=== PATIENT | female | born 1970 | race Caucasian/White ===

== ENCOUNTER 2017-02-27 11:21 | Inpatient (IN) | payer OTHER ==
[2017-02-27] VITALS (11 sets, daily range): BP systolic 73–138; BP diastolic 52–91; PULSE 53–74; TEMP 36.1–36.3; O2SAT 98–100; Ht 162.6 cm; Wt 85.8 kg
[~2017-02-27] VITALS: Ht 162.6 cm; Wt 85.8 kg
[~2017-02-27 11:21] MED LIST: ALUMSUS PO; BISA10SU38 PR; CLON0.5T3 PO; DIAZ5TAB PO; DIPH25TA24 PO; DOCU100C31 PO; FENTANYL CITRATE INJ 50 MCG/1 ML 2 ML VIAL IV ONE; FLNIN NAE; GFNSR600 PO; HYDR1OIN11 TOP; IBUP1CAP9 PO; KETAMINE HCL INJ 50 MG/ML 10 ML VIAL IV ONE; LOPE-5 PO; MIDAZOLAM HCL 5 MG/ML 2ML VIAL IV ONE; NEOMOIN3 TOP; NYSTPOW2 TOP; POTA-327 PO; RBTDMUDL5 PO; SODIUM CHLORIDE 0.9% 10ML FLUSH IV ONE; SODIUM CHLORIDE 0.9% 2.5 ML FLUSH IV ONE; SODIUM CHLORIDE 0.9% INJ 10 ML VIAL IV ONE; TYLOTC500 PO; VECURONIUM BROMIDE 10 MG VIAL IV ONE; [UNRECOGNIZED DRUG - CODE] PO; [UNRECOGNIZED DRUG - CODE] TOP
[2017-02-27] MEDS ORDERED: RAPID SEQUENCE INDUCTION BAG ONE (12:17)
--- NOTE | 2017-02-27 12:20 | EMERGENCY ROOM VISIT NOTE ---
History Report prepared by Luma: Nubia Velazquez Under the Supervision of: Dr. Tony Bullard M.D. First contact with patient: 12:05 Chief Complaint: RESPIRATORY PROBLEMS Stated Complaint: STRAINED BREATHING AT REST, LETHARGY History of Present Illness The patient is a 46 year old female who presents to the Emergency Room with her caregiver from [facility]. He states "the [employer] told me I should bring her to [facility]. They did 2 chest x-rays there and she has persistently been having trouble breathing. She also has reduced lung capacity." He notes at [facility] her oxygen levels were in the 70s. This HPI is limited secondary to the patient' s status. Source of History: caregiver History Limited By: dyspnea Position: other (global) Timing: other (persistent) Note: Unobtainable secondary to the patient's status. Review of Systems ROS is limited secondary to the patient's status. Past Medical & Surgical Medical Problems: (1) Acute respiratory failure with hypoxia (2) ANXIETY STATE NOS (3) Aspiration pneumonia (4) HYPERLIPIDEMIA NEC/NOS (5) HYPOXEMIA (6) SEVERE MENTAL RETARDAT Family History FHx: cancer Social History Smoking Status: Never Smoker Alcohol Use: none Drug Use: none Marital Status: single Housing Status: assisted living Occupation Status: disabled Current/Historical Medications Scheduled Clonazepam (Klonopin), 0.5 MG PO TID Diazepam (Valium), 5 MG PO QD@2000 Diazepam (Valium), 2.5 MG PO BID Docusate Sodium (Docusate Sodium), 100 MG PO BID Doxepin Hcl (Sinequan), 10 MG PO QD@2000 Ethinyl Estradiol/Levonorgest (Rhona-28), 1 TAB PO DAILY Fexofenadine Hcl (Nasrin), 180 MG PO DAILY Fluticasone Propionate (Nasal) (Flonase Allergy Relief), 2 SPRAYS RAGHAV DAILY Guaifenesin Ext Rel (Mucinex Ext Rel), 1,200 MG PO BID Magnesium Oxide (Mag-Ox), 400 MG PO BID Montelukast Sodium (Singulair), 10 MG PO HS Multiple Vitamin (Multivitamin), 1 TABLET PO DAILY Omeprazole (Prilosec), 20 MG PO DAILY Potassium Chloride (Micro-K Ext Rel), 10 MEQ PO BID Pravastatin Sodium (Pravachol), 20 MG PO HS Sertraline (Zoloft), 25 MG PO DAILY Trazodone Hcl (Trazodone), 100 MG PO UD Scheduled PRN Acetaminophen (Tylenol), 500 MG PO Q4 PRN for Pain or Fever Albuterol Sulf (Proventil 0.083% 2.5MG/3ML), 2.5 MG INH Q2H PRN Aluminum/Magnesium/Simeth (Maalox Max Susp), 30 ML PO Q4H PRN for Indigestion Amoxicillin (Amoxil), 2,000 MG PO UD PRN Bisacodyl (Dulcolax), 1 SUPP MN UD PRN Dermatological Products, Misc. (Liquid Bandage), 1 APPLN TOP for CUTS,SCRAPES Dextromethorphan-Guaifenesin (Robitussin-Dm Syrup), 10 ML PO Q6 PRN for Cough Diphenhydramine Hcl (Benadryl Allergy), 1 TAB PO Q6H PRN for Itching Hydrocortisone (Topical) (Cortizone-10), 1 APPLN TOP TID PRN for RASH Ibuprofen (Ibuprofen), 400 MG PO Q6 PRN for MENSTRUAL CRAMPS Loperamide Hcl (Imodium A-D), 2 MG PO UD PRN for Diarrhea Neomycin/Polymyx/Bacitr (Neosporin), 1 APPL TOP for CUTS,SCRAPES Nystatin-Triamcinolone (Nystatin/Triamcinolon... 127902-2.1 Unit/gm-%), 1 APPLN TD TID PRN for PRN Powders (Vagisil Deodorant), 1 APPL TOP UD PRN for VAGINAL ICTH/REDNESS Miscellaneous Medications Lactobacillus (Floranex) Starch-Maltodextrin (Thickenin (Thick-It Original), PO Allergies Coded Allergies: Etomidate (Verified Allergy, Unknown, UNKNOWN, 02/27/17) Haloperidol (Verified Allergy, Unknown, 02/27/17) Physical Exam Vital Signs Date Time Temp Pulse Resp B/P (MAP) Pulse Ox O2 Delivery O2 Flow Rate FiO2 02/27/17 13:21 66 18 82/54 100 02/27/17 13:16 74 18 87/57 100 02/27/17 13:15 60 02/27/17 13:11 78 19 100 02/27/17 13:10 96/66 02/27/17 13:10 100 02/27/17 13:06 89 18 80/55 100 02/27/17 13:02 87/47 02/27/17 13:01 86 25 02/27/17 12:41 99 16 97 02/27/17 12:36 89 4 98 02/27/17 12:31 81 20 86 02/27/17 12:27 110/78 02/27/17 12:26 84 13 82 02/27/17 12:26 100 02/27/17 12:21 87 02/27/17 12:21 89 21 95 02/27/17 12:16 93 21 Physical Exam GENERAL: Patient is a healthy-appearing well-nourished female HEAD: Normocephalic atraumatic EYES: Ocular movements intact pupils equal and react to light OROPHARYNX Cyanotic around oral mucosal area NECK: Supple no nuchal rigidity CHEST: Good equal expansion LUNGS: Clear and equal to auscultation CARDIAC: Normal S1 and S2 ABDOMEN: Soft nontender no guarding BACK: No CVA tenderness EXTREMITIES: No pain upon palpation normal muscle strength in all groups no clubbing cyanosis or edema NEURO: Patient is following commands and answering questions appropriately. Alert and oriented x3 Cranial Nerves 2-12 grossly intact Medical Decision & Procedures ER Provider Diagnostic Interpretation: Radiology results as stated below per my review and radiologist interpretation: CHEST ONE VIEW PORTABLE HISTORY: 46 years-old Female Sepsis acute sepsis COMPARISON: Chest radiograph 07/15/2014 TECHNIQUE: Portable upright AP view of the chest FINDINGS: Endotracheal tube is present overlying the midline terminating at the level of the stan. Chronic right perihilar and bibasilar opacities are again noted. Chronic reticular bilateral opacities redemonstrated with new multifocal patchy alveolar opacities throughout the left lung. No pneumothorax or large pleural effusion. Emphysema. Bones of the chest appear grossly intact. IMPRESSION: 1. Endotracheal tube terminates at the level the stan. This could be retracted approximately 2.5 cm. 2. Multifocal alveolar opacities are present within the lung bases and left upper lobe suspicious for pneumonia and/or pneumonitis. Please refer to the CTA of the chest of same day for further details. The above report was generated using voice recognition software. It may contain grammatical, syntax or spelling errors. Electronically signed by: Marlon Contreras M.D. 02/27/2017 1:10 PM Dictated Date/Time: 02/27/2017 1:06 PM HEAD WITHOUT CONTRAST (CT) CLINICAL HISTORY: 46 years-old Female with Pt AMS. Acute altered mental status with lethargy TECHNIQUE: Multiple axial CT images of the head were obtained without contrast. A dose lowering technique was utilized adhering to the principles of ALARA. COMPARISON: CT head 12/05/2015. FINDINGS: No acute intracranial hemorrhage, midline shift, intracranial mass, hydrocephalus, or territorial ischemia. Prominent CSF space of the posterior fossa is unchanged and may be congenital, unchanged from comparison. The calvarium is intact. The paranasal sinuses, mastoid air cells, and middle ear cavities are clear. Note is made of disconjugate gaze. IMPRESSION: No acute intracranial abnormality. The above report was generated using voice recognition software. It may contain grammatical, syntax or spelling errors. Electronically signed by: Marlon Contreras M.D. 02/27/2017 1:05 PM Dictated Date/Time: 02/27/2017 1:02 PM (CHEST FOR PE) ANGIO WITH CT DOSE: 1070.49 mGy.cm HISTORY: 46 years-old Female presents with acute hypoxia, lethargy and respiratory failure. TECHNIQUE: Multiple CTA images of the chest were obtained after the intravenous administration of 90 ml Optiray 320. Coronal and sagittal MIPS were obtained from the axial data set and were submitted for review. A dose lowering technique was utilized adhering to the principles of ALARA. COMPARISON: Chest radiograph of same day, chest radiograph 07/15/2014, CTA chest 03/17/2009. FINDINGS: CTA: The heart is mildly enlarged. The thoracic aorta is not well opacified secondary to contrast bolus timing. Imaged great vessels appear to be patent. No evidence of aortic dissection or aneurysm. The pulmonary arterial tree is opacified to the level of the proximal portion of the subsegmental branches and demonstrates no focal filling defects to suggest pulmonary thromboembolic disease. Air within the right subclavian vein is likely iatrogenic. CT CHEST: Endotracheal tube is present within the trachea terminating at the level of the stan. Heterogeneous appearance of the thyroid suggests multinodular goiter. Low attenuating right hilar lymph node measures 1.3 x 1.5 cm on image 175 series 6 and appears unchanged from 03/17/2009 study. Chronic low attenuating consolidations with spiculated and irregular margins demonstrating macroscopic fat attenuation are again seen bilaterally with a 5.1 x 4.4 cm consolidation present within the perihilar right lower lobe abutting the fissure, previously measuring approximately 4.7 x 4.5 cm on study dated 03/09/2009. Additional similar-appearing consolidation is present within the left lower lobe, 5.3 x 7.0 cm, previously 5.0 x 8.6 cm. Moderate to severe upper lobe predominant centrilobular emphysema with chronic bilateral reticular opacities suggesting areas of chronic scarring. There are patchy airspace opacities present bilaterally, notably within the left greater than right upper lobes with groundglass and consolidative opacities of the lower lobes suggesting areas of atelectasis and/or pneumonitis. Fatty attenuating spiculated opacity of the right upper lobe measuring 1.2 x 1.8 cm on image 185 series 6 is increase in size from comparison, previously 0.9 x 1.3 cm. Mild bronchial wall thickening of the lung bases. Liver appears mildly enlarged. Soft tissues are unremarkable. Bones appear intact. IMPRESSION: 1. No acute aortic pathology or evidence of pulmonary thromboembolic disease. 2. Multifocal consolidative alveolar opacities of the left greater than right upper lobes and to a lesser extent within the bilateral lower lobes suggests multifocal pneumonia. 3. Large irregular masslike areas of low attenuating consolidation with macroscopic fat attenuation of the perihilar right upper lobe and basal left lower lobe are again noted without significant change from 03/17/2009 study with 1.8 cm low attenuating consolidation of the right upper lobe mildly enlarged from comparison. Differential considerations would include chronic lipoid pneumonia, or pulmonary alveolar proteinosis among other etiologies. These findings could be correlated with bronchoscopy and tissue sampling for definitive diagnosis. 4. Low attenuating right hilar lymph node also noted. The above report was generated using voice recognition software. It may contain grammatical, syntax or spelling errors. Electronically signed by: Marlon Contreras M.D. 02/27/2017 1:36 PM Dictated Date/Time: 02/27/2017 1:20 PM Laboratory Results 02/27/17 12:35 Red Blood Count 4.43, Mean Corpuscular Volume 97.1, Mean Corpuscular Hemoglobin 30.2, Mean Corpuscular Hemoglobin Concent 31.2, Mean Platelet Volume 10.1, Neutrophils (%) (Auto) 61.4, Lymphocytes (%) (Auto) 22.6, Monocytes (%) (Auto) 13.4, Eosinophils (%) (Auto) 2.0, Basophils (%) (Auto) 0.3, Neutrophils # (Auto ) 7.04, Lymphocytes # (Auto) 2.59, Monocytes # (Auto) 1.54, Eosinophils # (Auto ) 0.23, Basophils # (Auto) 0.03 02/27/17 12:35 Test 02/27/17 12:35 02/27/17 12:44 02/27/17 12:49 02/27/17 13:22 White Blood Count 11.46 K/uL (4.8-10.8) Red Blood Count 4.43 M/uL (4.2-5.4) Hemoglobin 13.4 g/dL (12.0-16.0) Hematocrit 43.0 % (37-47) Mean Corpuscular Volume 97.1 fL (80-100) Mean Corpuscular Hemoglobin 30.2 pg (25-34) Mean Corpuscular Hemoglobin Concent 31.2 g/dl (32-36) Platelet Count 250 K/uL (130-400) Mean Platelet Volume 10.1 fL (7.4-10.4) Neutrophils (%) (Auto) 61.4 % Lymphocytes (%) (Auto) 22.6 % Monocytes (%) (Auto) 13.4 % Eosinophils (%) (Auto) 2.0 % Basophils (%) (Auto) 0.3 % Neutrophils # (Auto) 7.04 K/uL (1.4-6.5) Lymphocytes # (Auto) 2.59 K/uL (1.2-3.4) Monocytes # (Auto) 1.54 K/uL (0.11-0.59) Eosinophils # (Auto) 0.23 K/uL (0-0.5) Basophils # (Auto) 0.03 K/uL (0-0.2) RDW Standard Deviation 54.8 fL (36.4-46.3) RDW Coefficient of Variation 15.6 % (11.5-14.5) Immature Granulocyte % (Auto) 0.3 % Immature Granulocyte # (Auto) 0.03 K/uL (0.00-0.02) Prothrombin Time 10.2 SECONDS (9.0-12.0) Prothromb Time International Ratio 1.0 (0.9-1.1) Activated Partial Thromboplast Time 24.5 SECONDS (21.0-31.0) Partial Thromboplastin Ratio 0.9 Estimated GFR () 75.0 Estimated GFR (Non- 64.7 BUN/Creatinine Ratio 12.6 (10-20) Calcium Level 8.1 mg/dl (8.5-10.1) Total Bilirubin 0.2 mg/dl (0.2-1) Aspartate Amino Transf (AST/SGOT) 62 U/L (15-37) Alanine Aminotransferase (ALT/SGPT) 52 U/L (12-78) Alkaline Phosphatase 101 U/L (45-117) Total Creatine Kinase 567 U/L (26-192) Creatine Kinase MB 6.3 ng/ml (0.5-3.6) Creatine Kinase MB Ratio 1.1 (0-3.0) Total Protein 8.3 gm/dl (6.4-8.2) Albumin 3.0 gm/dl (3.4-5.0) Globulin 5.3 gm/dl (2.5-4.0) Albumin/Globulin Ratio 0.6 (0.9-2) Bedside Lactic Acid Venous 3.12 mmol/L (0.90-1.70) Bedside Chloride 95 mEq/L (101-112) Bedside Total CO2 34 mEq/l (24-31) Anion Gap 16.0 mmol/L (16-25) Bedside Blood Urea Nitrogen 14 mg/dl (7-18) Bedside Creatinine 0.9 mg/dl (0.6-1.3) Bedside Glucose (other) 99 mg/dl (70-99) Bedside Ionized Calcium (Prosper) 1.12 mmol/l (1.12-1.32) Bedside Hemoglobin 11.9 g/dl (12.0-16.0) Bedside Hematocrit 35 % (37-47) Bedside Blood Gas pH (LAB) 7.35 (7.35-7.45) Bedside Blood Gas pCO2 (LAB) 63 mmHg (35-46) Bedside Blood Gas pO2 (LAB) 220 mmHg (80-95) Bedside Blood Gas HCO3 (LAB) 35 meq/L (19-24) Bedside Blood Gas Total CO2 37 mEq/l (24-31) Bedside Blood Gas Base Excess (LAB) 9.0 meq/L (-9-1.8) Bedside Blood Gas O2 Saturation 100.0 % (90-95) Bedside Sodium 138 mEq/L (135-144) Bedside Potassium 4.5 mEq/L (3.3-5.0) Labs reviewed by ED physician. Medications Administered Medications (Trade) Dose Ordered Sig/Kiera Route Start Time Stop Time Status Last Admin Dose Admin Miscellaneous (Rapid Sequence Induction Bag) 1 ea STK-MED ONCE N/A 02/27/17 12:17 02/27/17 12:18 DC 02/27/17 12:17 1 EA Propofol (Diprivan Iv Emulsion 100ml Vial) 1 dose STK-MED ONCE IV 02/27/17 12:26 02/27/17 12:27 DC 02/27/17 14:25 1 DOSE Albuterol/ Ipratropium (Duoneb) 12 ml ONE ONCE INH 02/27/17 12:45 02/27/17 12:46 DC 02/27/17 13:00 12 ML Methylprednisolone Sodium Succinate (Solu-Medrol IV) 60 mg NOW STAT IV 02/27/17 12:36 02/27/17 12:39 DC 02/27/17 14:34 60 MG Cefepime HCl 2000 mg/Dextrose 122 ml @ 200 mls/hr NOW STAT IV 02/27/17 12:36 02/27/17 13:12 DC 02/27/17 14:06 200 MLS/HR Levofloxacin (Levaquin / D5W) 750 mg NOW STAT IV 02/27/17 12:36 02/27/17 12:39 DC 02/27/17 14:35 750 MG Vancomycin HCl 1000 mg/Sodium Chloride 270 ml @ 125 mls/hr NOW STAT IV 02/27/17 12:36 02/27/17 14:45 DC 02/27/17 14:06 125 MLS/HR Sodium Chloride 1,000 ml @ 999 mls/hr Q1H1M STAT IV 02/27/17 12:36 02/27/17 13:36 DC 02/27/17 14:22 999 MLS/HR Magnesium Sulfate (Magnesium Sulfate) 1 gm NOW STAT IV 02/27/17 12:45 02/27/17 12:46 DC 02/27/17 14:35 1 GM Propofol (Diprivan Iv Emulsion 100ml Vial) 1 dose UD PRN IV 02/27/17 13:10 03/02/17 13:09 02/27/17 16:56 1 DOSE ECG Indication: SOB/dyspnea Rate (beats per minute): 64 Rhythm: sinus rhythm Findings: no acute ischemic change, prolonged QT, no ectopy, other (short MN, t wave inversion, anterior leads) ED Course 1205: Past medical records reviewed. The patient was evaluated in room A1. A complete history and physical examination was performed. 1236: Sodium Chloride 1000 ml @ 999 mls/hr, Vancomycin HCI 1000 mg/Sodium Chloride 270 ml @ 999 mls/hr IV, Levofloxacin 750 mg IV, Cefepime HCI 2000 mg/ Dextrose 122 ml @ 200 mls/hr, Methylprednisolone Sodium Succinate 60 mg IV. 1245: Magnesium Sulfate 1 gm IV, Propofol 1 dose IV, Duoneb 12 ml INH. 1311: I discussed the patient's case with Dr. Butterfield, he has agreed to evaluate the patient for further management and care. Medical Decision The patient is a 46 year old female who presents to the ED with complaints of SOB. Differential diagnosis: Etiologies such as infections, reactive airway disease, pneumonia, pneumothorax , COPD, CHF, cardiac ischemia, pulmonary embolism, musculoskeletal, gastrointestinal, as well as others were entertained. This is a 46-year-old female who presents to emergency department hypoxic and in acute distress. The patient keeps tearing at all lines and will not hold still. For this reason the patient was transferred to the trauma bay immediately. To get the patient's hypoxia fixed and her comfortable she was intubated to protect her airway. She was sent for a CAT scan of the head as well as the chest. This was concerning for aspiration pneumonia. The patient was found to have a lactic acid of 3. An IV was established, patient given normal saline bolus, cefepime, Levaquin, vancomycin. She was pancultured up and discussed with both the ICU as well as the hospitalist. Caregivers were in agreement with the treatment plan. Medication Reconcilliation Current Medication List: was personally reviewed by me Blood Pressure Screening Patient's blood pressure: Normal blood pressure Consults Time Called: 1309 Consulting Physician: Katharine Bragg Returned Call: 1311 I discussed the patient's case with Dr. Butterfield, he has agreed to evaluate the patient for further management and care. Impression Primary Impression: Respiratory failure Additional Impression: Pneumonia Critical Care I have personally spent greater than 90 minutes of critical care time in the direct management of this patient. This includes bedside care, interpretation of diagnostic studies, and testing, discussion with consultants, patient, and family members, and other required patient management activities. This 90 minutes is in excess of all separately billable procedures. Scribe Attestation The scribe's documentation has been prepared under my direction and personally reviewed by me in its entirety. I confirm that the note above accurately reflects all work, treatment, procedures, and medical decision making performed by me. Departure Information Dispostion Being Evaluated By Hospitalist Referrals No Doctor, Assigned (PCP) Patient Instructions My [facility] Problem Qualifiers Primary Impression: Respiratory failure Chronicity: acute Respiratory failure complication: hypoxia Qualified Codes : J96.01 - Acute respiratory failure with hypoxia Additional Impression: Pneumonia Pneumonia type: due to unspecified organism Laterality: unspecified laterality Lung location: unspecified part of lung Qualified Codes: J18.9 - Pneumonia, unspecified organism
[2017-02-27] MEDS ORDERED: PROPOFOL IV EMULSION 10 MG/ML 20 ML VIAL IV ONE (12:23)
[2017-02-27] MEDS ORDERED: KETAMINE HCL INJ 50 MG/ML 10 ML VIAL ONE (12:26)
[2017-02-27] MEDS ORDERED: PROPOFOL IV EMULSION 10 MG/ML 100 ML VIAL IV ONE (12:26)
[2017-02-27] MEDS ORDERED: VANCOMYCIN INJ 1,000 MG in SODIUM CHLORIDE 0.9% 250ML 250 ML IV STA (12:36)
[2017-02-27] MEDS ORDERED: SODIUM CHLORIDE 0.9% 1000ML 1,000 ML IV STA (12:36)
[2017-02-27] MEDS ORDERED: METHYLPREDNISOLONE 125 MG VIAL IV STA (12:36)
[2017-02-27] MEDS ORDERED: CEFEPIME IV 2,000 MG in DEXTROSE 5% 100ML 100 ML IV STA (12:36)
[2017-02-27] MEDS ORDERED: LEVAQUIN 750MG / 150ML D5W IV STA (12:36)
[2017-02-27] MEDS ORDERED: PROPOFOL IV EMULSION 10 MG/ML 100 ML VIAL IV PRN (12:45)
[2017-02-27] MEDS ORDERED: OPTIRAY 320 IV PRN (12:45)
[2017-02-27] MEDS ORDERED: MAGNESIUM SULFATE 1GM / D5W 1 GM BAG IV STA (12:45)
[2017-02-27] MEDS ORDERED: ALBUT/IPRATROP 3MG/0.5MG NEB 3 ML VIAL INH ONE (12:45)
[2017-02-27 12:57] LABS: BASO % 0.3 %; BASO ABS # 0.03 K/uL (0-0.2); COMPLETE YES; IG% 0.3 %; LYMPH % 22.6 %; LYMPH ABS # 2.59 K/uL (1.2-3.4); MEAN CELL VOLUME 97.1 fL (80-100); MEAN CORPUSCULAR HEMOGLOBIN 30.2 pg (25-34); MEAN CORPUSCULAR HGB CONC 31.2 g/dl (32-36); MEAN PLATELET VOLUME 10.1 fL (7.4-10.4); MONO % 13.4 %; NEUT % 61.4 %; PLATELET COUNT 250 K/uL (130-400); RED BLOOD COUNT 4.43 M/uL (4.2-5.4); WHITE BLOOD COUNT 11.46 K/uL (4.8-10.8)
[2017-02-27 13:01] LABS: ISTAT CREATININE 0.9 mg/dl (0.6-1.3); ISTAT IONIZED CALCIUM 1.12 mmol/l (1.12-1.32)
--- NOTE | 2017-02-27 13:07 | DIAGNOSTIC IMAGING REPORT ---
HEAD WITHOUT CONTRAST (CT) CLINICAL HISTORY: 46 years-old Female with Pt AMS. Acute altered mental status with lethargy TECHNIQUE: Multiple axial CT images of the head were obtained without contrast. A dose lowering technique was utilized adhering to the principles of ALARA. COMPARISON: CT head 12/05/2015. FINDINGS: No acute intracranial hemorrhage, midline shift, intracranial mass, hydrocephalus, or territorial ischemia. Prominent CSF space of the posterior fossa is unchanged and may be congenital, unchanged from comparison. The calvarium is intact. The paranasal sinuses, mastoid air cells, and middle ear cavities are clear. Note is made of disconjugate gaze. IMPRESSION: No acute intracranial abnormality. The above report was generated using voice recognition software. It may contain grammatical, syntax or spelling errors. Electronically signed by: Marlon Contreras M.D. 02/27/2017 1:05 PM Dictated Date/Time: 02/27/2017 1:02 PM
--- NOTE | 2017-02-27 13:12 | DIAGNOSTIC IMAGING REPORT ---
CHEST ONE VIEW PORTABLE HISTORY: 46 years-old Female Sepsis acute sepsis COMPARISON: Chest radiograph 07/15/2014 TECHNIQUE: Portable upright AP view of the chest FINDINGS: Endotracheal tube is present overlying the midline terminating at the level of the stan. Chronic right perihilar and bibasilar opacities are again noted. Chronic reticular bilateral opacities redemonstrated with new multifocal patchy alveolar opacities throughout the left lung. No pneumothorax or large pleural effusion. Emphysema. Bones of the chest appear grossly intact. IMPRESSION: 1. Endotracheal tube terminates at the level the stan. This could be retracted approximately 2.5 cm. 2. Multifocal alveolar opacities are present within the lung bases and left upper lobe suspicious for pneumonia and/or pneumonitis. Please refer to the CTA of the chest of same day for further details. The above report was generated using voice recognition software. It may contain grammatical, syntax or spelling errors. Electronically signed by: Marlon Contreras M.D. 02/27/2017 1:10 PM Dictated Date/Time: 02/27/2017 1:06 PM
[2017-02-27 13:13] LABS: PARTIAL THROMBOPLASTIN RATIO 0.9; PROTHROMBIN TIME (PATIENT) 10.2 SECONDS (9.0-12.0)
[2017-02-27 13:15] LABS: ALT/SGPT 52 U/L (12-78); AST/SGOT 62 U/L (15-37); BLOOD UREA NITROGEN 13 mg/dl (7-18); BUN/CREATININE RATIO 12.6 (10-20); CALCIUM 8.1 mg/dl (8.5-10.1); CARBON DIOXIDE 36 mmol/L (21-32); CHLORIDE 97 mmol/L (98-107); CREATININE 1.03 mg/dl (0.60-1.20); GLUCOSE 89 mg/dl (70-99); SODIUM 135 mmol/L (136-145)
[2017-02-27] MEDS ORDERED: GLUCOSE 10 TABS/TUBE PO PRN (13:15)
[2017-02-27] MEDS ORDERED: IPRATROPIUM BROMIDE NEB SOLN 0.02% 2.5 ML VIAL INH PRN (13:15)
[2017-02-27] MEDS ORDERED: GLUCOSE 40% GEL 15 GM TUBE PO PRN (13:15)
[2017-02-27] MEDS ORDERED: LEVALBUTEROL 1.25MG/0.5ML NEB INH PRN (13:15)
[2017-02-27] MEDS ORDERED: DEXTROSE 50% 50 ML SYR IV PRN (13:15)
[2017-02-27] MEDS ORDERED: GLUCAGON FOR INJ 1 MG VIAL SQ PRN (13:15)
[2017-02-27] MEDS ORDERED: ICU ELECTROLYTE REPLACEMENT PROTOCOL PRN (13:15)
--- NOTE | 2017-02-27 13:20 | Critical Care Consultation ---
Critical Care Consultation Date of Consultation: Feb 27, 2017. Attending Physician: Scout Reason for Consultation: Hypoxic respiratory failure History of Present Illness History is obtained from the senior care caregivers, emergency department physician. Patient had increased work of breathing and was taking to an urgent care noted to have oxygen saturations 70s. After chest x-ray were attempted they were informed to bring the patient to the emergency department. Initially emergency Department patient's oxygen saturation in the 60s and 70s she was cyanotic and agitated. In an effort to protect her and facilitate treatment of patient was intubated in the emergency department. Past Medical/Surgical History Recurrent aspiration Bronchiectasis Angelman syndrome Aspiration pneumonia Severe mental retardation Hyperlipidemia Family History FHx: cancer Social History Resides in a senior care Smoking Status: Never Smoker Drug Use: none Marital Status: single Housing Status: assisted living Occupation Status: disabled Allergies Coded Allergies: Etomidate (Verified Allergy, Unknown, UNKNOWN, 02/27/17) Haloperidol (Verified Allergy, Unknown, 02/27/17) Home Medications Scheduled Clonazepam (Klonopin), 0.5 MG PO TID Diazepam (Valium), 5 MG PO QD@2000 Diazepam (Valium), 2.5 MG PO BID Docusate Sodium (Docusate Sodium), 100 MG PO BID Doxepin Hcl (Sinequan), 10 MG PO QD@2000 Ethinyl Estradiol/Levonorgest (Towson-28), 1 TAB PO DAILY Fexofenadine Hcl (Nasrin), 180 MG PO DAILY Fluticasone Propionate (Nasal) (Flonase Allergy Relief), 2 SPRAYS RAGHAV DAILY Guaifenesin Ext Rel (Mucinex Ext Rel), 1,200 MG PO BID Magnesium Oxide (Mag-Ox), 400 MG PO BID Montelukast Sodium (Singulair), 10 MG PO HS Multiple Vitamin (Multivitamin), 1 TABLET PO DAILY Omeprazole (Prilosec), 20 MG PO DAILY Potassium Chloride (Micro-K Ext Rel), 10 MEQ PO BID Pravastatin Sodium (Pravachol), 20 MG PO HS Sertraline (Zoloft), 25 MG PO DAILY Trazodone Hcl (Trazodone), 100 MG PO UD Scheduled PRN Acetaminophen (Tylenol), 500 MG PO Q4 PRN for Pain or Fever Albuterol Sulf (Proventil 0.083% 2.5MG/3ML), 2.5 MG INH Q2H PRN Aluminum/Magnesium/Simeth (Maalox Max Susp), 30 ML PO Q4H PRN for Indigestion Amoxicillin (Amoxil), 2,000 MG PO UD PRN Bisacodyl (Dulcolax), 1 SUPP AR UD PRN Dermatological Products, Misc. (Liquid Bandage), 1 APPLN TOP for CUTS,SCRAPES Dextromethorphan-Guaifenesin (Robitussin-Dm Syrup), 10 ML PO Q6 PRN for Cough Diphenhydramine Hcl (Benadryl Allergy), 1 TAB PO Q6H PRN for Itching Hydrocortisone (Topical) (Cortizone-10), 1 APPLN TOP TID PRN for RASH Ibuprofen (Ibuprofen), 400 MG PO Q6 PRN for MENSTRUAL CRAMPS Loperamide Hcl (Imodium A-D), 2 MG PO UD PRN for Diarrhea Neomycin/Polymyx/Bacitr (Neosporin), 1 APPL TOP for CUTS,SCRAPES Nystatin-Triamcinolone (Nystatin/Triamcinolon... 241904-0.1 Unit/gm-%), 1 APPLN TD TID PRN for PRN Powders (Vagisil Deodorant), 1 APPL TOP UD PRN for VAGINAL ICTH/REDNESS Miscellaneous Medications Lactobacillus (Floranex) Starch-Maltodextrin (Thickenin (Thick-It Original), PO Current Inpatient Medications Current Inpatient Medications Medications (Trade) Dose Ordered Sig/Kiera Route Start Time Stop Time Status Last Admin Dose Admin Propofol (Diprivan Iv Emulsion 100ml Vial) 1 dose UD PRN IV 02/27/17 12:45 03/02/17 12:44 Ioversol (Optiray 320) 125 ml UD PRN IV 02/27/17 12:45 03/03/17 12:44 UNV Vancomycin HCl 1000 mg/Sodium Chloride 270 ml @ 125 mls/hr NOW STAT IV 02/27/17 12:36 02/27/17 14:45 Sodium Chloride 1,000 ml @ 999 mls/hr Q1H1M STAT IV 02/27/17 12:36 02/27/17 13:36 Miscellaneous Information ( [facility] Electrolyte Replacement Protocol) 1 ea per protocol PRN N/A 02/27/17 13:15 03/06/17 13:14 UNV Pantoprazole Sodium (Protonix Tab) 40 mg DAILY PO 02/28/17 09:00 03/30/17 08:59 UNV Levalbuterol (Xopenex 1.25MG/ 0.5ML Neb) 1.25 mg Q4 PRN INH 02/27/17 13:15 03/29/17 13:14 UNV Ipratropium Manley (Atrovent 0.02% 0.5MG/2.5ML Neb) 0.5 mg Q4H PRN INH 02/27/17 13:15 03/29/17 13:14 UNV Insulin Aspart (novoLOG ASPART) SLIDING SCALE If C... ACHS SC 02/27/17 16:00 03/29/17 15:59 UNV Glucose (Glucose 40% Gel) 15-30 GRAMS 15 GRAMS... UD PRN PO 02/27/17 13:15 03/29/17 13:14 UNV Glucose (Glucose Chew Tab) 4-8 Tablets 4 Tabl... UD PRN PO 02/27/17 13:15 03/29/17 13:14 UNV Dextrose (Dextrose 50% 50ML Syringe) 25-50ML OF 50% DW IV FOR... UD PRN IV 02/27/17 13:15 03/29/17 13:14 UNV Glucagon (Glucagon Inj) 1 mg UD PRN SQ 02/27/17 13:15 03/29/17 13:14 UNV Miscellaneous Information (Consult Glycemic Management Pharmacy) 1 ea ONE STAT N/A 02/27/17 13:10 02/27/17 13:11 UNV Fentanyl Citrate (Fentanyl Inj) 100 mcg Q2H PRN IV 02/27/17 13:15 03/13/17 13:14 UNV Propofol (Diprivan Iv Emulsion 100ml Vial) 1 dose UD STAT IV 02/27/17 13:10 02/27/17 13:11 UNV Review of Systems Unable to obtain secondary to patient's profound mental retardation Physical Exam Date Time Temp Pulse Resp B/P (MAP) Pulse Ox O2 Delivery O2 Flow Rate FiO2 02/27/17 12:21 87 General Appearance: WD/WN, mild distress (cyanosis mild) Head: normocephalic Eyes: other (strabismus) Neck: supple, no thyromegaly Respiratory: rhonchi (scattered bilaterally), wheezing (scattered bilaterally) Cardiovasular: regular rate/rhythm, normal S1S2 Abdomen: non tender, no masses, no guarding Genitourinary - Female: other (Dumont present) Upper Extremities: no edema Pulses: radial (R) (2+), radial (L) (2+) Neuro: alert, other (uncooperative with examination, moving all 4 extremities does not follow verbal commands at this time) Laboratory Results Last 24 Hours Test 02/27/17 12:11 02/27/17 12:35 02/27/17 12:44 02/27/17 12:49 Creatine Kinase MB Ratio White Blood Count 11.46 K/uL Red Blood Count 4.43 M/uL Hemoglobin 13.4 g/dL Hematocrit 43.0 % Mean Corpuscular Volume 97.1 fL Mean Corpuscular Hemoglobin 30.2 pg Mean Corpuscular Hemoglobin Concent 31.2 g/dl Platelet Count 250 K/uL Mean Platelet Volume 10.1 fL Neutrophils (%) (Auto) 61.4 % Lymphocytes (%) (Auto) 22.6 % Monocytes (%) (Auto) 13.4 % Eosinophils (%) (Auto) 2.0 % Basophils (%) (Auto) 0.3 % Neutrophils # (Auto) 7.04 K/uL Lymphocytes # (Auto) 2.59 K/uL Monocytes # (Auto) 1.54 K/uL Eosinophils # (Auto) 0.23 K/uL Basophils # (Auto) 0.03 K/uL RDW Standard Deviation 54.8 fL RDW Coefficient of Variation 15.6 % Immature Granulocyte % (Auto) 0.3 % Immature Granulocyte # (Auto) 0.03 K/uL Prothrombin Time 10.2 SECONDS Prothromb Time International Ratio 1.0 Activated Partial Thromboplast Time 24.5 SECONDS Partial Thromboplastin Ratio 0.9 Sodium Level 135 mmol/L Potassium Level 4.0 mmol/L Chloride Level 97 mmol/L Carbon Dioxide Level 36 mmol/L Anion Gap 2.0 mmol/L 16.0 mmol/L Blood Urea Nitrogen 13 mg/dl Creatinine 1.03 mg/dl Estimated GFR () 75.0 Estimated GFR (Non- 64.7 BUN/Creatinine Ratio 12.6 Random Glucose 89 mg/dl Calcium Level 8.1 mg/dl Aspartate Amino Transf (AST/SGOT) 62 U/L Alanine Aminotransferase (ALT/SGPT) 52 U/L Albumin 3.0 gm/dl Bedside Lactic Acid Venous 3.12 mmol/L Bedside Hemoglobin 15.0 g/dl Bedside Hematocrit 44 % Bedside Sodium 139 mEq/L Bedside Potassium 4.5 mEq/L Bedside Chloride 95 mEq/L Bedside Total CO2 34 mEq/l Bedside Blood Urea Nitrogen 14 mg/dl Bedside Creatinine 0.9 mg/dl Bedside Glucose (other) 99 mg/dl Bedside Ionized Calcium (Prosper) 1.12 mmol/l Diagnostic Results (CHEST FOR PE) ANGIO WITH CT DOSE: 1070.49 mGy.cm HISTORY: 46 years-old Female presents with acute hypoxia, lethargy and respiratory failure. TECHNIQUE: Multiple CTA images of the chest were obtained after the intravenous administration of 90 ml Optiray 320. Coronal and sagittal MIPS were obtained from the axial data set and were submitted for review. A dose lowering technique was utilized adhering to the principles of ALARA. COMPARISON: Chest radiograph of same day, chest radiograph 07/15/2014, CTA chest 03/17/2009. FINDINGS: CTA: The heart is mildly enlarged. The thoracic aorta is not well opacified secondary to contrast bolus timing. Imaged great vessels appear to be patent. No evidence of aortic dissection or aneurysm. The pulmonary arterial tree is opacified to the level of the proximal portion of the subsegmental branches and demonstrates no focal filling defects to suggest pulmonary thromboembolic disease. Air within the right subclavian vein is likely iatrogenic. CT CHEST: Endotracheal tube is present within the trachea terminating at the level of the stan. Heterogeneous appearance of the thyroid suggests multinodular goiter. Low attenuating right hilar lymph node measures 1.3 x 1.5 cm on image 175 series 6 and appears unchanged from 03/17/2009 study. Chronic low attenuating consolidations with spiculated and irregular margins demonstrating macroscopic fat attenuation are again seen bilaterally with a 5.1 x 4.4 cm consolidation present within the perihilar right lower lobe abutting the fissure, previously measuring approximately 4.7 x 4.5 cm on study dated 03/09/2009. Additional similar-appearing consolidation is present within the left lower lobe, 5.3 x 7.0 cm, previously 5.0 x 8.6 cm. Moderate to severe upper lobe predominant centrilobular emphysema with chronic bilateral reticular opacities suggesting areas of chronic scarring. There are patchy airspace opacities present bilaterally, notably within the left greater than right upper lobes with groundglass and consolidative opacities of the lower lobes suggesting areas of atelectasis and/or pneumonitis. Fatty attenuating spiculated opacity of the right upper lobe measuring 1.2 x 1.8 cm on image 185 series 6 is increase in size from comparison, previously 0.9 x 1.3 cm. Mild bronchial wall thickening of the lung bases. Liver appears mildly enlarged. Soft tissues are unremarkable. Bones appear intact. IMPRESSION: 1. No acute aortic pathology or evidence of pulmonary thromboembolic disease. 2. Multifocal consolidative alveolar opacities of the left greater than right upper lobes and to a lesser extent within the bilateral lower lobes suggests multifocal pneumonia. 3. Large irregular masslike areas of low attenuating consolidation with macroscopic fat attenuation of the perihilar right upper lobe and basal left lower lobe are again noted without significant change from 03/17/2009 study with 1.8 cm low attenuating consolidation of the right upper lobe mildly enlarged from comparison. Differential considerations would include chronic lipoid pneumonia, or pulmonary alveolar proteinosis among other etiologies. These findings could be correlated with bronchoscopy and tissue sampling for definitive diagnosis. 4. Low attenuating right hilar lymph node also noted. The above report was generated using voice recognition software. It may contain grammatical, syntax or spelling errors. Electronically signed by: Marlon Contreras M.D. 02/27/2017 1:36 PM Dictated Date/Time: 02/27/2017 1:20 PM I have reviewed the chest x-ray obtained 02/27/2017, the endotracheal tube was subsequently retracted 2 cm I have also reviewed the report and images CT scan of the head obtained 2016 Assessment & Plan Reason Critically Ill: Acute hypoxic respiratory failure secondary to multifocal pneumonia PLAN: Neuro: Angelman syndrome Profound mental retardation * Continue benzodiazepine medication * Sedation and analgesia: Continuous with propofol Resp: Acute hypoxic respiratory failure Multilobar pneumonia History bronchiectasis * We'll obtain bronchoscopy for adequate specimen * Tomorrow with pulmonology the lung nodules warrant further evaluation CV: Elevated troponins * Continue to trend * Echo cardiogram last completed 03/17/2009 * Continue statin medication Fluids/Renal: Normal all at 100 MLS per hour ID: Broad-spectrum antibiotics: Cefepime 2 g 3 times a day, vancomycin, doxycycline , Tamiflu GI/Nutrition: Nothing by mouth Obesity: BMI 34.6 * Protonix daily Heme: Leukocytosis Mild anemia Endocrine: Previous A1c checked 03/17/2009 result 5.5 On Solu-Medrol 40 mg IV every 8 hours * Accu-Cheks per protocol * CODE STATUS: Full code I have personally spent 115 minutes of critical care time in the direct management of this patient. This is a life/limb threatening event. This includes time spent evaluating patient, direct bedside care, chart review, placing orders, interpretation of diagnostic studies, discussion with consultants, patient, and family members, as well as other required patient management activities. This time is exclusive of all separately billable procedures, and teaching time and separate from and in addition to any other critical care service time.
[2017-02-27 13:29] LABS: ALB/GLOB RATIO 0.6 (0.9-2); ALKALINE PHOSPHATASE 101 U/L (45-117); CKMB/CK RATIO 1.1 (0-3.0)
--- NOTE | 2017-02-27 13:37 | DIAGNOSTIC IMAGING REPORT ---
(CHEST FOR PE) ANGIO WITH CT DOSE: 1070.49 mGy.cm HISTORY: 46 years-old Female presents with acute hypoxia, lethargy and respiratory failure. TECHNIQUE: Multiple CTA images of the chest were obtained after the intravenous administration of 90 ml Optiray 320. Coronal and sagittal MIPS were obtained from the axial data set and were submitted for review. A dose lowering technique was utilized adhering to the principles of ALARA. COMPARISON: Chest radiograph of same day, chest radiograph 07/15/2014, CTA chest 03/17/2009. FINDINGS: CTA: The heart is mildly enlarged. The thoracic aorta is not well opacified secondary to contrast bolus timing. Imaged great vessels appear to be patent. No evidence of aortic dissection or aneurysm. The pulmonary arterial tree is opacified to the level of the proximal portion of the subsegmental branches and demonstrates no focal filling defects to suggest pulmonary thromboembolic disease. Air within the right subclavian vein is likely iatrogenic. CT CHEST: Endotracheal tube is present within the trachea terminating at the level of the stan. Heterogeneous appearance of the thyroid suggests multinodular goiter. Low attenuating right hilar lymph node measures 1.3 x 1.5 cm on image 175 series 6 and appears unchanged from 03/17/2009 study. Chronic low attenuating consolidations with spiculated and irregular margins demonstrating macroscopic fat attenuation are again seen bilaterally with a 5.1 x 4.4 cm consolidation present within the perihilar right lower lobe abutting the fissure, previously measuring approximately 4.7 x 4.5 cm on study dated 03/09/2009. Additional similar-appearing consolidation is present within the left lower lobe, 5.3 x 7.0 cm, previously 5.0 x 8.6 cm. Moderate to severe upper lobe predominant centrilobular emphysema with chronic bilateral reticular opacities suggesting areas of chronic scarring. There are patchy airspace opacities present bilaterally, notably within the left greater than right upper lobes with groundglass and consolidative opacities of the lower lobes suggesting areas of atelectasis and/or pneumonitis. Fatty attenuating spiculated opacity of the right upper lobe measuring 1.2 x 1.8 cm on image 185 series 6 is increase in size from comparison, previously 0.9 x 1.3 cm. Mild bronchial wall thickening of the lung bases. Liver appears mildly enlarged. Soft tissues are unremarkable. Bones appear intact. IMPRESSION: 1. No acute aortic pathology or evidence of pulmonary thromboembolic disease. 2. Multifocal consolidative alveolar opacities of the left greater than right upper lobes and to a lesser extent within the bilateral lower lobes suggests multifocal pneumonia. 3. Large irregular masslike areas of low attenuating consolidation with macroscopic fat attenuation of the perihilar right upper lobe and basal left lower lobe are again noted without significant change from 03/17/2009 study with 1.8 cm low attenuating consolidation of the right upper lobe mildly enlarged from comparison. Differential considerations would include chronic lipoid pneumonia, or pulmonary alveolar proteinosis among other etiologies. These findings could be correlated with bronchoscopy and tissue sampling for definitive diagnosis. 4. Low attenuating right hilar lymph node also noted. The above report was generated using voice recognition software. It may contain grammatical, syntax or spelling errors. Electronically signed by: Marlon Contreras M.D. 02/27/2017 1:36 PM Dictated Date/Time: 02/27/2017 1:20 PM
[2017-02-27 13:39] LABS: ISTAT ARTERIAL BLOOD GAS HCO3 35 meq/L (19-24); ISTAT ARTERIAL BLOOD GAS PCO2 63 mmHg (35-46); ISTAT ARTERIAL BLOOD GAS PO2 220 mmHg (80-95); ISTAT ARTERIAL BLOOD GAS pH 7.35 (7.35-7.45); ISTAT CARBON DIOXIDE 37 mEq/l (24-31); ISTAT HEMATOCRIT 35 % (37-47); ISTAT HEMOGLOBIN 11.9 g/dl (12.0-16.0); ISTAT SODIUM 138 mEq/L (135-144)
[2017-02-27] MEDS ORDERED: NYST1OIN9 TD (13:52)
[2017-02-27] MEDS ORDERED: TRAZ100T29 PO (13:52)
[2017-02-27] MEDS ORDERED: DIPH1TAB87 PO (13:52)
[2017-02-27] MEDS ORDERED: POTA10CA28 PO (13:52)
[2017-02-27] MEDS ORDERED: PHARMACY GLYCEMIC MGMT CONSULT PRN (14:19)
--- NOTE | 2017-02-27 14:47 | History and Physical ---
History & Physical Date & Time of Service: Feb 27, 2017 at 14:34 Chief Complaint: Strained Breathing At Rest, Lethargy Primary Care Physician: No Doctor, Assigned History of Present Illness Source: hospital records, EMS This is a 46 year old female with a PMH of Angelman's syndrome, mental retardation, hx. of recurrent aspiration pneumonia, hx. of epilepsy - presented from her [facility] ([facility]). She was initially taken to urgent care - noted to have oxygenation in the 70s. After a few CXR's - her caretakers were told to bring her to the ED. She was brought in by [facility] van - her O2 sats in the ED were in the 60s and 70s. She was cyanotic and was also agitated. She was fighting and due to this to protect her and her airway - it was decided that she would be intubated. CXR and CT chest were obtained and suggestive of multifocal pneumonia. She has had a history of aspiration issues in the past. Past Medical/Surgical History Medical Problems: (1) ANXIETY STATE NOS Status: Chronic (2) HYPERLIPIDEMIA NEC/NOS Status: Chronic (3) HYPOXEMIA Status: Chronic (4) SEVERE MENTAL RETARDAT Status: Chronic Family History FHx: cancer Social History Smoking Status: Never Smoker Drug Use: none Marital Status: single Housing status: assisted living Occupational Status: disabled Immunizations History of Influenza Vaccine: Yes History of Tetanus Vaccine?: Yes Tetanus Immunization Date: Aug 19, 2004 History of Pneumococcal: Yes Pneumococcal Date: Jun 28, 2008 History of Hepatitis B Vaccine: Yes Hepatitis Immunization Date: Feb 26, 2003 Multi-Drug Resistant Organisms History of MDRO: Yes Allergies Coded Allergies: Etomidate (Verified Allergy, Unknown, UNKNOWN, 02/27/17) Haloperidol (Verified Allergy, Unknown, 02/27/17) Home Medications Scheduled Clonazepam (Klonopin), 0.5 MG PO TID Diazepam (Valium), 5 MG PO QD@2000 Diazepam (Valium), 2.5 MG PO BID Docusate Sodium (Docusate Sodium), 100 MG PO BID Doxepin Hcl (Sinequan), 10 MG PO QD@2000 Ethinyl Estradiol/Levonorgest (Rhona-28), 1 TAB PO DAILY Fexofenadine Hcl (Nasrin), 180 MG PO DAILY Fluticasone Propionate (Nasal) (Flonase Allergy Relief), 2 SPRAYS RAGHAV DAILY Guaifenesin Ext Rel (Mucinex Ext Rel), 1,200 MG PO BID Magnesium Oxide (Mag-Ox), 400 MG PO BID Montelukast Sodium (Singulair), 10 MG PO HS Multiple Vitamin (Multivitamin), 1 TABLET PO DAILY Omeprazole (Prilosec), 20 MG PO DAILY Potassium Chloride (Micro-K Ext Rel), 10 MEQ PO BID Pravastatin Sodium (Pravachol), 20 MG PO HS Sertraline (Zoloft), 25 MG PO DAILY Trazodone Hcl (Trazodone), 100 MG PO UD Scheduled PRN Acetaminophen (Tylenol), 500 MG PO Q4 PRN for Pain or Fever Albuterol Sulf (Proventil 0.083% 2.5MG/3ML), 2.5 MG INH Q2H PRN Aluminum/Magnesium/Simeth (Maalox Max Susp), 30 ML PO Q4H PRN for Indigestion Amoxicillin (Amoxil), 2,000 MG PO UD PRN Bisacodyl (Dulcolax), 1 SUPP IN UD PRN Dermatological Products, Misc. (Liquid Bandage), 1 APPLN TOP for CUTS,SCRAPES Dextromethorphan-Guaifenesin (Robitussin-Dm Syrup), 10 ML PO Q6 PRN for Cough Diphenhydramine Hcl (Benadryl Allergy), 1 TAB PO Q6H PRN for Itching Hydrocortisone (Topical) (Cortizone-10), 1 APPLN TOP TID PRN for RASH Ibuprofen (Ibuprofen), 400 MG PO Q6 PRN for MENSTRUAL CRAMPS Loperamide Hcl (Imodium A-D), 2 MG PO UD PRN for Diarrhea Neomycin/Polymyx/Bacitr (Neosporin), 1 APPL TOP for CUTS,SCRAPES Nystatin-Triamcinolone (Nystatin/Triamcinolon... 733643-1.1 Unit/gm-%), 1 APPLN TD TID PRN for PRN Powders (Vagisil Deodorant), 1 APPL TOP UD PRN for VAGINAL ICTH/REDNESS Miscellaneous Medications Lactobacillus (Floranex) Starch-Maltodextrin (Thickenin (Thick-It Original), PO Review of Systems Unable to obtain due to patient's mental status/intubated/sedated Physical Exam Vital Signs Date Time Temp Pulse Resp B/P (MAP) Pulse Ox O2 Delivery O2 Flow Rate FiO2 02/27/17 13:46 60 Room Air 02/27/17 13:46 60 Room Air 02/27/17 13:46 88 18 110/70 100 Mechanical Ventilator 60 02/27/17 13:40 100 Room Air 60 02/27/17 12:26 100 02/27/17 12:21 87 General Appearance: + pertinent finding (intubated and sedated) Respiratory/Chest: + crackles (diffusely) Cardiovascular: regular rate, rhythm, no edema, no murmur Abdomen/GI: normal bowel sounds, non tender, soft Extremities/Musculoskelatal: normal inspection, normal capillary refill, no pedal edema Neurologic/Psych: + pertinent finding (she is sedated and intubated) Skin: + pertinent finding (cold, cool skin) Diagnostics Laboratory Results Results Past 24 Hours Test 02/27/17 12:35 02/27/17 12:44 02/27/17 12:49 02/27/17 13:22 Range/Units White Blood Count 11.46 4.8-10.8 K/uL Red Blood Count 4.43 4.2-5.4 M/uL Hemoglobin 13.4 12.0-16.0 g/dL Hematocrit 43.0 37-47 % Mean Corpuscular Volume 97.1 80-100 fL Mean Corpuscular Hemoglobin 30.2 25-34 pg Mean Corpuscular Hemoglobin Concent 31.2 32-36 g/dl Platelet Count 250 130-400 K/uL Mean Platelet Volume 10.1 7.4-10.4 fL Neutrophils (%) (Auto) 61.4 % Lymphocytes (%) (Auto) 22.6 % Monocytes (%) (Auto) 13.4 % Eosinophils (%) (Auto) 2.0 % Basophils (%) (Auto) 0.3 % Neutrophils # (Auto) 7.04 1.4-6.5 K/uL Lymphocytes # (Auto) 2.59 1.2-3.4 K/uL Monocytes # (Auto) 1.54 0.11-0.59 K/uL Eosinophils # (Auto) 0.23 0-0.5 K/uL Basophils # (Auto) 0.03 0-0.2 K/uL RDW Standard Deviation 54.8 36.4-46.3 fL RDW Coefficient of Variation 15.6 11.5-14.5 % Immature Granulocyte % (Auto) 0.3 % Immature Granulocyte # (Auto) 0.03 0.00-0.02 K/uL Prothrombin Time 10.2 9.0-12.0 SECONDS Prothromb Time International Ratio 1.0 0.9-1.1 Activated Partial Thromboplast Time 24.5 21.0-31.0 SECONDS Partial Thromboplastin Ratio 0.9 Sodium Level 135 136-145 mmol/L Potassium Level 4.0 3.5-5.1 mmol/L Chloride Level 97 98-107 mmol/L Carbon Dioxide Level 36 21-32 mmol/L Anion Gap 2.0 16.0 16-25 mmol/L Blood Urea Nitrogen 13 7-18 mg/dl Creatinine 1.03 0.60-1.20 mg/dl Estimated GFR () 75.0 Estimated GFR (Non- 64.7 BUN/Creatinine Ratio 12.6 10-20 Random Glucose 89 70-99 mg/dl Calcium Level 8.1 8.5-10.1 mg/dl Total Bilirubin 0.2 0.2-1 mg/dl Aspartate Amino Transf (AST/SGOT) 62 15-37 U/L Alanine Aminotransferase (ALT/SGPT) 52 12-78 U/L Alkaline Phosphatase 101 45-117 U/L Total Creatine Kinase 567 26-192 U/L Creatine Kinase MB 6.3 0.5-3.6 ng/ml Creatine Kinase MB Ratio 1.1 0-3.0 Troponin I 0.088 0-0.045 ng/ml Total Protein 8.3 6.4-8.2 gm/dl Albumin 3.0 3.4-5.0 gm/dl Globulin 5.3 2.5-4.0 gm/dl Albumin/Globulin Ratio 0.6 0.9-2 Bedside Lactic Acid Venous 3.12 0.90-1.70 mmol/L Bedside Hemoglobin 15.0 11.9 12.0-16.0 g/dl Bedside Hematocrit 44 35 37-47 % Bedside Sodium 139 138 135-144 mEq/L Bedside Potassium 4.5 4.5 3.3-5.0 mEq/L Bedside Chloride 95 101-112 mEq/L Bedside Total CO2 34 24-31 mEq/l Bedside Blood Urea Nitrogen 14 7-18 mg/dl Bedside Creatinine 0.9 0.6-1.3 mg/dl Bedside Glucose (other) 99 70-99 mg/dl Bedside Ionized Calcium (Prosper) 1.12 1.12-1.32 mmol/l Bedside Blood Gas pH (LAB) 7.35 7.35-7.45 Bedside Blood Gas pCO2 (LAB) 63 35-46 mmHg Bedside Blood Gas pO2 (LAB) 220 80-95 mmHg Bedside Blood Gas HCO3 (LAB) 35 19-24 meq/L Bedside Blood Gas Total CO2 37 24-31 mEq/l Bedside Blood Gas Base Excess (LAB) 9.0 -9-1.8 meq/L Bedside Blood Gas O2 Saturation 100.0 90-95 % Microbiology Results 02/27/17 Blood Culture, Received Pending 02/27/17 Blood Culture, Received Pending Diagnostic Radiology (CHEST FOR PE) ANGIO WITH CT DOSE: 1070.49 mGy.cm HISTORY: 46 years-old Female presents with acute hypoxia, lethargy and respiratory failure. TECHNIQUE: Multiple CTA images of the chest were obtained after the intravenous administration of 90 ml Optiray 320. Coronal and sagittal MIPS were obtained from the axial data set and were submitted for review. A dose lowering technique was utilized adhering to the principles of ALARA. COMPARISON: Chest radiograph of same day, chest radiograph 07/15/2014, CTA chest 03/17/2009. FINDINGS: CTA: The heart is mildly enlarged. The thoracic aorta is not well opacified secondary to contrast bolus timing. Imaged great vessels appear to be patent. No evidence of aortic dissection or aneurysm. The pulmonary arterial tree is opacified to the level of the proximal portion of the subsegmental branches and demonstrates no focal filling defects to suggest pulmonary thromboembolic disease. Air within the right subclavian vein is likely iatrogenic. CT CHEST: Endotracheal tube is present within the trachea terminating at the level of the stan. Heterogeneous appearance of the thyroid suggests multinodular goiter. Low attenuating right hilar lymph node measures 1.3 x 1.5 cm on image 175 series 6 and appears unchanged from 03/17/2009 study. Chronic low attenuating consolidations with spiculated and irregular margins demonstrating macroscopic fat attenuation are again seen bilaterally with a 5.1 x 4.4 cm consolidation present within the perihilar right lower lobe abutting the fissure, previously measuring approximately 4.7 x 4.5 cm on study dated 03/09/2009. Additional similar-appearing consolidation is present within the left lower lobe, 5.3 x 7.0 cm, previously 5.0 x 8.6 cm. Moderate to severe upper lobe predominant centrilobular emphysema with chronic bilateral reticular opacities suggesting areas of chronic scarring. There are patchy airspace opacities present bilaterally, notably within the left greater than right upper lobes with groundglass and consolidative opacities of the lower lobes suggesting areas of atelectasis and/or pneumonitis. Fatty attenuating spiculated opacity of the right upper lobe measuring 1.2 x 1.8 cm on image 185 series 6 is increase in size from comparison, previously 0.9 x 1.3 cm. Mild bronchial wall thickening of the lung bases. Liver appears mildly enlarged. Soft tissues are unremarkable. Bones appear intact. IMPRESSION: 1. No acute aortic pathology or evidence of pulmonary thromboembolic disease. 2. Multifocal consolidative alveolar opacities of the left greater than right upper lobes and to a lesser extent within the bilateral lower lobes suggests multifocal pneumonia. 3. Large irregular masslike areas of low attenuating consolidation with macroscopic fat attenuation of the perihilar right upper lobe and basal left lower lobe are again noted without significant change from 03/17/2009 study with 1.8 cm low attenuating consolidation of the right upper lobe mildly enlarged from comparison. Differential considerations would include chronic lipoid pneumonia, or pulmonary alveolar proteinosis among other etiologies. These findings could be correlated with bronchoscopy and tissue sampling for definitive diagnosis. 4. Low attenuating right hilar lymph node also noted. EKG Sinus rhythm with short IN T wave abnormality, consider anterior ischemia Prolonged QT Impression Assessment and Plan This is a 46 year old female with a PMH of Angelman's syndrome, mental retardation, hx. of recurrent aspiration pneumonia, hx. of epilepsy presented with acute hypoxic respiratory failure Acute Hypoxic Respiratory Failure Secondary to Aspiration Pneumonia patient with significant respiratory failure and hypoxia on admission O2 sats in the 60s on admission she was then sedated and intubated CXR and CT suggestive of multifocal pneumonia; hx. of aspiration issues was given Cefepime, Levaquin and Vancomycin in the ED as well as solu-medrol EKG suggests QT prolongation, will likely need a combination of Zosyn, Vancomycin, Doxycycline plan is to admit to ICU, steam box hand management appreciated - plan for bronchoscopy Lactic Acidosis will check lactic acid q4 hours IVFs - given 1L bolus DVT ppx Lovenox after bronch FULL CODE Advanced Directives Existing Living Will: Yes Existing Power of Computer Forensics Examiner: Yes VTE Prophylaxis VTE Risk Assessment Done? Y/N: Yes Risk Level: Moderate
[2017-02-27 15:42] LABS: MANUAL MICROSCOPIC REQUIRED? NO; REVIEW REQ? NO; URINE APPEARANCE CLEAR (CLEAR); URINE BILIRUBIN NEG (NEG); URINE COLOR DK YELLOW; URINE NITRITE NEG (NEG); URINE SPECIFIC GRAVITY > 1.045 (1.000-1.030); UROBILINOGEN NEG (NEG); ZZURINE CULT IF INDIC CATH NO
[2017-02-27] MEDS ORDERED: ALUMINUM/MAGNESIUM/SIMETH (MAALOX MAX) 30 ML UDC PO PRN (15:45)
--- NOTE | 2017-02-27 15:55 | Pharmacy Progress Note ---
Pharmacy Glycemic Short Note 2 Date of Service Feb 27, 2017. OUTPATIENT ANTIDIABETIC REGIMEN: * N/A ASSESSMENT: * 46 yr old female admitted for respiratory failure. Patient without a h/o DM, however, she does have multiple risk factors for development of hyperglycemia ( ventilated, methylprednisolone 60 mg IV give in ER, infection, etc.). * The patient will be initiated on SQ basal/bolus regimen. * pending order entered for IV insulin infusion PLAN FOR INPATIENT GLYCEMIC CONTROL: * Basal insulin * Lantus 0-16 units SQ BID * 0 units for BSG < 140 mg/dL * 8 units for BSG 140-180 * 16 units for BSG > 180 * Bolus insulin * NovoLog per scale ACHS or Q6hrs while NPO * Goal Range: Low 120 mg/dL - High 180 mg/dL * Correction Factor: 20 mg/dL/unit * Nutritional / Prandial insulin per carb ratio of 1 unit per 9 grams CHO consumed * Pending order * Initiate IV insulin infusion if BSG is > 250 mg/dL * moderate stress protocol, goal range 120-180 mg/dL Thank you.
[2017-02-27] MEDS ORDERED: MIDAZOLAM 125MG/250ML D5W 250 ML IV SCH (16:06)
[2017-02-27] MEDS ORDERED: MIDAZOLAM 125MG/250ML D5W IV ONE (16:07)
[2017-02-27] MEDS ORDERED: OSELTAMIVIR PHOSPHATE SUSP 75 MG/12.5 ML UDP PO ONE (16:15)
[2017-02-27] MEDS ORDERED: VANCOMYCIN INJ 1,250 MG in SODIUM CHLORIDE 0.9% 250ML 250 ML IV ONE (16:30)
[2017-02-27] MEDS ORDERED: ENOXAPARIN 40 MG/0.4 ML SYR SQ ONE (16:45)
[2017-02-27] MEDS: FENTANYL CITRATE INJ 50 MCG/1 ML 2 ML VIAL IV SCH ×5 (16:56→23:00)
[2017-02-27] MEDS: PROPOFOL IV EMULSION 10 MG/ML 100 ML VIAL IV PRN (16:56)
[2017-02-27] MEDS: METHYLPREDNISOLONE IV 40 MG in SYRINGE 0 ML IV SCH (16:57)
[2017-02-27] MEDS: NORMOSOL R 1,000 ML IV SCH (16:57)
[2017-02-27] MEDS ORDERED: HYDROCORTISONE 1% CR 30 GM TUBE EXT PRN (17:00)
[2017-02-27] MEDS: INSULIN ASPART 100 UNITS/ML 3 ML PEN SC SCH (18:00)
[2017-02-27 19:20] LABS: INFLUENZA A PCR Neg for Influ A (NEG); INFLUENZA B PCR Neg for Influ B (NEG)
--- NOTE | 2017-02-27 19:25 | Pharmacy Progress Note ---
Pharmacy Antibiotic Consult Date of Service: Feb 27, 2017. Pharmacy Dosing Scope Pharmacy is consulted to initiate vancomycin IV dosing therapy, order appropriate labs and adjust drug dose/frequency. Subjective The patient is a 46 year old female admitted on Feb 27, 2017 at 13:23. Objective Height (Feet): 5 Height (Inches): 4.00 Weight (Kilograms): 91.600 Lab Results (24hrs): Test 02/27/17 12:35 02/27/17 12:44 02/27/17 12:49 02/27/17 13:22 White Blood Count 11.46 K/uL (4.8-10.8) Red Blood Count 4.43 M/uL (4.2-5.4) Hemoglobin 13.4 g/dL (12.0-16.0) Hematocrit 43.0 % (37-47) Mean Corpuscular Volume 97.1 fL (80-100) Mean Corpuscular Hemoglobin 30.2 pg (25-34) Mean Corpuscular Hemoglobin Concent 31.2 g/dl (32-36) Platelet Count 250 K/uL (130-400) Mean Platelet Volume 10.1 fL (7.4-10.4) Neutrophils (%) (Auto) 61.4 % Lymphocytes (%) (Auto) 22.6 % Monocytes (%) (Auto) 13.4 % Eosinophils (%) (Auto) 2.0 % Basophils (%) (Auto) 0.3 % Neutrophils # (Auto) 7.04 K/uL (1.4-6.5) Lymphocytes # (Auto) 2.59 K/uL (1.2-3.4) Monocytes # (Auto) 1.54 K/uL (0.11-0.59) Eosinophils # (Auto) 0.23 K/uL (0-0.5) Basophils # (Auto) 0.03 K/uL (0-0.2) RDW Standard Deviation 54.8 fL (36.4-46.3) RDW Coefficient of Variation 15.6 % (11.5-14.5) Immature Granulocyte % (Auto) 0.3 % Immature Granulocyte # (Auto) 0.03 K/uL (0.00-0.02) Prothrombin Time 10.2 SECONDS (9.0-12.0) Prothromb Time International Ratio 1.0 (0.9-1.1) Activated Partial Thromboplast Time 24.5 SECONDS (21.0-31.0) Partial Thromboplastin Ratio 0.9 Sodium Level 135 mmol/L (136-145) Potassium Level 4.0 mmol/L (3.5-5.1) Chloride Level 97 mmol/L (98-107) Carbon Dioxide Level 36 mmol/L (21-32) Anion Gap 2.0 mmol/L (3-11) 16.0 mmol/L (16-25) Blood Urea Nitrogen 13 mg/dl (7-18) Creatinine 1.03 mg/dl (0.60-1.20) Estimated GFR () 75.0 Estimated GFR (Non- 64.7 BUN/Creatinine Ratio 12.6 (10-20) Random Glucose 89 mg/dl (70-99) Calcium Level 8.1 mg/dl (8.5-10.1) Total Bilirubin 0.2 mg/dl (0.2-1) Aspartate Amino Transf (AST/SGOT) 62 U/L (15-37) Alanine Aminotransferase (ALT/SGPT) 52 U/L (12-78) Alkaline Phosphatase 101 U/L (45-117) Total Creatine Kinase 567 U/L (26-192) Creatine Kinase MB 6.3 ng/ml (0.5-3.6) Creatine Kinase MB Ratio 1.1 (0-3.0) Troponin I 0.088 ng/ml (0-0.045) Total Protein 8.3 gm/dl (6.4-8.2) Albumin 3.0 gm/dl (3.4-5.0) Globulin 5.3 gm/dl (2.5-4.0) Albumin/Globulin Ratio 0.6 (0.9-2) Bedside Lactic Acid Venous 3.12 mmol/L (0.90-1.70) Bedside Hemoglobin 15.0 g/dl (12.0-16.0) 11.9 g/dl (12.0-16.0) Bedside Hematocrit 44 % (37-47) 35 % (37-47) Bedside Sodium 139 mEq/L (135-144) 138 mEq/L (135-144) Bedside Potassium 4.5 mEq/L (3.3-5.0) 4.5 mEq/L (3.3-5.0) Bedside Chloride 95 mEq/L (101-112) Bedside Total CO2 34 mEq/l (24-31) Bedside Blood Urea Nitrogen 14 mg/dl (7-18) Bedside Creatinine 0.9 mg/dl (0.6-1.3) Bedside Glucose (other) 99 mg/dl (70-99) Bedside Ionized Calcium (Prosper) 1.12 mmol/l (1.12-1.32) Bedside Blood Gas pH (LAB) 7.35 (7.35-7.45) Bedside Blood Gas pCO2 (LAB) 63 mmHg (35-46) Bedside Blood Gas pO2 (LAB) 220 mmHg (80-95) Bedside Blood Gas HCO3 (LAB) 35 meq/L (19-24) Bedside Blood Gas Total CO2 37 mEq/l (24-31) Bedside Blood Gas Base Excess (LAB) 9.0 meq/L (-9-1.8) Bedside Blood Gas O2 Saturation 100.0 % (90-95) Test 02/27/17 14:15 02/27/17 17:15 02/27/17 18:00 02/27/17 18:26 Urine Color DK YELLOW Urine Appearance CLEAR (CLEAR) Urine pH 7.0 (4.5-7.5) Urine Specific [place] > 1.045 (1.000-1.030) Urine Protein 2+ (NEG) Urine Glucose (UA) NEG (NEG) Urine Ketones TRACE (NEG) Urine Occult Blood NEG (NEG) Urine Nitrite NEG (NEG) Urine Bilirubin NEG (NEG) Urine Urobilinogen NEG (NEG) Urine Leukocyte Esterase NEG (NEG) Urine WBC (Auto) 0 /hpf (0-5) Urine RBC (Auto) 0-4 /hpf (0-4) Urine Hyaline Casts (Auto) 1-5 /lpf (0-5) Urine Epithelial Cells (Auto) 5-10 /lpf (0-5) Urine Bacteria (Auto) NEG (NEG) Bedside Glucose 98 mg/dl (70-90) Troponin I 0.048 ng/ml (0-0.045) Micro Results: Date/Time Source Procedure Growth Status 02/27/17 13:57 Blood Blood Culture Pending Received 02/27/17 13:48 Blood Blood Culture Pending Received 02/27/17 15:50 Nasal MRSA DNA Surveillance Screen - Final Specimen Negative for MRSA by DNA Probe Complete 02/27/17 16:40 Bronchial Washings Right Lower Lobe Fungal Smear Pending Received 02/27/17 16:40 Bronchial Washings Right Lower Lobe Fungal Culture Pending Received 02/27/17 16:40 Bronchial Washings Right Lower Lobe Acid Fast Stain Pending Received 02/27/17 16:40 Bronchial Washings Right Lower Lobe Mycobacterial Culture Pending Received 02/27/17 16:40 Bronchial Washings Right Lobe Gram Stain Pending Received 02/27/17 16:40 Bronchial Washings Right Lobe Bronchoalveolar Lavage Culture Pending Received 02/27/17 16:40 Bronchial Washings Left Lingula Fungal Smear Pending Received 02/27/17 16:40 Bronchial Washings Left Lingula Fungal Culture Pending Received 02/27/17 16:40 Bronchial Washings Left Lingula Acid Fast Stain Pending Received 02/27/17 16:40 Bronchial Washings Left Lingula Mycobacterial Culture Pending Received 02/27/17 16:40 Bronchial Washings Left Lingula Gram Stain Pending Received 02/27/17 16:40 Bronchial Washings Left Lingula Bronchoalveolar Lavage Culture Pending Received Recent Pertinent Medications Received LVQ 750 mg iv x 1 Assessment & Plan Assessment: 46 yo female with hx of Angelman's syndrome, mental retardation, hx of recurrent aspiration pneumonia 02 sats in ED 60s-70s- intubated CXR&CT suggestive of multifocal pneumonia WBC 11.46, Afebrile Plan: Loading dose: Received 1000 mg (10.9 mg/kg) IV X 1 in ED, sent 1250 mg (13.6 mg/kg) x1 to complete load: Maintenance dose 1250 mg IV every 12 hours. Population based PK: SCr 1.03, CrCl (adjusted) 74.1, ke 0,065, T1/2 ~ 10.5 hrs Goal trough level estimate: between 15-20 mcg/mL. Trough level ordered for 03/01 @ 0530. Cefepime 2 gm q8H, Doxycycline 100 mg BID also ordered. Pharmacy will continue to follow and will adjust dose/frequency as necessary. Thank you
[2017-02-27] MEDS ORDERED: VANCOMYCIN CONSULT ACTIVE PRN (19:30)
[2017-02-27] MEDS: CEFEPIME IV 2,000 MG in SYRINGE 7.5 ML IV SCH (20:58)
[2017-02-27] MEDS: DOXYCYCLINE IV 100 MG in DEXTROSE 5% 100ML 100 ML IV SCH (20:59)
[2017-02-27] MEDS: DOXEPIN HCL 10 MG CAP PO SCH (21:00)
[2017-02-27] MEDS ORDERED: OSELTAMIVIR PHOSPHATE SUSP 75 MG/12.5 ML UDP PO SCH (21:00)
[2017-02-27] MEDS: INSULIN GLARGINE SOLOSTAR 100 UNITS/ML 3 ML PEN SC SCH (21:00)
[2017-02-27] MEDS: PRAVASTATIN SOD 20 MG TAB PO SCH (21:00)
[2017-02-27] MEDS ORDERED: CEFEPIME IV 2,000 MG in DEXTROSE 5% 100ML 100 ML IV SCH (21:00)
[2017-02-27] MEDS: CLONAZEPAM 0.5 MG TAB PO SCH (21:02)
[2017-02-28] VITALS (14 sets, daily range): BP systolic 103–128; BP diastolic 58–73; PULSE 56–76; TEMP 36.5–37.2; O2SAT 89–98
[2017-02-28] MEDS: METHYLPREDNISOLONE IV 40 MG in SYRINGE 0 ML IV SCH ×4 (00:16→20:40)
[2017-02-28] MEDS: PROPOFOL IV EMULSION 10 MG/ML 100 ML VIAL IV PRN ×5 (00:25→22:44)
[2017-02-28] MEDS: NORMOSOL R 1,000 ML IV SCH ×3 (04:15→22:45)
[2017-02-28] MEDS: INSULIN ASPART 100 UNITS/ML 3 ML PEN SC SCH ×4 (06:00→18:00)
[2017-02-28] MEDS ORDERED: VANCOMYCIN INJ 1,250 MG in SODIUM CHLORIDE 0.9% 250ML 250 ML IV SCH ×2 (06:00→22:00)
[2017-02-28] MEDS: CEFEPIME IV 2,000 MG in SYRINGE 7.5 ML IV SCH ×3 (06:18→22:43)
[2017-02-28 06:30] LABS: HEMATOCRIT 35.8 % (37-47); MEAN CELL VOLUME 92.5 fL (80-100); MEAN CORPUSCULAR HEMOGLOBIN 29.5 pg (25-34); MEAN CORPUSCULAR HGB CONC 31.8 g/dl (32-36); PLATELET COUNT 217 K/uL (130-400); RED BLOOD COUNT 3.87 M/uL (4.2-5.4); WHITE BLOOD COUNT 7.13 K/uL (4.8-10.8)
[2017-02-28 06:36] LABS: VEN BLD GAS O2 SATURATION 77.1 %; VEN BLOOD GAS BASE EXCESS 3.5 mEq/L
--- NOTE | 2017-02-28 06:54 | DIAGNOSTIC IMAGING REPORT ---
CHEST ONE VIEW PORTABLE CLINICAL HISTORY: Intubated tube position COMPARISON STUDY: 02/27/2017 FINDINGS: Endotracheal tube has been pulled back. It is now 2 cm below the stan. Consolidative change of the right middle lobe is similar. Improved aeration throughout the left hemithorax. Persistent elevation left hemidiaphragm versus unchanging consolidative change left lung base. Mild stable cardiomegaly. IMPRESSION: 1. Endotracheal tube 2 cm above the stan. 2. Improved aeration left hemithorax with unchanging consolidative change left base. 3. Unchanging consolidative change right perihilar region most likely representing right middle lobe volume loss. The above report was generated using voice recognition software. It may contain grammatical, syntax or spelling errors. Electronically signed by: Sharif Rodgers M.D. 02/28/2017 6:52 AM Dictated Date/Time: 02/28/2017 6:49 AM
[2017-02-28 07:03] LABS: BUN/CREATININE RATIO 14.5 (10-20); CALCIUM 7.2 mg/dl (8.5-10.1); CREATININE 0.87 mg/dl (0.60-1.20); MAGNESIUM 2.5 mg/dl (1.8-2.4); POTASSIUM 4.4 mmol/L (3.5-5.1)
[2017-02-28 07:04] LABS: PHOSPHORUS 2.9 mg/dl (2.5-4.9)
[2017-02-28 07:42] LABS: ESTIMATED AVERAGE GLUCOSE 117 mg/dl; HA1C FLAG Normal (Normal)
[2017-02-28] MEDS: INSULIN GLARGINE SOLOSTAR 100 UNITS/ML 3 ML PEN SC SCH ×2 (07:48→20:19)
[2017-02-28] MEDS: DOXYCYCLINE IV 100 MG in DEXTROSE 5% 100ML 100 ML IV SCH (07:49)
[2017-02-28] MEDS: SERTRALINE HCL 50 MG TAB PO SCH (07:50)
[2017-02-28] MEDS: CLONAZEPAM 0.5 MG TAB PO SCH ×3 (07:53→20:40)
[2017-02-28] MEDS: DIAZEPAM 5MG TAB PO SCH ×2 (07:54→16:45)
[2017-02-28] MEDS ORDERED: PERFLUTREN LIPID MICROSPHERE (DEFINITY) IV ONE (08:42)
[2017-02-28] MEDS ORDERED: ENOXAPARIN 40 MG/0.4 ML SYR SQ SCH (09:00)
[2017-02-28] MEDS ORDERED: PANTOprazole SOD 40 MG TAB PO SCH (09:00)
[2017-02-28] MEDS ORDERED: CONSULT PHARMACY SCH (09:45)
[2017-02-28] MEDS ORDERED: NURSING VERBAL MED ORDER ONE (09:45)
[2017-02-28] MEDS ORDERED: VANCOMYCIN INJ 1,500 MG in SODIUM CHLORIDE 0.9% 500ML 500 ML IV ONE (10:15)
--- NOTE | 2017-02-28 10:19 | Pharmacy Progress Note ---
Pharmacy Abx Dose Short Note Date of Service Feb 28, 2017. Assessment & Plan Assessment 46 year old female receiving vancomycin/cefepime for treatment of pneumonia initially, now with gram positive cocci in the blood a total of 2250mg of vancomycin was given yesterday afternoon, until the vancomycin was discontinued overnight and was continued on doxycycline and cefepime. Given the gram positive cocci in the blood, doxycycline was stopped and vancomycin was restarted. Plan Vancomycin * One time dose of 1500mg X1 now (slightly larger dose to account for discontinuation overnight) * Followed by dose of 1250 mg IV every 12 hours starting @ 2200 tonight * Trough or random level ordered for: 03/01/17 @0930 to assess where level is given all of these changes in dosing and schedule Pharmacy will continue to follow and will adjust dose/frequency as necessary. Thank you.
[2017-02-28] MEDS: PANTOprazole INJ 40 MG in SYRINGE 0 ML IV SCH (10:53)
--- NOTE | 2017-02-28 13:04 | Pharmacy Progress Note ---
Glycemic: Assessment & Plan Date of Service Feb 28, 2017. Assessment & Plan The patient is currently receiving 0 units of insulin per day. BSGs ranging 89 - 116 mg/dl over the past 24hrs. ASSESSMENT: * 46 yr old female admitted for respiratory failure. Patient without a h/o DM, however, she does have multiple risk factors for development of hyperglycemia ( ventilated, methylprednisolone 40 mg IV q 6, infection, etc.). Patient thus far with good BS despite steroids. Will continue with current lantus scale. * The patient will be initiated on SQ basal/bolus regimen. * pending order entered for IV insulin infusion PLAN FOR INPATIENT GLYCEMIC CONTROL: * Basal insulin * Lantus 0-16 units SQ BID * 0 units for BSG < 140 mg/dL * 8 units for BSG 140-180 * 16 units for BSG > 180 * Bolus insulin * NovoLog per scale ACHS or Q6hrs while NPO * Goal Range: Low 120 mg/dL - High 180 mg/dL * Correction Factor: 20 mg/dL/unit * Nutritional / Prandial insulin per carb ratio of 1 unit per 9 grams CHO consumed * Pending order * Initiate IV insulin infusion if BSG is > 250 mg/dL * moderate stress protocol, goal range 120-180 mg/dL BSGs adequate, no changes needed to inpatient regimen at this time. Pharmacy will continue to monitor patient daily and write orders per [facility] inpatient glycemic control protocol. Thanks. * Please note that the plan above was derived based on current level of insulin resistance and hospital stress. These recommendations are appropriate for inpatient admission only. Plan of care upon discharge will need to be reassessed to avoid potential outpatient hypo/hyperglycemia.
--- NOTE | 2017-02-28 13:20 | ECHOCARDIOGRAM REPORT ---
*NOTICE TO RECEIVING [employer] This information is strictly Confidential and protected under [place] law. [place] law prohibits you from making any further disclosure of this information unless further disclosure is expressly permitted by the written consent of the person to whom it pertains or is authorized by law. A general authorization for the release of medical or other information is not sufficient for this purpose. Hospital accepts no responsibility if the information is made available to any other person, INCLUDING THE PATIENT. Interpretation Summary * Name: SLY CHANCE Study Date: 02/28/2017 07:44 AM BP: 116/69 mmHg * Patient Location: .MSICU\S\E103\S\1 HR: 61 * : 1970 (M/d/yyyy) Gender: Female Height: 64 in * Age: 46 yrs Ethnicity: [place] Weight: 201 lb * Ordering Physician: Anders Brock * Referring Physician: Self, Referred * Performed By: Dinorah Ruff RDCS * * Reason For Study: Pulmonary hypertension * BSA: 2.0 m2 * -- Conclusions -- * The left ventricle is normal in size. * There is normal left ventricular wall thickness. * No regional wall motion abnormalities noted. * Ejection Fraction = 55-60%. * The right ventricle is normal in size and function. * There is trace tricuspid regurgitation. * Doppler findings do not suggest pulmonary hypertension. * The inferior vena cava is mildly dilated. Procedure Details * A complete two-dimensional transthoracic echocardiogram was performed (2D, M-mode, Doppler and color flow Doppler). * A contrast injection of Definity was performed to improve assessment of LV function. * Contrast was injected into an intravenous site in the right arm. * One vial of Definity ultrasound contrast was diluted in normal saline to a total volume of 10 ml. A total of '2' ml of solution was administered during imaging. * Lot # [id number] of Definity utilized for procedure. * Expiration date 1 May 09. * The attending nurse who injected the contrast agent was Qian Evangelista RN. * The study was technically limited. * The study was technically difficult. Left Ventricle * The left ventricle is normal in size. * There is normal left ventricular wall thickness. * Ejection Fraction = 55-60%. * Left ventricular systolic function is normal. * No regional wall motion abnormalities noted. Right Ventricle * The right ventricle is normal in size and function. Atria * The left atrial size is normal. * Right atrial size is normal. * No ASD detected; PFO is not assessed. Mitral Valve * The mitral valve is normal. * There is no mitral valve stenosis. * There is trace mitral regurgitation. Tricuspid Valve * The tricuspid valve is not well visualized, but is grossly normal. * There is no tricuspid stenosis. * There is trace tricuspid regurgitation. * Doppler findings do not suggest pulmonary hypertension. Aortic Valve * The aortic valve is trileaflet. * No hemodynamically significant valvular aortic stenosis. * No aortic regurgitation is present. Pulmonic Valve * The pulmonic valve is not well visualized. Great Vessels * The aortic root is normal size. Pericardium/Pleural * There is no pericardial effusion. Great Vessels * The inferior vena cava is mildly dilated. MMode 2D Measurements and Calculations IVSd 0.83 cm LVIDd 3.2 cm LVIDs 2.2 cm LVPWd 1.0 cm IVS/LVPW 0.82 FS 30.6 % EDV(Teich) 40.7 ml ESV(Teich) 16.5 ml EF(Teich) 59.5 % EDV(cubed) 32.5 ml ESV(cubed) 10.9 ml EF(cubed) 66.6 % LV mass(C)d 79.8 grams LV mass(C)dI 40.7 grams/m\S\2 SV(Teich) 24.2 ml SI(Teich) 12.3 ml/m\S\2 SV(cubed) 21.6 ml SI(cubed) 11.0 ml/m\S\2 ACS 1.6 cm LA dimension 2.3 cm asc Aorta Diam 2.5 cm LVAd ap4 17.4 cm\S\2 LVLd ap4 6.0 cm EDV(MOD-sp4) 42.6 ml EDV(sp4-el) 42.4 ml LVAs ap4 10.2 cm\S\2 LVLs ap4 5.3 cm ESV(MOD-sp4) 16.7 ml ESV(sp4-el) 16.4 ml EF(MOD-sp4) 60.8 % EF(sp4-el) 61.4 % LVAd ap2 32.2 cm\S\2 LVLd ap2 8.2 cm EDV(MOD-sp2) 109.2 ml EDV(sp2-el) 107.1 ml LVAs ap2 16.3 cm\S\2 LVLs ap2 5.4 cm ESV(MOD-sp2) 41.2 ml ESV(sp2-el) 41.9 ml EF(MOD-sp2) 62.2 % EF(sp2-el) 60.9 % LVLd %diff 26.7 % EDV(MOD-bp) 77.7 ml LVLs %diff 1.2 % ESV(MOD-bp) 26.2 ml EF(MOD-bp) 66.3 % SV(MOD-sp4) 25.9 ml SI(MOD-sp4) 13.2 ml/m\S\2 SV(MOD-sp2) 68.0 ml SI(MOD-sp2) 34.7 ml/m\S\2 SV(MOD-bp) 51.5 ml SI(MOD-bp) 26.3 ml/m\S\2 SV(sp4-el) 26.0 ml SI(sp4-el) 13.3 ml/m\S\2 SV(sp2-el) 65.2 ml SI(sp2-el) 33.3 ml/m\S\2 Doppler Measurements and Calculations MV E max melissa 75.7 cm/sec MV A max melissa 78.6 cm/sec MV E/A 0.96 MV dec time 0.22 sec Ao V2 max 140.7 cm/sec Ao max PG 7.9 mmHg Ao max PG (full) 3.2 mmHg LV V1 max PG 4.7 mmHg LV V1 max 108.2 cm/sec PA V2 max 99.1 cm/sec PA max PG 3.9 mmHg PA acc slope 626.6 cm/sec\S\2 PA acc time 0.11 sec TR max melissa 254.7 cm/sec PA pr(Accel) 29.9 mmHg
[2017-02-28] MEDS ORDERED: VANCOMYCIN CONSULT ACTIVE PRN (17:30)
--- NOTE | 2017-02-28 17:59 | Critical Care Progress Note ---
Critical Care Progress Note Date of Service Feb 28, 2017. Attending Dr. Vegas Subjective ROS is not obtainable, MR and intubated. Objective VSS, S1S2 RRR, lungs with diminished BS, abdomen is benign. CCE. neuro awake but does not follow commands. BL. Current SOFA Score SOFA Score Response (Comments) Value PaO2/FiO2 (mmHg) < 400 1 SaO2 / FIO2 221 - 301 1 Platelets (x10) > 150 0 Bilirubin (mg/dL) < 1.2 0 Maye Coma Score 15 0 Level of Hypotension No Hypotension 0 Creatinine (mg/dL) < 1.2 0 Total 2 Assessment & Plan 1- acute resp failure due to RUL and BAN pneumonia, etiology UK, also with right hilar mass, per radiology the pt had LN on the chest ct from 2008, I could not browse it in our EMR. 2- MR which makes it difficult to obtain a ROS. 3- right hilar mass, reviewed the chest ct with the mother and the sister at the bed side, both agreed to obtain a tissue diagnosis. 4- will stop lovenox, unclear to me whether the pt had hx of DVT although mentioned, did not see records of it. Plan: 1- continue current vent setting. 2- SBT. 3- sedation. 4- no TF overnight. 5- IVF. 6- stop Lovenox. 7- bronch with biopsy +/- ebus in am. the mother agreed to the procedure. 8- continue Abx. 9- the chest ct showed COPD changed, ? etiology the pt never a smoker and lived [place] with no exposure to second hand as well. 10- discussed with the staff on rounds in details. CCT 45 min. Consults & Procedures Consultants: none Procedures: bronch in am. Data Medications: Current Inpatient Medications Medications (Trade) Dose Ordered Sig/Kiera Route Start Time Stop Time Status Last Admin Dose Admin Ioversol (Optiray 320) 125 ml UD PRN IV 02/27/17 12:45 03/03/17 12:44 Miscellaneous Information ( Icu Electrolyte Replacement Protocol) 1 ea per protocol PRN N/A 02/27/17 13:15 03/06/17 13:14 Levalbuterol (Xopenex 1.25MG/ 0.5ML Neb) 1.25 mg Q4 PRN INH 02/27/17 13:15 03/29/17 13:14 Ipratropium [place] (Atrovent 0.02% 0.5MG/2.5ML Neb) 0.5 mg Q4H PRN INH 02/27/17 13:15 03/29/17 13:14 Insulin Aspart (novoLOG ASPART) SLIDING SCALE If C... Q6 SC 02/27/17 18:00 03/29/17 17:59 Glucose (Glucose 40% Gel) 15-30 GRAMS 15 GRAMS... UD PRN PO 02/27/17 13:15 03/29/17 13:14 Glucose (Glucose Chew Tab) 4-8 Tablets 4 Tabl... UD PRN PO 02/27/17 13:15 03/29/17 13:14 Dextrose (Dextrose 50% 50ML Syringe) 25-50ML OF 50% DW IV FOR... UD PRN IV 02/27/17 13:15 03/29/17 13:14 Glucagon (Glucagon Inj) 1 mg UD PRN SQ 02/27/17 13:15 03/29/17 13:14 Miscellaneous Information (Consult Glycemic Management Pharmacy) 1 ea UD PRN N/A 02/27/17 14:19 03/29/17 14:18 Propofol (Diprivan Iv Emulsion 100ml Vial) 1 dose UD PRN IV 02/27/17 13:10 03/02/17 13:09 02/28/17 12:26 1 DOSE Insulin Glargine (Lantus Solostar Pen) SEE PROTOCOL TEXT ... BID SC 02/27/17 21:00 03/29/17 20:59 Al Hydrox/Mg Hydrox/Simethicone (Maalox Max Susp) 30 ml Q4H PRN PO 02/27/17 15:45 03/29/17 15:44 Clonazepam (Klonopin Tab) 0.5 mg TID PO 02/27/17 21:00 03/29/17 20:59 02/28/17 14:10 0.5 MG Diazepam (Valium Tab) 2.5 mg BID@0800,1600 PO 02/28/17 08:00 03/30/17 07:59 02/28/17 16:45 2.5 MG Doxepin HCl (Sinequan Cap) 10 mg QD@2000 PO 02/27/17 20:00 03/29/17 19:59 02/27/17 21:00 10 MG Hydrocortisone (Hydrocortisone 1% Crm) 1 appln TID PRN EXT 02/27/17 17:00 03/29/17 16:59 Pravastatin Sodium (Pravachol Tab) 20 mg HS PO 02/27/17 21:00 03/29/17 20:59 02/27/17 21:00 20 MG Sertraline HCl (Zoloft Tab) 25 mg DAILY PO 02/28/17 09:00 03/30/17 08:59 02/28/17 07:50 25 MG Parenteral Electrolyte Solution 1,000 ml @ 100 mls/hr Q10H IV 02/27/17 16:30 03/29/17 16:29 02/28/17 12:27 100 MLS/HR Pantoprazole Sodium 40 mg/ Syringe 10 ml @ 5 mls/min DAILY@11 IV 02/28/17 11:00 03/30/17 10:59 02/28/17 10:53 5 MLS/MIN Cefepime HCl 2000 mg/Syringe 20 ml @ 5 mls/min Q8H IV 02/27/17 22:00 03/06/17 21:59 02/28/17 14:09 5 MLS/MIN Heparin Sodium (Porcine) (Heparin 10 Unit/ ml 5 ml Flush) 5 ml PRN PRN FLUSH 02/27/17 18:45 03/29/17 18:44 Fentanyl Citrate (Fentanyl Inj) 100 mcg Q2H PRN IV 02/28/17 01:00 03/13/17 14:59 Methylprednisolone Sodium Succinate 40 mg/Syringe 0.64 ml @ 1.5 mls/min Q6H IV 02/28/17 14:00 03/30/17 13:59 02/28/17 14:10 1.5 MLS/MIN Vancomycin HCl 1250 mg/Sodium Chloride 275 ml @ 125 mls/hr Q12H IV 02/28/17 22:00 03/14/17 21:59 Vancomycin HCl (Consult) 1 ea UD PRN N/A 02/28/17 17:30 03/30/17 17:29 I & O: 24-Hour Column 03/01/17 08:00 Intake Total 1734 ml Output Total 950 ml Balance 784 ml Vital Signs: Date Time Temp Pulse Resp B/P (MAP) Pulse Ox O2 Delivery O2 Flow Rate FiO2 02/28/17 16:00 40 02/28/17 16:00 Mechanical Ventilator 40 02/28/17 16:00 37.2 73 18 126/69 (88) 93 Mechanical Ventilator 40 02/28/17 14:25 40 02/28/17 14:00 72 18 120/63 (82) 94 Mechanical Ventilator 40 02/28/17 12:00 Mechanical Ventilator 40 02/28/17 12:00 40 02/28/17 12:00 36.9 66 18 108/58 (75) 92 Mechanical Ventilator 40 02/28/17 11:28 40 02/28/17 10:00 65 18 103/63 (76) 89 Mechanical Ventilator 40 02/28/17 08:00 36.7 61 18 116/69 (85) 95 Mechanical Ventilator 40 02/28/17 08:00 Mechanical Ventilator 40 02/28/17 08:00 40 02/28/17 08:00 Mechanical Ventilator 40 02/28/17 07:10 30 02/28/17 06:00 62 18 119/73 (88) 92 Mechanical Ventilator 30 02/28/17 05:05 30 02/28/17 04:00 36.5 64 18 109/69 (82) 96 Mechanical Ventilator 30 02/28/17 04:00 30 02/28/17 04:00 92 Mechanical Ventilator 30 02/28/17 02:05 50 02/28/17 02:00 58 18 108/73 (85) 97 Mechanical Ventilator 50 02/28/17 00:01 36.5 56 18 107/67 (80) 98 Mechanical Ventilator 50 02/27/17 23:59 50 02/27/17 23:59 98 Mechanical Ventilator 50 02/27/17 23:02 60 02/27/17 22:00 58 18 92/63 (73) 99 Mechanical Ventilator 60 02/27/17 20:04 100 02/27/17 20:00 70 02/27/17 20:00 100 Mechanical Ventilator 70 02/27/17 20:00 36.3 57 18 103/79 (87) 100 Mechanical Ventilator 70 Laboratory Results: Last 24 Hours Test 02/27/17 18:00 02/27/17 18:26 02/27/17 20:18 02/27/17 21:27 Influenza Type A (RT-PCR) Neg for Influ A Influenza Type B (RT-PCR) Neg for Influ B Troponin I 0.048 ng/ml Lactic Acid Level 1.8 mmol/L Bedside Glucose 111 mg/dl Test 02/27/17 23:48 02/28/17 00:19 02/28/17 01:53 02/28/17 06:14 Lactic Acid Level 2.2 mmol/L Bedside Glucose 125 mg/dl Troponin I 0.026 ng/ml White Blood Count 7.13 K/uL Red Blood Count 3.87 M/uL Hemoglobin 11.4 g/dL Hematocrit 35.8 % Mean Corpuscular Volume 92.5 fL Mean Corpuscular Hemoglobin 29.5 pg Mean Corpuscular Hemoglobin Concent 31.8 g/dl RDW Standard Deviation 52.0 fL RDW Coefficient of Variation 15.4 % Platelet Count 217 K/uL Mean Platelet Volume 10.0 fL Venous Blood pH 7.41 Venous Blood Partial Pressure CO2 47 mmHg Venous Blood Partial Pressure O2 44 mmHg Venous Blood HCO3 29 mmol/L Venous Blood Oxygen Saturation 77.1 % Venous Blood Base Excess 3.5 mEq/L Sodium Level 137 mmol/L Potassium Level 4.4 mmol/L Chloride Level 101 mmol/L Carbon Dioxide Level 29 mmol/L Anion Gap 7.0 mmol/L Blood Urea Nitrogen 13 mg/dl Creatinine 0.87 mg/dl Est Creatinine Clear Calc Drug Dose 87.0 ml/min Estimated GFR () 91.9 Estimated GFR (Non- 79.3 BUN/Creatinine Ratio 14.5 Random Glucose 115 mg/dl Estimated Average Glucose 117 mg/dl Hemoglobin A1c 5.7 % Calcium Level 7.2 mg/dl Phosphorus Level 2.9 mg/dl Magnesium Level 2.5 mg/dl Test 02/28/17 06:17 Bedside Glucose 109 mg/dl
--- NOTE | 2017-02-28 19:04 | Progress Note ---
Medicine Progress Note Date & Time of Visit: Feb 28, 2017 at 18:48. Subjective Patient seen and examined earlier this AM during ICU rounds. No overnight events noted. Patient is sedated and on the vent. No family was seen at the bedside. Objective Last 8 Hrs Date Time Temp Pulse Resp B/P (MAP) Pulse Ox O2 Delivery O2 Flow Rate FiO2 02/28/17 18:21 40 02/28/17 18:00 72 18 128/66 (86) 94 Mechanical Ventilator 40 02/28/17 16:00 40 02/28/17 16:00 Mechanical Ventilator 40 02/28/17 16:00 37.2 73 18 126/69 (88) 93 Mechanical Ventilator 40 02/28/17 14:25 40 02/28/17 14:00 72 18 120/63 (82) 94 Mechanical Ventilator 40 02/28/17 12:00 Mechanical Ventilator 40 02/28/17 12:00 40 02/28/17 12:00 36.9 66 18 108/58 (75) 92 Mechanical Ventilator 40 02/28/17 11:28 40 Physical Exam: GENERAL: Patient is in no acute distress. HEENT: No acute trauma, normocephalic, mucous membranes moist, no nasal congestion, no scleral icterus. NECK: No stridor, trachea is midline. LUNGS: Clear to auscultation bilaterally, no wheeze, no rhonchi, breath sounds equal. HEART: Without murmurs gallops or rubs, regular rate and rhythm. ABDOMEN: Soft, nontender, bowel sounds positive EXTREMITIES: No cyanosis or edema, occasional movement of extremities noted; midline in RUE NEUROLOGIC: Sedated, grimace to voice or movement but not following commands SKIN: No rash, no jaundice, no diaphoresis. Laboratory Results: Last 24 Hours Test 02/27/17 20:18 02/27/17 21:27 02/27/17 23:48 02/28/17 00:19 Lactic Acid Level 1.8 mmol/L 2.2 mmol/L Bedside Glucose 111 mg/dl 125 mg/dl Test 02/28/17 01:53 02/28/17 06:14 02/28/17 06:17 Troponin I 0.026 ng/ml White Blood Count 7.13 K/uL Red Blood Count 3.87 M/uL Hemoglobin 11.4 g/dL Hematocrit 35.8 % Mean Corpuscular Volume 92.5 fL Mean Corpuscular Hemoglobin 29.5 pg Mean Corpuscular Hemoglobin Concent 31.8 g/dl RDW Standard Deviation 52.0 fL RDW Coefficient of Variation 15.4 % Platelet Count 217 K/uL Mean Platelet Volume 10.0 fL Venous Blood pH 7.41 Venous Blood Partial Pressure CO2 47 mmHg Venous Blood Partial Pressure O2 44 mmHg Venous Blood HCO3 29 mmol/L Venous Blood Oxygen Saturation 77.1 % Venous Blood Base Excess 3.5 mEq/L Sodium Level 137 mmol/L Potassium Level 4.4 mmol/L Chloride Level 101 mmol/L Carbon Dioxide Level 29 mmol/L Anion Gap 7.0 mmol/L Blood Urea Nitrogen 13 mg/dl Creatinine 0.87 mg/dl Est Creatinine Clear Calc Drug Dose 87.0 ml/min Estimated GFR () 91.9 Estimated GFR (Non- 79.3 BUN/Creatinine Ratio 14.5 Random Glucose 115 mg/dl Estimated Average Glucose 117 mg/dl Hemoglobin A1c 5.7 % Calcium Level 7.2 mg/dl Phosphorus Level 2.9 mg/dl Magnesium Level 2.5 mg/dl Bedside Glucose 109 mg/dl Assessment & Plan ACUTE HYPOXIC RESPIRATORY FAILURE: -likely secondary to aspiration pneumonia -patient has a history of bronchiectasis and aspiration -profound hypoxia in the ER, O2 sats in the 60s on admission -has been intubated and on the vent since 02/27; on sedation as well -CXR and CT suggestive of multifocal pneumonia; and right perihillar and left base masses noted -was started on Cefepime, Levaquin and Vancomycin in the ED as well as solu- medrol; now on vanco and cefepime day#2 -patient in ICU, Clinical Quality Manager consulted, management appreciated - planning for bronchoscopy in AM w/ possible EBUS -lactic acidosis likely secondary to above -continued on IV fluids ELEVATED TROPONINS: -EKG suggests QT prolongation -TTE Report: essentially no wall motion abnormalities, EF 55-60% * -- Conclusions -- * The left ventricle is normal in size. * There is normal left ventricular wall thickness. * No regional wall motion abnormalities noted. * Ejection Fraction = 55-60%. * The right ventricle is normal in size and function. * There is trace tricuspid regurgitation. * Doppler findings do not suggest pulmonary hypertension. The inferior vena cava is mildly dilated -serial CM trended down Current Inpatient Medications: Current Inpatient Medications Medications (Trade) Dose Ordered Sig/Kiera Route Start Time Stop Time Status Last Admin Dose Admin Ioversol (Optiray 320) 125 ml UD PRN IV 02/27/17 12:45 03/03/17 12:44 Miscellaneous Information ( Icu Electrolyte Replacement Protocol) 1 ea per protocol PRN N/A 02/27/17 13:15 03/06/17 13:14 Levalbuterol (Xopenex 1.25MG/ 0.5ML Neb) 1.25 mg Q4 PRN INH 02/27/17 13:15 03/29/17 13:14 Ipratropium [place] (Atrovent 0.02% 0.5MG/2.5ML Neb) 0.5 mg Q4H PRN INH 02/27/17 13:15 03/29/17 13:14 Insulin Aspart (novoLOG ASPART) SLIDING SCALE If C... Q6 SC 02/27/17 18:00 03/29/17 17:59 Glucose (Glucose 40% Gel) 15-30 GRAMS 15 GRAMS... UD PRN PO 02/27/17 13:15 03/29/17 13:14 Glucose (Glucose Chew Tab) 4-8 Tablets 4 Tabl... UD PRN PO 02/27/17 13:15 03/29/17 13:14 Dextrose (Dextrose 50% 50ML Syringe) 25-50ML OF 50% DW IV FOR... UD PRN IV 02/27/17 13:15 03/29/17 13:14 Glucagon (Glucagon Inj) 1 mg UD PRN SQ 02/27/17 13:15 03/29/17 13:14 Miscellaneous Information (Consult Glycemic Management Pharmacy) 1 ea UD PRN N/A 02/27/17 14:19 03/29/17 14:18 Propofol (Diprivan Iv Emulsion 100ml Vial) 1 dose UD PRN IV 02/27/17 13:10 03/02/17 13:09 02/28/17 18:02 1 DOSE Insulin Glargine (Lantus Solostar Pen) SEE PROTOCOL TEXT ... BID SC 02/27/17 21:00 03/29/17 20:59 Clonazepam (Klonopin Tab) 0.5 mg TID PO 02/27/17 21:00 03/29/17 20:59 02/28/17 14:10 0.5 MG Doxepin HCl (Sinequan Cap) 10 mg QD@2000 PO 02/27/17 20:00 03/29/17 19:59 02/27/17 21:00 10 MG Pravastatin Sodium (Pravachol Tab) 20 mg HS PO 02/27/17 21:00 03/29/17 20:59 02/27/17 21:00 20 MG Sertraline HCl (Zoloft Tab) 25 mg DAILY PO 02/28/17 09:00 03/30/17 08:59 02/28/17 07:50 25 MG Parenteral Electrolyte Solution 1,000 ml @ 100 mls/hr Q10H IV 02/27/17 16:30 03/29/17 16:29 02/28/17 12:27 100 MLS/HR Pantoprazole Sodium 40 mg/ Syringe 10 ml @ 5 mls/min DAILY@11 IV 02/28/17 11:00 03/30/17 10:59 02/28/17 10:53 5 MLS/MIN Cefepime HCl 2000 mg/Syringe 20 ml @ 5 mls/min Q8H IV 02/27/17 22:00 03/06/17 21:59 02/28/17 14:09 5 MLS/MIN Heparin Sodium (Porcine) (Heparin 10 Unit/ ml 5 ml Flush) 5 ml PRN PRN FLUSH 02/27/17 18:45 03/29/17 18:44 Fentanyl Citrate (Fentanyl Inj) 100 mcg Q2H PRN IV 02/28/17 01:00 03/13/17 14:59 Methylprednisolone Sodium Succinate 40 mg/Syringe 0.64 ml @ 1.5 mls/min Q6H IV 02/28/17 14:00 03/30/17 13:59 02/28/17 14:10 1.5 MLS/MIN Vancomycin HCl 1250 mg/Sodium Chloride 275 ml @ 125 mls/hr Q12H IV 02/28/17 22:00 03/14/17 21:59 Vancomycin HCl (Consult) 1 ea UD PRN N/A 02/28/17 17:30 03/30/17 17:29
[2017-02-28] MEDS: DOXEPIN HCL 10 MG CAP PO SCH (20:40)
[2017-02-28] MEDS: PRAVASTATIN SOD 20 MG TAB PO SCH (20:40)
[2017-03-01] VITALS (25 sets, daily range): BP systolic 111–150; BP diastolic 65–90; PULSE 51–70; TEMP 36.6–37.2; O2SAT 94–100
[2017-03-01] MEDS: METHYLPREDNISOLONE IV 40 MG in SYRINGE 0 ML IV SCH ×4 (02:22→20:44)
[2017-03-01] MEDS: PROPOFOL IV EMULSION 10 MG/ML 100 ML VIAL IV PRN ×5 (02:23→22:18)
[2017-03-01] MEDS ORDERED: VANCOMYCIN TROUGH ONE ×2 (05:30→09:30)
[2017-03-01 05:32] LABS: VEN BLD GAS O2 SATURATION 90.6 %; VEN BLOOD GAS BASE EXCESS 2.4 mEq/L
[2017-03-01 05:41] LABS: COMPLETE YES; HEMATOCRIT 35.3 % (37-47); IG% 0.3 %; LYMPH % 6.4 %; LYMPH ABS # 0.45 K/uL (1.2-3.4); MEAN CELL VOLUME 91.7 fL (80-100); MEAN CORPUSCULAR HEMOGLOBIN 29.9 pg (25-34); MEAN CORPUSCULAR HGB CONC 32.6 g/dl (32-36); MEAN PLATELET VOLUME 10.4 fL (7.4-10.4); MONO % 5.8 %; NEUT % 87.5 %; PLATELET COUNT 234 K/uL (130-400); RED BLOOD COUNT 3.85 M/uL (4.2-5.4); WHITE BLOOD COUNT 7.07 K/uL (4.8-10.8)
[2017-03-01] MEDS: INSULIN ASPART 100 UNITS/ML 3 ML PEN SC SCH ×4 (06:00→18:00)
[2017-03-01 06:27] LABS: BUN/CREATININE RATIO 16.9 (10-20); CALCIUM 7.2 mg/dl (8.5-10.1); CREATININE 0.7 mg/dl (0.60-1.20); PHOSPHORUS 2.1 mg/dl (2.5-4.9); POTASSIUM 4.2 mmol/L (3.5-5.1)
[2017-03-01] MEDS: CEFEPIME IV 2,000 MG in SYRINGE 7.5 ML IV SCH ×3 (06:36→22:17)
--- NOTE | 2017-03-01 07:22 | DIAGNOSTIC IMAGING REPORT ---
CHEST ONE VIEW PORTABLE CLINICAL HISTORY: Respiratory failure. Pneumonia. COMPARISON STUDY: 02/28/2017 FINDINGS: There is a nasogastric tube which passes in the stomach. There is an endotracheal tube positioned approximately 2 cm above the stan. There are persistent consolidative changes at the left lung base. There are small bilateral pleural effusions. Right mid to lower lung zone airspace opacities persist. There is stable right hilar enlargement.[ IMPRESSION: No significant change from the preceding study. Stable right hilar enlargement. Stable dense consolidative change involving the left lower lobe, and stable right mid and lower lung zone airspace opacities Electronically signed by: Domo Ventura M.D. 03/01/2017 7:21 AM Dictated Date/Time: 03/01/2017 7:19 AM
[2017-03-01] MEDS: INSULIN GLARGINE SOLOSTAR 100 UNITS/ML 3 ML PEN SC SCH ×2 (09:00→20:32)
[2017-03-01] MEDS ORDERED: NURSING ICU ELECTROLYTE ORDER ONE (09:00)
[2017-03-01] MEDS: POT PHOSPHATE MONOBASIC W/ SOD TAB PO SCH ×3 (09:39→16:34)
[2017-03-01] MEDS: SERTRALINE HCL 50 MG TAB PO SCH (09:41)
[2017-03-01] MEDS: CLONAZEPAM 0.5 MG TAB PO SCH ×3 (09:41→20:44)
--- NOTE | 2017-03-01 10:28 | Pharmacy Progress Note ---
Pharmacy Abx Dose Short Note Date of Service Mar 01, 2017. Assessment & Plan Assessment 46 year old female receiving vancomcyin/zosyn for treatment of possible pneumonia. Vancomcyin was started for the gram positive cocci in the blood. This has speciated to coag neg staph and called lab and confirmed this was 1/4 and thus likely a contaminate. Discussed with Joselo Mack PA-C and we will discontinue vancomycin at this time but continue the cefepime. Day # 3 of antimicrobial therapy. Plan Vancomycin * Discontinue Pharmacy will sign off at this time. Thank you.
[2017-03-01] MEDS: SODIUM CHLORIDE 0.9% 1000ML 1,000 ML IV SCH ×2 (10:29→20:45)
[2017-03-01] MEDS: PANTOprazole INJ 40 MG in SYRINGE 0 ML IV SCH (10:29)
[2017-03-01] MEDS: FENTANYL CITRATE INJ 50 MCG/1 ML 2 ML VIAL IV PRN (15:10)
--- NOTE | 2017-03-01 15:38 | Progress Note ---
Internal Med Progress Note Date of Service: Mar 01, 2017. Provider Documentation: SUBJECTIVE: The patient was seen and examined Remains stable on VENT OBJECTIVE: Vital Signs-as noted below Exam: General-Not in any distress Eyes-Closed ENT-Normal Neck-Supple Lungs-Clear to auscultate bilaterally Heart-Regular,no murmur Abdomen-Benign.no masses,bowel sound present Extremities-Trace edema bilaterally Neuro-Sedated on VENT Lab data as noted below. ASSESSMENT & PLAN: ACUTE HYPOXIC RESPIRATORY FAILURE: -likely secondary to RUL and BAN Pneumonia -Component of COPD-nonsmoker -patient has a history of bronchiectasis and aspiration -profound hypoxia in the ER, O2 sats in the 60s on admission -required intubation on admission 02/27; -CXR and CT suggestive of multifocal pneumonia; and -was started on Cefepime, Levaquin and Vancomycin in the ED as well as solu- medrol; now on vanco and cefepime day#3 -patient in ICU, Soap Chipper consulted, management appreciated - planning for bronchoscopy in AM w/ possible EBUS -lactic acidosis likely secondary to above -continued on IV fluids for now -clinically stable Right Perihilar and left base masses noted -Noted before -POA wants tissue diagnosis -Bronchoscopy + Biopsy Mental Retardation Stable ELEVATED TROPONINS: -EKG suggests QT prolongation -TTE Report: essentially no wall motion abnormalities, EF 55-60% * -- Conclusions -- * The left ventricle is normal in size. * There is normal left ventricular wall thickness. * No regional wall motion abnormalities noted. * Ejection Fraction = 55-60%. * The right ventricle is normal in size and function. * There is trace tricuspid regurgitation. * Doppler findings do not suggest pulmonary hypertension. The inferior vena cava is mildly dilated -serial CM trended down DVT PROPHYLAXIS Lovenox DISPOSITION Awaited Vital Signs: Date Time Temp Pulse Resp B/P (MAP) Pulse Ox O2 Delivery O2 Flow Rate FiO2 03/01/17 14:01 59 18 137/85 (102) 96 Mechanical Ventilator 40 03/01/17 13:01 59 18 134/76 (95) 96 Mechanical Ventilator 40 03/01/17 12:01 36.9 59 18 135/77 (96) 96 Mechanical Ventilator 40 03/01/17 12:00 Mechanical Ventilator 40 03/01/17 12:00 40 03/01/17 11:22 40 03/01/17 11:01 59 18 140/78 (98) 96 Mechanical Ventilator 40 03/01/17 10:01 37.0 60 18 139/80 (99) 96 Mechanical Ventilator 40 03/01/17 09:01 60 18 146/80 (102) 96 Mechanical Ventilator 40 03/01/17 08:01 37.1 58 18 131/89 (103) 98 Mechanical Ventilator 40 03/01/17 08:00 40 03/01/17 08:00 Mechanical Ventilator 40 03/01/17 08:00 Mechanical Ventilator 40 03/01/17 07:01 63 18 131/74 (93) 96 Mechanical Ventilator 40 03/01/17 07:00 40 03/01/17 06:01 62 18 127/69 (88) 96 Mechanical Ventilator 40 03/01/17 05:25 40 03/01/17 05:01 65 18 121/73 (89) 94 Mechanical Ventilator 40 03/01/17 04:01 37.2 65 18 117/72 (87) 94 Mechanical Ventilator 40 03/01/17 04:00 40 03/01/17 04:00 Mechanical Ventilator 40 03/01/17 03:01 70 18 126/74 (91) 95 Mechanical Ventilator 40 03/01/17 02:05 40 03/01/17 02:01 68 18 111/65 (80) 94 Mechanical Ventilator 40 03/01/17 01:01 68 18 118/65 (82) 94 Mechanical Ventilator 40 03/01/17 00:01 37.2 68 18 120/68 (85) 94 Mechanical Ventilator 40 02/28/17 23:59 40 02/28/17 23:59 Mechanical Ventilator 40 02/28/17 23:15 40 02/28/17 23:01 67 18 116/67 (83) 93 Mechanical Ventilator 40 02/28/17 22:01 67 18 108/65 (79) 93 Mechanical Ventilator 40 02/28/17 21:01 65 18 117/72 (87) 95 Mechanical Ventilator 40 02/28/17 20:37 40 02/28/17 20:01 37.1 76 18 128/73 (91) 94 Mechanical Ventilator 40 02/28/17 20:00 40 02/28/17 20:00 Mechanical Ventilator 40 02/28/17 18:21 40 02/28/17 18:00 72 18 128/66 (86) 94 Mechanical Ventilator 40 02/28/17 16:00 40 02/28/17 16:00 Mechanical Ventilator 40 02/28/17 16:00 37.2 73 18 126/69 (88) 93 Mechanical Ventilator 40 Lab Results: Results Past 24 Hours Test 02/28/17 18:24 02/28/17 23:57 03/01/17 05:13 03/01/17 06:12 Range/Units Bedside Glucose 119 134 109 70-90 mg/dl White Blood Count 7.07 4.8-10.8 K/uL Red Blood Count 3.85 4.2-5.4 M/uL Hemoglobin 11.5 12.0-16.0 g/dL Hematocrit 35.3 37-47 % Mean Corpuscular Volume 91.7 80-100 fL Mean Corpuscular Hemoglobin 29.9 25-34 pg Mean Corpuscular Hemoglobin Concent 32.6 32-36 g/dl Platelet Count 234 130-400 K/uL Mean Platelet Volume 10.4 7.4-10.4 fL Neutrophils (%) (Auto) 87.5 % Lymphocytes (%) (Auto) 6.4 % Monocytes (%) (Auto) 5.8 % Eosinophils (%) (Auto) 0.0 % Basophils (%) (Auto) 0.0 % Neutrophils # (Auto) 6.19 1.4-6.5 K/uL Lymphocytes # (Auto) 0.45 1.2-3.4 K/uL Monocytes # (Auto) 0.41 0.11-0.59 K/uL Eosinophils # (Auto) 0.00 0-0.5 K/uL Basophils # (Auto) 0.00 0-0.2 K/uL RDW Standard Deviation 52.4 36.4-46.3 fL RDW Coefficient of Variation 15.7 11.5-14.5 % Immature Granulocyte % (Auto) 0.3 % Immature Granulocyte # (Auto) 0.02 0.00-0.02 K/uL Venous Blood pH 7.45 7.36-7.41 Venous Blood Partial Pressure CO2 39 38.0-50.0 mmHg Venous Blood Partial Pressure O2 62 mmHg Venous Blood HCO3 26 mmol/L Venous Blood Oxygen Saturation 90.6 % Venous Blood Base Excess 2.4 mEq/L Sodium Level 139 136-145 mmol/L Potassium Level 4.2 3.5-5.1 mmol/L Chloride Level 106 98-107 mmol/L Carbon Dioxide Level 26 21-32 mmol/L Anion Gap 7.0 3-11 mmol/L Blood Urea Nitrogen 12 7-18 mg/dl Creatinine 0.70 0.60-1.20 mg/dl Est Creatinine Clear Calc Drug Dose 108.1 ml/min Estimated GFR () 119.6 Estimated GFR (Non- 103.2 BUN/Creatinine Ratio 16.9 10-20 Random Glucose 122 70-99 mg/dl Calcium Level 7.2 8.5-10.1 mg/dl Phosphorus Level 2.1 2.5-4.9 mg/dl Magnesium Level 3.0 1.8-2.4 mg/dl Test 03/01/17 09:34 03/01/17 09:35 03/01/17 12:54 Range/Units Vancomycin Level Trough 13.5 SEE COMMENT mcg/ml Bedside Glucose 111 112 70-90 mg/dl
--- NOTE | 2017-03-01 19:59 | Critical Care Progress Note ---
Critical Care Progress Note Date of Service Mar 01, 2017. Attending Dr. Ascencion Copeland The patient remains intubated and sedated, she opened her eyes, she does not follow command as part of her mental retardation. Review of systems was not obtainable. Objective VSS, S1S2 RRR, lungs with diminished BS, abdomen is benign. CCE. neuro awake but does not follow commands. BL. Physical exam on 03/01/17 revealed stable vital signs, off pressors, heart examination S1-S2 regular rate and rhythm, abdomen is benign, trace edema in the periphery. Neurologically difficult to assess. Current SOFA Score SOFA Score Response (Comments) Value PaO2/FiO2 (mmHg) < 400 1 SaO2 / FIO2 221 - 301 1 Platelets (x10) > 150 0 Bilirubin (mg/dL) < 1.2 0 [place] Coma Score 15 0 Level of Hypotension No Hypotension 0 Creatinine (mg/dL) < 1.2 0 Total 2 Assessment & Plan #1 acute respiratory failure. #2 bilateral lipoid pneumonia. #3 pneumonia affecting the left upper lobe as well. Appear to be infectious. #4 although the patient does not have a history of obstructive lung disease but it is showing on the CAT scan. She does have what appear to be bronchiectasis. #5 severe tracheal bronchomalacia. #6 mental retardation. Plan: #1 continue current antibiotics and steroids in addition to bronchodilators. Including vancomycin and cefepime. #2 daily spontaneous breathing trial. #3 a bronchoscopy was attempted after discussing the case with radiology and reviewing the CAT scan on this admission and in 2008. Both CAT scans showed a persistence of a masslike lesion in the right hilum and the left inferior hilar area. Both of consistent with lipoid pneumonia versus PAP. Microscopy was aborted prior to attempting any sampling as the patient become hypoxic in supine position. The patient gained back again her saturation and upright position. Secretions were removed from the airways and sent for cultures. #4 I will restart the patient on heparin subcutaneous. #5 case discussed with the mother and sister at the bedside and details. All questions were answered. #6 case discussed with the staff on rounds and details. Critical care time spent with the patient excluding procedure time was 45 minutes. Consults & Procedures Consultants: none Procedures: bronch in am. Data Medications: Current Inpatient Medications Medications (Trade) Dose Ordered Sig/Kiera Route Start Time Stop Time Status Last Admin Dose Admin Ioversol (Optiray 320) 125 ml UD PRN IV 02/27/17 12:45 03/03/17 12:44 Miscellaneous Information ( Icu Electrolyte Replacement Protocol) 1 ea per protocol PRN N/A 02/27/17 13:15 03/06/17 13:14 Levalbuterol (Xopenex 1.25MG/ 0.5ML Neb) 1.25 mg Q4 PRN INH 02/27/17 13:15 03/29/17 13:14 Ipratropium [place] (Atrovent 0.02% 0.5MG/2.5ML Neb) 0.5 mg Q4H PRN INH 02/27/17 13:15 03/29/17 13:14 Insulin Aspart (novoLOG ASPART) SLIDING SCALE If C... Q6 SC 02/27/17 18:00 03/29/17 17:59 Glucose (Glucose 40% Gel) 15-30 GRAMS 15 GRAMS... UD PRN PO 02/27/17 13:15 03/29/17 13:14 Glucose (Glucose Chew Tab) 4-8 Tablets 4 Tabl... UD PRN PO 02/27/17 13:15 03/29/17 13:14 Dextrose (Dextrose 50% 50ML Syringe) 25-50ML OF 50% DW IV FOR... UD PRN IV 02/27/17 13:15 03/29/17 13:14 Glucagon (Glucagon Inj) 1 mg UD PRN SQ 02/27/17 13:15 03/29/17 13:14 Miscellaneous Information (Consult Glycemic Management Pharmacy) 1 ea UD PRN N/A 02/27/17 14:19 03/29/17 14:18 Propofol (Diprivan Iv Emulsion 100ml Vial) 1 dose UD PRN IV 02/27/17 13:10 03/02/17 13:09 03/01/17 16:54 1 DOSE Insulin Glargine (Lantus Solostar Pen) SEE PROTOCOL TEXT ... BID SC 02/27/17 21:00 03/29/17 20:59 Clonazepam (Klonopin Tab) 0.5 mg TID PO 02/27/17 21:00 03/29/17 20:59 03/01/17 14:34 0.5 MG Doxepin HCl (Sinequan Cap) 10 mg QD@2000 PO 02/27/17 20:00 03/29/17 19:59 02/28/17 20:40 10 MG Pravastatin Sodium (Pravachol Tab) 20 mg HS PO 02/27/17 21:00 03/29/17 20:59 02/28/17 20:40 20 MG Sertraline HCl (Zoloft Tab) 25 mg DAILY PO 02/28/17 09:00 03/30/17 08:59 03/01/17 09:41 25 MG Pantoprazole Sodium 40 mg/ Syringe 10 ml @ 5 mls/min DAILY@11 IV 02/28/17 11:00 03/30/17 10:59 03/01/17 10:29 5 MLS/MIN Cefepime HCl 2000 mg/Syringe 20 ml @ 5 mls/min Q8H IV 02/27/17 22:00 03/06/17 21:59 03/01/17 12:43 5 MLS/MIN Heparin Sodium (Porcine) (Heparin 10 Unit/ ml 5 ml Flush) 5 ml PRN PRN FLUSH 02/27/17 18:45 03/29/17 18:44 Fentanyl Citrate (Fentanyl Inj) 100 mcg Q2H PRN IV 02/28/17 01:00 03/13/17 14:59 03/01/17 15:10 100 MCG Methylprednisolone Sodium Succinate 40 mg/Syringe 0.64 ml @ 1.5 mls/min Q6H IV 02/28/17 14:00 03/30/17 13:59 03/01/17 13:00 1.5 MLS/MIN Sodium Chloride 1,000 ml @ 100 mls/hr Q10H IV 03/01/17 09:30 03/31/17 09:29 03/01/17 10:29 100 MLS/HR I & O: 24-Hour Column 03/02/17 08:00 Intake Total 893 ml Output Total 750 ml Balance 143 ml Vital Signs: Date Time Temp Pulse Resp B/P (MAP) Pulse Ox O2 Delivery O2 Flow Rate FiO2 03/01/17 18:30 100 03/01/17 18:01 36.9 56 18 145/90 (108) 100 Mechanical Ventilator 100 03/01/17 17:01 54 18 150/87 (108) 100 Mechanical Ventilator 100 03/01/17 16:01 36.6 57 18 140/82 (101) 99 Mechanical Ventilator 100 03/01/17 16:00 Mechanical Ventilator 40 03/01/17 16:00 100 03/01/17 15:01 59 18 140/82 (101) 96 Mechanical Ventilator 100 03/01/17 14:25 40 03/01/17 14:01 59 18 137/85 (102) 96 Mechanical Ventilator 40 03/01/17 13:01 59 18 134/76 (95) 96 Mechanical Ventilator 40 03/01/17 12:01 36.9 59 18 135/77 (96) 96 Mechanical Ventilator 40 03/01/17 12:00 Mechanical Ventilator 40 03/01/17 12:00 40 03/01/17 11:22 40 03/01/17 11:01 59 18 140/78 (98) 96 Mechanical Ventilator 40 03/01/17 10:01 37.0 60 18 139/80 (99) 96 Mechanical Ventilator 40 03/01/17 09:01 60 18 146/80 (102) 96 Mechanical Ventilator 40 03/01/17 08:01 37.1 58 18 131/89 (103) 98 Mechanical Ventilator 40 03/01/17 08:00 40 03/01/17 08:00 Mechanical Ventilator 40 03/01/17 08:00 Mechanical Ventilator 40 03/01/17 07:01 63 18 131/74 (93) 96 Mechanical Ventilator 40 03/01/17 07:00 40 03/01/17 06:01 62 18 127/69 (88) 96 Mechanical Ventilator 40 03/01/17 05:25 40 03/01/17 05:01 65 18 121/73 (89) 94 Mechanical Ventilator 40 03/01/17 04:01 37.2 65 18 117/72 (87) 94 Mechanical Ventilator 40 03/01/17 04:00 40 03/01/17 04:00 Mechanical Ventilator 40 03/01/17 03:01 70 18 126/74 (91) 95 Mechanical Ventilator 40 03/01/17 02:05 40 03/01/17 02:01 68 18 111/65 (80) 94 Mechanical Ventilator 40 03/01/17 01:01 68 18 118/65 (82) 94 Mechanical Ventilator 40 03/01/17 00:01 37.2 68 18 120/68 (85) 94 Mechanical Ventilator 40 02/28/17 23:59 40 02/28/17 23:59 Mechanical Ventilator 40 02/28/17 23:15 40 02/28/17 23:01 67 18 116/67 (83) 93 Mechanical Ventilator 40 02/28/17 22:01 67 18 108/65 (79) 93 Mechanical Ventilator 40 02/28/17 21:01 65 18 117/72 (87) 95 Mechanical Ventilator 40 02/28/17 20:37 40 02/28/17 20:01 37.1 76 18 128/73 (91) 94 Mechanical Ventilator 40 02/28/17 20:00 40 02/28/17 20:00 Mechanical Ventilator 40 Laboratory Results: Last 24 Hours Test 02/28/17 23:57 03/01/17 05:13 03/01/17 06:12 03/01/17 09:34 Bedside Glucose 134 mg/dl 109 mg/dl White Blood Count 7.07 K/uL Red Blood Count 3.85 M/uL Hemoglobin 11.5 g/dL Hematocrit 35.3 % Mean Corpuscular Volume 91.7 fL Mean Corpuscular Hemoglobin 29.9 pg Mean Corpuscular Hemoglobin Concent 32.6 g/dl Platelet Count 234 K/uL Mean Platelet Volume 10.4 fL Neutrophils (%) (Auto) 87.5 % Lymphocytes (%) (Auto) 6.4 % Monocytes (%) (Auto) 5.8 % Eosinophils (%) (Auto) 0.0 % Basophils (%) (Auto) 0.0 % Neutrophils # (Auto) 6.19 K/uL Lymphocytes # (Auto) 0.45 K/uL Monocytes # (Auto) 0.41 K/uL Eosinophils # (Auto) 0.00 K/uL Basophils # (Auto) 0.00 K/uL RDW Standard Deviation 52.4 fL RDW Coefficient of Variation 15.7 % Immature Granulocyte % (Auto) 0.3 % Immature Granulocyte # (Auto) 0.02 K/uL Venous Blood pH 7.45 Venous Blood Partial Pressure CO2 39 mmHg Venous Blood Partial Pressure O2 62 mmHg Venous Blood HCO3 26 mmol/L Venous Blood Oxygen Saturation 90.6 % Venous Blood Base Excess 2.4 mEq/L Sodium Level 139 mmol/L Potassium Level 4.2 mmol/L Chloride Level 106 mmol/L Carbon Dioxide Level 26 mmol/L Anion Gap 7.0 mmol/L Blood Urea Nitrogen 12 mg/dl Creatinine 0.70 mg/dl Est Creatinine Clear Calc Drug Dose 108.1 ml/min Estimated GFR () 119.6 Estimated GFR (Non- 103.2 BUN/Creatinine Ratio 16.9 Random Glucose 122 mg/dl Calcium Level 7.2 mg/dl Phosphorus Level 2.1 mg/dl Magnesium Level 3.0 mg/dl Vancomycin Level Trough 13.5 mcg/ml Test 03/01/17 09:35 03/01/17 12:54 03/01/17 15:20 Bedside Glucose 111 mg/dl 112 mg/dl Body Fluid Polynuclear WBCs 80.0 % Body Fluid Mononuclear Cells 20.0 %
--- NOTE | 2017-03-01 20:39 | Procedure Note ---
Procedure Note Procedure Date Mar 01, 2017. Procedure Description Procedure Name: Bronchoscopy. Procedure was aborted due to hypoxia. Procedure time out: side/site verified Consent obtained: written Performed by: attending Indications: diagnostic Contraindications: none Description: The patient was already intubated in bed 3 in the ICU. The patient was already sedated with propofol and received 50 g of fentanyl IV. The patient was place in supine position for the procedure. She become hypoxic after insertion of the bronchoscopy and suctioning of the moderate thick secretions. The patient noted to have a friable mucosa. No attempt of biopsy or obtaining specimen was done. The bronchoscope was withdrawn after cleaning the airway. The patient gained her O2 saturation quickly after we put her in recumbent position. No further complications reported. The patient was able to open her eyes after work. Case discussed with the family and notified about that event. Noted that the patient does have collapsible airway extending from the distal trachea to the bronchus intermedius consistent with tracheal bronchomalacia. Noted that the patient has extrinsic compression likely from lipoid pneumonia no one on the CAT scan. These findings were bilaterally compressing of the takeoff of the right lower lobe and left lower lobe subsegments. Specimen was sent for cell count and differential with Gram stain and cultures. Patient tolerated procedure: other (the procedure is not tolerable.)
[2017-03-01] MEDS: PRAVASTATIN SOD 20 MG TAB PO SCH (20:44)
[2017-03-01] MEDS: DOXEPIN HCL 10 MG CAP PO SCH (20:44)
[2017-03-01] MEDS: HEPARIN SOD 5000 UNIT/0.5 ML CARP SQ SCH (20:45)
[2017-03-02] VITALS (25 sets, daily range): BP systolic 100–154; BP diastolic 40–107; PULSE 43–75; TEMP 36.4–36.9; O2SAT 95–99
[2017-03-02] MEDS: METHYLPREDNISOLONE IV 40 MG in SYRINGE 0 ML IV SCH ×3 (02:10→21:39)
[2017-03-02] MEDS: PROPOFOL IV EMULSION 10 MG/ML 100 ML VIAL IV PRN ×2 (02:46→08:03)
[2017-03-02] MEDS: INSULIN ASPART 100 UNITS/ML 3 ML PEN SC SCH ×4 (06:00→18:39)
[2017-03-02 06:06] LABS: COMPLETE YES; IG% 0.1 %; LYMPH % 6.9 %; LYMPH ABS # 0.53 K/uL (1.2-3.4); MEAN CELL VOLUME 92.5 fL (80-100); MEAN CORPUSCULAR HEMOGLOBIN 29.5 pg (25-34); MEAN CORPUSCULAR HGB CONC 31.9 g/dl (32-36); MEAN PLATELET VOLUME 10.2 fL (7.4-10.4); MONO % 6.7 %; NEUT % 86.3 %; PLATELET COUNT 223 K/uL (130-400); WHITE BLOOD COUNT 7.65 K/uL (4.8-10.8)
[2017-03-02] MEDS: CEFEPIME IV 2,000 MG in SYRINGE 7.5 ML IV SCH ×3 (06:09→21:38)
[2017-03-02 06:43] LABS: BUN/CREATININE RATIO 22.5 (10-20); CREATININE 0.62 mg/dl (0.60-1.20); MAGNESIUM 2.9 mg/dl (1.8-2.4); PHOSPHORUS 2.4 mg/dl (2.5-4.9)
[2017-03-02] MEDS ORDERED: NURSING ICU ELECTROLYTE ORDER ONE (07:15)
--- NOTE | 2017-03-02 07:38 | DIAGNOSTIC IMAGING REPORT ---
SINGLE VIEW CHEST CLINICAL HISTORY: Follow-up pneumonia. FINDINGS: An AP, portable, upright chest radiograph is compared to study dated 03/01/2017. Correlation is made with chest CT dated 02/27/2017. The examination is severely degraded by portable technique and patient rotation. An endotracheal tube and an enteric tube are unchanged in position. The heart is enlarged. Mild pulmonary vascular congestion is suggested. Airspace consolidation in the left lower lobe in the right suprahilar region are similar to previous. Small pleural effusions are suspected No pneumothorax is seen. The skeletal structures appear osteopenic. The bony thorax is grossly intact. IMPRESSION: 1. Stable lines and tubes. 2. Cardiomegaly. Mild pulmonary vascular congestion is suspected. 3. Suspect trace pleural effusions. 4. Right upper and left lower lobe consolidation/opacities are similar to previous. Electronically signed by: Joselo Spivey M.D. 03/02/2017 7:37 AM Dictated Date/Time: 03/02/2017 7:35 AM
[2017-03-02] MEDS: SERTRALINE HCL 50 MG TAB PO SCH (08:01)
[2017-03-02] MEDS: CLONAZEPAM 0.5 MG TAB PO SCH ×3 (08:01→21:38)
[2017-03-02] MEDS: POT PHOSPHATE MONOBASIC W/ SOD TAB PEG SCH ×3 (08:02→15:16)
[2017-03-02] MEDS: SODIUM CHLORIDE 0.9% 1000ML 1,000 ML IV SCH (08:03)
[2017-03-02] MEDS: HEPARIN SOD 5000 UNIT/0.5 ML CARP SQ SCH ×2 (08:03→21:39)
[2017-03-02] MEDS: FENTANYL CITRATE INJ 50 MCG/1 ML 2 ML VIAL IV PRN ×3 (08:52→23:47)
[2017-03-02] MEDS: INSULIN GLARGINE SOLOSTAR 100 UNITS/ML 3 ML PEN SC SCH (09:00)
[2017-03-02] MEDS ORDERED: FENTANYL CITRATE 1250MCG/250ML NSS ONE (09:00)
[2017-03-02] MEDS ORDERED: NURSING VERBAL MED ORDER ONE (10:00)
[2017-03-02] MEDS ORDERED: FENTANYL 1250MCG/250ML NSS IV PRN (10:45)
--- NOTE | 2017-03-02 11:16 | Pharmacy Progress Note ---
Pharmacy Glycemic Sign Off Nt Date of Service Mar 02, 2017. Assessment & Plan ASSESSMENT: * Pharmacy was consulted by Dr michel on 02/27 for glycemic control and to write orders per [facility] inpatient glycemic control protocol secondary to anticipated steroid effect. * Patient has not required any insulin for steroid induced hyperglycemia during this stay * Do not anticipate further changes in patient status that would quickly deteriorate glycemic control (i.e. patient to be NPO for upcoming procedure, steroids tapering, starting tube feedings, etc). PLAN FOR INPATIENT GLYCEMIC CONTROL: * Will leave NovoLog per [id number] while NPO * Goal range = 120 - 180 mg/dl * CF = 20 mg/dl/unit * No correction factor * Pharmacy is signing off of glycemic consult and will no longer be making adjustments to inpatient regimen. Please feel free to re-consult if needed. Thank you.
[2017-03-02] MEDS ORDERED: FUROSEMIDE 40 MG/4 ML VIAL ONE (11:42)
--- NOTE | 2017-03-02 12:02 | Progress Note ---
Internal Med Progress Note Date of Service: Mar 02, 2017. Provider Documentation: SUBJECTIVE: The patient was seen and examined Remains stable on VENT Desaturates during Bronchoscopy Will try to wean and extubate OBJECTIVE: Vital Signs-as noted below Exam: General-Not in any distress Eyes-opening eyes ENT-Normal Neck-Supple Lungs-Clear to auscultate bilaterally Heart-Regular,no murmur Abdomen-Benign.no masses,bowel sound present Extremities-Trace edema bilaterally Neuro-Sedated on VENT Lab data as noted below. ASSESSMENT & PLAN: ACUTE HYPOXIC RESPIRATORY FAILURE: -likely secondary to RUL and BAN Pneumonia -Component of COPD-nonsmoker -patient has a history of bronchiectasis and aspiration -profound hypoxia in the ER, O2 sats in the 60s on admission -required intubation on admission 02/27; -CXR and CT suggestive of multifocal pneumonia; and -was started on Cefepime, Levaquin and Vancomycin in the ED as well as solu- medrol; now on vanco and cefepime day#3 -patient in ICU, Well Shooter consulted, management appreciated - planning for bronchoscopy in AM w/ possible EBUS -lactic acidosis likely secondary to above -continued on IV fluids for now -failed Bronchoscopy due to desaturation -will try to wean and extubate in a day or two Right Perihilar and left base masses noted -Noted before -POA wants tissue diagnosis -Bronchoscopy + Biopsy -failed Mental Retardation Stable ELEVATED TROPONINS: -EKG suggests QT prolongation -TTE Report: essentially no wall motion abnormalities, EF 55-60% * -- Conclusions -- * The left ventricle is normal in size. * There is normal left ventricular wall thickness. * No regional wall motion abnormalities noted. * Ejection Fraction = 55-60%. * The right ventricle is normal in size and function. * There is trace tricuspid regurgitation. * Doppler findings do not suggest pulmonary hypertension. The inferior vena cava is mildly dilated -serial CM trended down DVT PROPHYLAXIS Lovenox DISPOSITION Awaited Vital Signs: Date Time Temp Pulse Resp B/P (MAP) Pulse Ox O2 Delivery O2 Flow Rate FiO2 03/02/17 09:02 43 18 100/40 (60) 97 Mechanical Ventilator 40 03/02/17 08:01 36.9 46 18 154/86 (108) 98 Mechanical Ventilator 40 03/02/17 08:00 100 03/02/17 08:00 Mechanical Ventilator 40 03/02/17 07:01 52 18 137/81 (99) 97 Mechanical Ventilator 40 03/02/17 06:55 40 03/02/17 06:01 70 18 138/107 (117) 98 Mechanical Ventilator 40 03/02/17 06:00 40 03/02/17 05:01 55 18 142/84 (103) 99 Mechanical Ventilator 40 03/02/17 04:01 36.8 50 18 141/82 (101) 99 Mechanical Ventilator 40 03/02/17 04:00 40 03/02/17 04:00 Mechanical Ventilator 40 03/02/17 03:01 52 18 140/81 (100) 99 Mechanical Ventilator 50 03/02/17 02:01 49 18 142/87 (105) 99 Mechanical Ventilator 50 03/02/17 02:00 40 03/02/17 01:01 51 18 142/86 (104) 98 Mechanical Ventilator 50 03/02/17 00:01 36.6 54 18 132/78 (96) 99 Mechanical Ventilator 50 03/01/17 23:59 50 03/01/17 23:59 Mechanical Ventilator 50 03/01/17 23:01 54 18 142/90 (107) 99 Mechanical Ventilator 50 03/01/17 22:30 57 18 135/80 (98) 99 Mechanical Ventilator 50 03/01/17 22:25 50 03/01/17 22:01 51 18 142/82 (102) 100 Mechanical Ventilator 50 03/01/17 21:01 56 18 130/78 (95) 100 Mechanical Ventilator 60 03/01/17 20:01 36.6 51 18 139/77 (97) 99 Mechanical Ventilator 60 03/01/17 20:00 60 03/01/17 20:00 Mechanical Ventilator 60 03/01/17 19:55 60 03/01/17 19:01 51 18 132/78 (96) 99 Mechanical Ventilator 80 03/01/17 18:30 100 03/01/17 18:01 36.9 56 18 145/90 (108) 100 Mechanical Ventilator 100 03/01/17 17:01 54 18 150/87 (108) 100 Mechanical Ventilator 100 03/01/17 16:01 36.6 57 18 140/82 (101) 99 Mechanical Ventilator 100 03/01/17 16:00 Mechanical Ventilator 40 03/01/17 16:00 100 12/12/17 15:01 59 18 140/82 (101) 96 Mechanical Ventilator 100 03/01/17 14:25 40 03/01/17 14:01 59 18 137/85 (102) 96 Mechanical Ventilator 40 03/01/17 13:01 59 18 134/76 (95) 96 Mechanical Ventilator 40 03/01/17 12:01 36.9 59 18 135/77 (96) 96 Mechanical Ventilator 40 03/01/17 12:00 Mechanical Ventilator 40 03/01/17 12:00 40 Lab Results: Results Past 24 Hours Test 03/01/17 12:54 03/01/17 15:20 03/01/17 18:04 03/01/17 20:07 Range/Units Bedside Glucose 112 117 104 70-90 mg/dl Body Fluid Polynuclear WBCs 80.0 % Body Fluid Mononuclear Cells 20.0 % Test 03/01/17 23:57 03/02/17 05:36 03/02/17 06:02 Range/Units Bedside Glucose 108 107 70-90 mg/dl White Blood Count 7.65 4.8-10.8 K/uL Red Blood Count 4.00 4.2-5.4 M/uL Hemoglobin 11.8 12.0-16.0 g/dL Hematocrit 37.0 37-47 % Mean Corpuscular Volume 92.5 80-100 fL Mean Corpuscular Hemoglobin 29.5 25-34 pg Mean Corpuscular Hemoglobin Concent 31.9 32-36 g/dl Platelet Count 223 130-400 K/uL Mean Platelet Volume 10.2 7.4-10.4 fL Neutrophils (%) (Auto) 86.3 % Lymphocytes (%) (Auto) 6.9 % Monocytes (%) (Auto) 6.7 % Eosinophils (%) (Auto) 0.0 % Basophils (%) (Auto) 0.0 % Neutrophils # (Auto) 6.60 1.4-6.5 K/uL Lymphocytes # (Auto) 0.53 1.2-3.4 K/uL Monocytes # (Auto) 0.51 0.11-0.59 K/uL Eosinophils # (Auto) 0.00 0-0.5 K/uL Basophils # (Auto) 0.00 0-0.2 K/uL RDW Standard Deviation 52.2 36.4-46.3 fL RDW Coefficient of Variation 15.4 11.5-14.5 % Immature Granulocyte % (Auto) 0.1 % Immature Granulocyte # (Auto) 0.01 0.00-0.02 K/uL Sodium Level 138 136-145 mmol/L Potassium Level 4.0 3.5-5.1 mmol/L Chloride Level 108 98-107 mmol/L Carbon Dioxide Level 24 21-32 mmol/L Anion Gap 6.0 3-11 mmol/L Blood Urea Nitrogen 14 7-18 mg/dl Creatinine 0.62 0.60-1.20 mg/dl Est Creatinine Clear Calc Drug Dose 125.6 ml/min Estimated GFR () 124.5 Estimated GFR (Non- 107.4 BUN/Creatinine Ratio 22.5 10-20 Random Glucose 111 70-99 mg/dl Calcium Level 7.0 8.5-10.1 mg/dl Phosphorus Level 2.4 2.5-4.9 mg/dl Magnesium Level 2.9 1.8-2.4 mg/dl Microbiology Results 03/01/17 Gram Stain - Final, Resulted 03/01/17 Bronchoalveolar Lavage Culture, Resulted Pending
[2017-03-02] MEDS: PANTOprazole INJ 40 MG in SYRINGE 0 ML IV SCH (12:44)
[2017-03-02] MEDS ORDERED: FUROSEMIDE INJ 20 MG in SYRINGE 0 ML IV ONE (13:00)
[2017-03-02] MEDS ORDERED: OLANZAPINE ZYDIS 5 MG ORALLY DIS. TAB PO ONE (13:30)
[2017-03-02] MEDS: PEPTAMEN INTENSE VHP 1000ML BAG NG PRN (13:33)
--- NOTE | 2017-03-02 15:28 | Critical Care Progress Note ---
Critical Care Progress Note Date of Service Mar 02, 2017. Attending Dr. Vegas Subjective The patient has history of MR and review of systems is not obtainable. She is also intubated. Objective VSS, S1S2 RRR, lungs with diminished BS, abdomen is benign. CCE. neuro awake but does not follow commands. BL. Physical exam on 03/01/17 revealed stable vital signs, off pressors, heart examination S1-S2 regular rate and rhythm, abdomen is benign, trace edema in the periphery. Neurologically difficult to assess. On 03/02/2017, the patient continued to have difficulty adjusting to the ventilator. The patient also had episodes of hypoxia and hypercapnia. Current SOFA Score SOFA Score Response (Comments) Value PaO2/FiO2 (mmHg) < 400 1 SaO2 / FIO2 221 - 301 1 Platelets (x10) > 150 0 Bilirubin (mg/dL) < 1.2 0 [place] Coma Score 15 0 Level of Hypotension No Hypotension 0 Creatinine (mg/dL) < 1.2 0 Total 2 Assessment & Plan #1 acute respiratory failure secondary to infectious pneumonia and lipoid pneumonia. 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 #3 mental retardation interfering also with her ability to communicate symptomatically. Even when she is off the sedation. 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 Plan: #1 change the vent settings to pressure control mode. #2 take the patient off propofol as she become bradycardic. #3 start the patient on when necessary fentanyl. #4 start the patient on Zyprexa sublingual 5 mg every 12 hours. #5 continue current antibiotics. #6 the patient staph species in the sputum is not MRSA we will stop vancomycin. #7 DVT and GI prophylaxis. #8 tube feeding. #9 no skin issues. #10 I will stop doxepin, low dose and ineffective in a patient who is on the ventilator. #11 Lasix 40 mg 1 dose was given. #12 stopped IV fluid as a patient sudden to proceeding. #13 daily labs. Case discussed with the staff about some details. Critical care time spent with the patient was 45 minutes. Consults & Procedures Consultants: none Procedures: bronch in am. Data Medications: Current Inpatient Medications Medications (Trade) Dose Ordered Sig/Kiera Route Start Time Stop Time Status Last Admin Dose Admin Ioversol (Optiray 320) 125 ml UD PRN IV 02/27/17 12:45 03/03/17 12:44 Miscellaneous Information ( Icu Electrolyte Replacement Protocol) 1 ea per protocol PRN N/A 02/27/17 13:15 03/06/17 13:14 Levalbuterol (Xopenex 1.25MG/ 0.5ML Neb) 1.25 mg Q4 PRN INH 02/27/17 13:15 03/29/17 13:14 Ipratropium [place] (Atrovent 0.02% 0.5MG/2.5ML Neb) 0.5 mg Q4H PRN INH 02/27/17 13:15 03/29/17 13:14 Insulin Aspart (novoLOG ASPART) SLIDING SCALE If C... Q6 SC 02/27/17 18:00 03/29/17 17:59 Glucose (Glucose 40% Gel) 15-30 GRAMS 15 GRAMS... UD PRN PO 02/27/17 13:15 03/29/17 13:14 Glucose (Glucose Chew Tab) 4-8 Tablets 4 Tabl... UD PRN PO 02/27/17 13:15 03/29/17 13:14 Dextrose (Dextrose 50% 50ML Syringe) 25-50ML OF 50% DW IV FOR... UD PRN IV 02/27/17 13:15 03/29/17 13:14 Glucagon (Glucagon Inj) 1 mg UD PRN SQ 02/27/17 13:15 03/29/17 13:14 Clonazepam (Klonopin Tab) 0.5 mg TID PO 02/27/17 21:00 03/29/17 20:59 03/02/17 13:35 0.5 MG Pravastatin Sodium (Pravachol Tab) 20 mg HS PO 02/27/17 21:00 03/29/17 20:59 03/01/17 20:44 20 MG Sertraline HCl (Zoloft Tab) 25 mg DAILY PO 02/28/17 09:00 03/30/17 08:59 03/02/17 08:01 25 MG Pantoprazole Sodium 40 mg/ Syringe 10 ml @ 5 mls/min DAILY@11 IV 02/28/17 11:00 03/30/17 10:59 03/02/17 12:44 5 MLS/MIN Cefepime HCl 2000 mg/Syringe 20 ml @ 5 mls/min Q8H IV 02/27/17 22:00 03/06/17 21:59 03/02/17 13:34 5 MLS/MIN Heparin Sodium (Porcine) (Heparin 10 Unit/ ml 5 ml Flush) 5 ml PRN PRN FLUSH 02/27/17 18:45 03/29/17 18:44 Fentanyl Citrate (Fentanyl Inj) 100 mcg Q2H PRN IV 02/28/17 01:00 03/13/17 14:59 03/02/17 08:52 100 MCG Heparin Sodium (Porcine) (Heparin Sq 5000 Unit/0.5ml) 5,000 unit Q12 SQ 03/01/17 21:00 03/31/17 20:59 03/02/17 08:03 5,000 UNIT Potassium/ Phosphorus/Sodium (Phospha 250 Neutral 155-852-130 Mg) 1 tab Q4H PEG 03/02/17 08:00 03/02/17 16:01 03/02/17 15:16 1 TAB Enteral Nutritional Formula (Peptamen Intense VHP) 1,000 ml UD PRN NG 03/02/17 10:30 04/01/17 10:29 03/02/17 13:33 1,000 ML Methylprednisolone Sodium Succinate 40 mg/Syringe 0.64 ml @ 1.5 mls/min Q12H IV 03/02/17 21:00 04/01/17 20:59 Olanzapine (Zyprexa Zydis Od Tab) 5 mg BID PO 03/02/17 21:00 04/01/17 20:59 I & O: 24-Hour Column 03/03/17 07:59 Intake Total 500 ml Output Total 1550 ml Balance -1050 ml Vital Signs: Date Time Temp Pulse Resp B/P (MAP) Pulse Ox O2 Delivery O2 Flow Rate FiO2 03/02/17 13:01 50 20 142/83 (102) 98 Mechanical Ventilator 40 03/02/17 12:27 36.9 49 20 135/80 (98) 98 Mechanical Ventilator 40 03/02/17 12:00 40 03/02/17 12:00 Mechanical Ventilator 40 03/02/17 11:50 40 03/02/17 11:01 52 18 134/87 (103) 97 Mechanical Ventilator 40 03/02/17 10:01 52 18 140/84 (102) 97 Mechanical Ventilator 40 03/02/17 09:02 43 18 100/40 (60) 97 Mechanical Ventilator 40 03/02/17 08:01 36.9 46 18 154/86 (108) 98 Mechanical Ventilator 40 03/02/17 08:00 40 03/02/17 08:00 Mechanical Ventilator 40 03/02/17 08:00 Mechanical Ventilator 40 03/02/17 07:01 52 18 137/81 (99) 97 Mechanical Ventilator 40 03/02/17 06:55 40 03/02/17 06:01 70 18 138/107 (117) 98 Mechanical Ventilator 40 03/02/17 06:00 40 03/02/17 05:01 55 18 142/84 (103) 99 Mechanical Ventilator 40 03/02/17 04:01 36.8 50 18 141/82 (101) 99 Mechanical Ventilator 40 03/02/17 04:00 40 03/02/17 04:00 Mechanical Ventilator 40 03/02/17 03:01 52 18 140/81 (100) 99 Mechanical Ventilator 50 03/02/17 02:01 49 18 142/87 (105) 99 Mechanical Ventilator 50 03/02/17 02:00 40 03/02/17 01:01 51 18 142/86 (104) 98 Mechanical Ventilator 50 03/02/17 00:01 36.6 54 18 132/78 (96) 99 Mechanical Ventilator 50 03/01/17 23:59 50 03/01/17 23:59 Mechanical Ventilator 50 03/01/17 23:01 54 18 142/90 (107) 99 Mechanical Ventilator 50 03/01/17 22:30 57 18 135/80 (98) 99 Mechanical Ventilator 50 03/01/17 22:25 50 03/01/17 22:01 51 18 142/82 (102) 100 Mechanical Ventilator 50 03/01/17 21:01 56 18 130/78 (95) 100 Mechanical Ventilator 60 03/01/17 20:01 36.6 51 18 139/77 (97) 99 Mechanical Ventilator 60 03/01/17 20:00 60 03/01/17 20:00 Mechanical Ventilator 60 03/01/17 19:55 60 03/01/17 19:01 51 18 132/78 (96) 99 Mechanical Ventilator 80 03/01/17 18:30 100 03/01/17 18:01 36.9 56 18 145/90 (108) 100 Mechanical Ventilator 100 03/01/17 17:01 54 18 150/87 (108) 100 Mechanical Ventilator 100 03/01/17 16:01 36.6 57 18 140/82 (101) 99 Mechanical Ventilator 100 03/01/17 16:00 Mechanical Ventilator 40 03/01/17 16:00 100 Laboratory Results: Last 24 Hours Test 03/01/17 18:04 03/01/17 20:07 03/01/17 23:57 03/02/17 05:36 Bedside Glucose 117 mg/dl 104 mg/dl 108 mg/dl White Blood Count 7.65 K/uL Red Blood Count 4.00 M/uL Hemoglobin 11.8 g/dL Hematocrit 37.0 % Mean Corpuscular Volume 92.5 fL Mean Corpuscular Hemoglobin 29.5 pg Mean Corpuscular Hemoglobin Concent 31.9 g/dl Platelet Count 223 K/uL Mean Platelet Volume 10.2 fL Neutrophils (%) (Auto) 86.3 % Lymphocytes (%) (Auto) 6.9 % Monocytes (%) (Auto) 6.7 % Eosinophils (%) (Auto) 0.0 % Basophils (%) (Auto) 0.0 % Neutrophils # (Auto) 6.60 K/uL Lymphocytes # (Auto) 0.53 K/uL Monocytes # (Auto) 0.51 K/uL Eosinophils # (Auto) 0.00 K/uL Basophils # (Auto) 0.00 K/uL RDW Standard Deviation 52.2 fL RDW Coefficient of Variation 15.4 % Immature Granulocyte % (Auto) 0.1 % Immature Granulocyte # (Auto) 0.01 K/uL Sodium Level 138 mmol/L Potassium Level 4.0 mmol/L Chloride Level 108 mmol/L Carbon Dioxide Level 24 mmol/L Anion Gap 6.0 mmol/L Blood Urea Nitrogen 14 mg/dl Creatinine 0.62 mg/dl Est Creatinine Clear Calc Drug Dose 125.6 ml/min Estimated GFR () 124.5 Estimated GFR (Non- 107.4 BUN/Creatinine Ratio 22.5 Random Glucose 111 mg/dl Calcium Level 7.0 mg/dl Phosphorus Level 2.4 mg/dl Magnesium Level 2.9 mg/dl Test 03/02/17 06:02 Bedside Glucose 107 mg/dl
[2017-03-02] MEDS: OLANZAPINE ZYDIS 5 MG ORALLY DIS. TAB PO SCH (21:38)
[2017-03-02] MEDS: PRAVASTATIN SOD 20 MG TAB PO SCH (21:39)
[2017-03-02] MEDS ORDERED: FENTANYL 1250MCG/250ML NSS 250 ML IV PRN (23:30)
[2017-03-03] VITALS (17 sets, daily range): BP systolic 85–176; BP diastolic 49–163; PULSE 55–80; TEMP 36.8–37.2; O2SAT 96–98
[2017-03-03] MEDS ORDERED: MIDAZOLAM HCL 5 MG/ML 1 ML VIAL IV STA (01:10)
[2017-03-03] MEDS ORDERED: MIDAZOLAM HCL 5 MG/ML 1 ML VIAL ONE (01:19)
[2017-03-03 05:51] LABS: COMPLETE YES; HEMATOCRIT 35.6 % (37-47); IG% 0.3 %; LYMPH % 5.2 %; LYMPH ABS # 0.53 K/uL (1.2-3.4); MEAN CORPUSCULAR HEMOGLOBIN 29.4 pg (25-34); MEAN CORPUSCULAR HGB CONC 32.3 g/dl (32-36); MEAN PLATELET VOLUME 10.3 fL (7.4-10.4); MONO % 8.7 %; NEUT % 85.8 %; PLATELET COUNT 219 K/uL (130-400); RED BLOOD COUNT 3.91 M/uL (4.2-5.4); WHITE BLOOD COUNT 10.18 K/uL (4.8-10.8)
[2017-03-03] MEDS: INSULIN ASPART 100 UNITS/ML 3 ML PEN SC SCH ×4 (06:00→18:00)
[2017-03-03] MEDS: CEFEPIME IV 2,000 MG in SYRINGE 7.5 ML IV SCH ×3 (06:09→21:00)
[2017-03-03 06:24] LABS: CALCIUM 7.4 mg/dl (8.5-10.1); CREATININE 0.67 mg/dl (0.60-1.20); MAGNESIUM 2.7 mg/dl (1.8-2.4); PHOSPHORUS 2.8 mg/dl (2.5-4.9); POTASSIUM 3.4 mmol/L (3.5-5.1)
[2017-03-03] MEDS ORDERED: NURSING VERBAL MED ORDER ONE (07:00)
[2017-03-03] MEDS: POTASSIUM CHLORIDE 20 MEQ/15 ML UDC PO SCH ×3 (07:39→15:50)
[2017-03-03] MEDS: METHYLPREDNISOLONE IV 40 MG in SYRINGE 0 ML IV SCH ×2 (07:40→20:51)
[2017-03-03] MEDS: SERTRALINE HCL 50 MG TAB PO SCH (07:40)
[2017-03-03] MEDS: OLANZAPINE ZYDIS 5 MG ORALLY DIS. TAB PO SCH ×2 (07:41→20:59)
[2017-03-03] MEDS: HEPARIN SOD 5000 UNIT/0.5 ML CARP SQ SCH ×2 (07:41→21:10)
[2017-03-03] MEDS: CLONAZEPAM 0.5 MG TAB PO SCH ×3 (07:43→20:51)
--- NOTE | 2017-03-03 07:48 | DIAGNOSTIC IMAGING REPORT ---
CHEST ONE VIEW PORTABLE CLINICAL HISTORY: pna pneumonitis COMPARISON STUDY: 03/02/2017 FINDINGS: Endotracheal tube 2.5 cm by the stan. Mild stable cardiomegaly. Unchanging consolidative infiltrate left base. Atelectatic/infiltrative change of right perihilar region unchanged. IMPRESSION: No change from the prior exam. Unaltered parenchymal changes. Endotracheal tube 2.5 cm above the stan. The above report was generated using voice recognition software. It may contain grammatical, syntax or spelling errors. Electronically signed by: Sharif Rodgers M.D. 03/03/2017 7:47 AM Dictated Date/Time: 03/03/2017 7:46 AM
[2017-03-03] MEDS ORDERED: FENTANYL CITRATE INJ 50 MCG/1 ML 2 ML VIAL IV PRN (08:15)
[2017-03-03] MEDS ORDERED: POTASSIUM CHLORIDE 20 MEQ/15 ML UDC PO ONE (08:45)
[2017-03-03 09:52] LABS: ISTAT ALLEN TEST Pass; ISTAT ARTERIAL BLOOD GAS HCO3 26 meq/L (19-24); ISTAT ARTERIAL BLOOD GAS PCO2 48 mmHg (35-46); ISTAT ARTERIAL BLOOD GAS PO2 146 mmHg (80-95); ISTAT ARTERIAL BLOOD GAS pH 7.33 (7.35-7.45); ISTAT CARBON DIOXIDE 27 mEq/l (24-31); ISTAT DELIVERY SYSTEM Ventilator; ISTAT FIO2 40 %; ISTAT PEEP 10; ISTAT RATE 20; ISTAT SITE R Radial
--- NOTE | 2017-03-03 10:19 | Clinical Documentation Query ---
CLINICAL DOCUMENTATION QUERY 46 year old female who presents to the Emergency Room with lethargy and difficulty breathing. Patient found to have lipoid pneumonia/aspiration pneumonia. She presented mildly leukocytotic 11.46, with +serum lactic acid of 3.12, hypoxic 82%, hypotensive 87/47, and hypothermic 36.1 rectally. In your clinical opinion is this patient being managed for: ( ) Sepsis POA admission in setting of aspiration/lipoid pneumonia treated with volume resuscitation, IV Solumedrol, Mechanical ventilation, and IV antibiotics. ( + ) Not Agree Did not meet the criteria on admission on Feb.Admitted with Respiratory failure ( ) Other explanation of clinical findings (Please Explain) ( ) Unable to determine (Please Define) ( ) Need to Discuss The medical record reflects the following clinical findings, treatment, and risk factors. Clinical Indicators: As above. 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 Terms such as "probable", "suspected", "likely", "questionable", "possible", or "still to be ruled out" are acceptable. IF IN AGREEMENT, YOU MUST DOCUMENT ABOVE DIAGNOSTIC STATEMENT IN DAILY PROGRESS NOTES AND DISCHARGE SUMMARY. This document is not part of the patient's record. Thank You, Amadou Jones, RN [phone]
--- NOTE | 2017-03-03 10:20 | Clinical Documentation Query ---
CLINICAL DOCUMENTATION QUERY 46 year old female who presents to the Emergency Room with lethargy and difficulty breathing. Patient found to have lipoid pneumonia/aspiration pneumonia. She presented mildly leukocytotic 11.46, with +serum lactic acid of 3.12, hypoxic 82%, hypotensive 87/47, and hypothermic 36.1 rectally. In your clinical opinion is this patient being managed for: (x ) Sepsis POA admission in setting of aspiration/lipoid pneumonia treated with volume resuscitation, IV Solumedrol, Mechanical ventilation, and IV antibiotics. ( ) Not Agree ( ) Other explanation of clinical findings (Please Explain) ( ) Unable to determine (Please Define) ( ) Need to Discuss The medical record reflects the following clinical findings, treatment, and risk factors. Clinical Indicators: As above. 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 Terms such as "probable", "suspected", "likely", "questionable", "possible", or "still to be ruled out" are acceptable. IF IN AGREEMENT, YOU MUST DOCUMENT ABOVE DIAGNOSTIC STATEMENT IN DAILY PROGRESS NOTES AND DISCHARGE SUMMARY. This document is not part of the patient's record. Thank You, Amadou Jones RN [phone]
[2017-03-03] MEDS: PANTOprazole INJ 40 MG in SYRINGE 0 ML IV SCH (10:41)
--- NOTE | 2017-03-03 14:53 | Critical Care Progress Note ---
Critical Care Progress Note Date of Service Mar 03, 2017. Attending Dr. Vegas Subjective Review of systems is not obtainable due to the patient overall MR condition and being intubated. Her medical condition marginally improving. She is tolerating the CPAP today. Objective VSS, S1S2 RRR, lungs with diminished BS, abdomen is benign. CCE. neuro awake but does not follow commands. BL. Physical exam on 03/01/17 revealed stable vital signs, off pressors, heart examination S1-S2 regular rate and rhythm, abdomen is benign, trace edema in the periphery. Neurologically difficult to assess. On 03/02/2017, the patient continued to have difficulty adjusting to the ventilator. The patient also had episodes of hypoxia and hypercapnia. On 03/03/2017, the patient physical exam revealed stable vital signs, no JVP, heart examination S1-S2 regular rate and rhythm, bilateral rhonchi, abdomen is benign but distended, trace edema in the periphery. Neurologically difficult to assess. Current SOFA Score SOFA Score Response (Comments) Value PaO2/FiO2 (mmHg) < 400 1 SaO2 / FIO2 221 - 301 1 Platelets (x10) > 150 0 Bilirubin (mg/dL) < 1.2 0 [place] Coma Score 15 0 Level of Hypotension No Hypotension 0 Creatinine (mg/dL) < 1.2 0 Total 2 Assessment & Plan #1 acute respiratory failure, multifactorial including infectious and lipoid pneumonia as a cause as well as bronchiectasis. #2 bronchiectasis which appeared on the CT in the form of COPD rather than bronchiectasis itself to me. #3 lipoid pneumonia with mass like lesion in the right lobe and left lower lobe compromising integrity of the bronchi adjacent to it. #4 mental retardation interfering with synchrony with the ventilator. #5 constipation. #6 fluid overloaded 3.5 L. #7 left upper lobe pneumonia. Plan: #1 I will stop fentanyl 100 mics every 12 hours dose and change it to 50 mics every 1 hour as needed for agitation. #2 start the patient on CPAP trial with pressure support ventilation. Starting with 20, down to 15, down to 12 now, down to 10 at 8 PM and then pressure support ventilation at 8 starting 5 AM. #3 ABG in the morning in preparation for extubation. #4 continue with bronchodilators and regular basis not when necessary including Xopenex. #5 Lasix 40 mg IV 1 dose. #6 repeat electrolytes. #7 continue with the tube feeding. #8 continue cefepime day 4. #9 DVT and GI prophylaxis. #10 discussed with the staff and with the halfway staff in details. #11 Bowel regimen. #12 behavioral therapy started. Case discussed with the staff on rounds. Critical care time spent with the patient was 35 minutes. Consults & Procedures Consultants: none Procedures: bronch in am. Data Medications: Current Inpatient Medications Medications (Trade) Dose Ordered Sig/Kiera Route Start Time Stop Time Status Last Admin Dose Admin Miscellaneous Information ( Icu Electrolyte Replacement Protocol) 1 ea per protocol PRN N/A 02/27/17 13:15 03/06/17 13:14 Levalbuterol (Xopenex 1.25MG/ 0.5ML Neb) 1.25 mg Q4 PRN INH 02/27/17 13:15 03/29/17 13:14 Ipratropium [place] (Atrovent 0.02% 0.5MG/2.5ML Neb) 0.5 mg Q4H PRN INH 02/27/17 13:15 03/29/17 13:14 Insulin Aspart (novoLOG ASPART) SLIDING SCALE If C... Q6 SC 02/27/17 18:00 03/29/17 17:59 Glucose (Glucose 40% Gel) 15-30 GRAMS 15 GRAMS... UD PRN PO 02/27/17 13:15 03/29/17 13:14 Glucose (Glucose Chew Tab) 4-8 Tablets 4 Tabl... UD PRN PO 02/27/17 13:15 03/29/17 13:14 Dextrose (Dextrose 50% 50ML Syringe) 25-50ML OF 50% DW IV FOR... UD PRN IV 02/27/17 13:15 03/29/17 13:14 Glucagon (Glucagon Inj) 1 mg UD PRN SQ 02/27/17 13:15 03/29/17 13:14 Clonazepam (Klonopin Tab) 0.5 mg TID PO 02/27/17 21:00 03/29/17 20:59 03/03/17 14:20 0.5 MG Pravastatin Sodium (Pravachol Tab) 20 mg HS PO 02/27/17 21:00 03/29/17 20:59 03/02/17 21:39 20 MG Sertraline HCl (Zoloft Tab) 25 mg DAILY PO 02/28/17 09:00 03/30/17 08:59 03/03/17 07:40 25 MG Pantoprazole Sodium 40 mg/ Syringe 10 ml @ 5 mls/min DAILY@11 IV 02/28/17 11:00 03/30/17 10:59 03/03/17 10:41 5 MLS/MIN Cefepime HCl 2000 mg/Syringe 20 ml @ 5 mls/min Q8H IV 02/27/17 22:00 03/06/17 21:59 03/03/17 14:20 5 MLS/MIN Heparin Sodium (Porcine) (Heparin 10 Unit/ ml 5 ml Flush) 5 ml PRN PRN FLUSH 02/27/17 18:45 03/29/17 18:44 Fentanyl Citrate (Fentanyl Inj) 100 mcg Q2H PRN IV 02/28/17 01:00 03/13/17 14:59 03/02/17 23:47 100 MCG Heparin Sodium (Porcine) (Heparin Sq 5000 Unit/0.5ml) 5,000 unit Q12 SQ 03/01/17 21:00 03/31/17 20:59 03/03/17 07:41 5,000 UNIT Enteral Nutritional Formula (Peptamen Intense VHP) 1,000 ml UD PRN NG 03/02/17 10:30 04/01/17 10:29 03/02/17 13:33 1,000 ML Methylprednisolone Sodium Succinate 40 mg/Syringe 0.64 ml @ 1.5 mls/min Q12H IV 03/02/17 21:00 04/01/17 20:59 03/03/17 07:40 1.5 MLS/MIN Olanzapine (Zyprexa Zydis Od Tab) 5 mg BID PO 03/02/17 21:00 04/01/17 20:59 03/03/17 07:41 5 MG Potassium Chloride (Dalia Ciel Elix) 20 meq Q4 PO 03/03/17 08:00 03/03/17 16:01 03/03/17 11:12 20 MEQ Fentanyl Citrate (Fentanyl Inj) 50 mcg Q1HWA PRN IV 03/03/17 08:15 03/17/17 08:14 Lactulose (Chronulac Syrup) 30 gm Q6 PO 03/03/17 18:00 04/02/17 17:59 UNV I & O: 24-Hour Column 03/04/17 08:00 Intake Total 567 ml Output Total 450 ml Balance 117 ml Vital Signs: Date Time Temp Pulse Resp B/P (MAP) Pulse Ox O2 Delivery O2 Flow Rate FiO2 03/03/17 14:13 40 03/03/17 14:00 66 14 120/49 (72) 97 CPAP 40 Mechanical Ventilator 03/03/17 12:00 97 CPAP 40 03/03/17 12:00 37.0 66 10 127/67 (87) 97 CPAP 40 03/03/17 12:00 40 03/03/17 10:47 40 03/03/17 10:00 66 20 100/81 (87) 98 Mechanical Ventilator 40 03/03/17 09:45 40 03/03/17 08:00 36.8 60 20 145/81 (102) 98 Mechanical Ventilator 40 03/03/17 08:00 Mechanical Ventilator 40 03/03/17 08:00 40 03/03/17 08:00 98 Mechanical Ventilator 40 03/03/17 07:06 40 03/03/17 06:01 55 20 131/55 (80) 98 Mechanical Ventilator 03/03/17 05:25 40 03/03/17 04:01 60 20 159/84 (109) 98 Mechanical Ventilator 03/03/17 04:00 Mechanical Ventilator 40 03/03/17 04:00 40 03/03/17 03:41 63 15 148/71 (96) 97 Mechanical Ventilator 03/03/17 02:30 40 03/03/17 02:01 61 20 131/78 (95) 98 Mechanical Ventilator 03/03/17 01:00 20 156/90 (112) 98 Mechanical Ventilator 03/03/17 00:51 37.2 58 20 139/79 (99) 96 Mechanical Ventilator 03/03/17 00:01 40 03/03/17 00:01 63 20 142/78 (99) 98 Mechanical Ventilator 03/03/17 00:01 98 Mechanical Ventilator 40 03/02/17 23:05 40 03/02/17 23:01 60 20 133/72 (92) 98 Mechanical Ventilator 03/02/17 22:02 59 20 132/89 (94) 98 03/02/17 21:01 62 20 138/74 (88) 98 03/02/17 20:01 65 20 129/77 (83) 98 03/02/17 20:00 99 Mechanical Ventilator 40 03/02/17 20:00 40 03/02/17 20:00 36.9 03/02/17 19:52 40 03/02/17 19:19 75 20 146/89 (106) 98 03/02/17 18:01 56 20 133/81 (100) 99 03/02/17 17:45 40 03/02/17 17:01 55 18 154/70 (95) 95 03/02/17 16:01 48 20 142/84 (106) 99 03/02/17 16:00 98 Mechanical Ventilator 40 03/02/17 16:00 40 03/02/17 16:00 36.4 03/02/17 15:01 52 20 136/80 (107) 98 Laboratory Results: Last 24 Hours Test 03/02/17 18:27 03/03/17 00:15 03/03/17 05:09 03/03/17 05:25 Bedside Glucose 108 mg/dl 90 mg/dl 84 mg/dl White Blood Count 10.18 K/uL Red Blood Count 3.91 M/uL Hemoglobin 11.5 g/dL Hematocrit 35.6 % Mean Corpuscular Volume 91.0 fL Mean Corpuscular Hemoglobin 29.4 pg Mean Corpuscular Hemoglobin Concent 32.3 g/dl Platelet Count 219 K/uL Mean Platelet Volume 10.3 fL Neutrophils (%) (Auto) 85.8 % Lymphocytes (%) (Auto) 5.2 % Monocytes (%) (Auto) 8.7 % Eosinophils (%) (Auto) 0.0 % Basophils (%) (Auto) 0.0 % Neutrophils # (Auto) 8.73 K/uL Lymphocytes # (Auto) 0.53 K/uL Monocytes # (Auto) 0.89 K/uL Eosinophils # (Auto) 0.00 K/uL Basophils # (Auto) 0.00 K/uL RDW Standard Deviation 50.4 fL RDW Coefficient of Variation 15.1 % Immature Granulocyte % (Auto) 0.3 % Immature Granulocyte # (Auto) 0.03 K/uL Sodium Level 138 mmol/L Potassium Level 3.4 mmol/L Chloride Level 108 mmol/L Carbon Dioxide Level 26 mmol/L Anion Gap 4.0 mmol/L Blood Urea Nitrogen 20 mg/dl Creatinine 0.67 mg/dl Est Creatinine Clear Calc Drug Dose 115.5 ml/min Estimated GFR () 121.3 Estimated GFR (Non- 104.7 BUN/Creatinine Ratio 30.0 Random Glucose 108 mg/dl Calcium Level 7.4 mg/dl Phosphorus Level 2.8 mg/dl Magnesium Level 2.7 mg/dl Test 03/03/17 09:37 03/03/17 11:11 Blood Gas Sample Site R Radial Bedside Blood Gas pH (LAB) 7.33 Bedside Blood Gas pCO2 (LAB) 48 mmHg Bedside Blood Gas pO2 (LAB) 146 mmHg Bedside Blood Gas HCO3 (LAB) 26 meq/L Bedside Blood Gas Total CO2 27 mEq/l Bedside Blood Gas Base Excess (LAB) 0.0 meq/L Bedside Blood Gas O2 Saturation 99.0 % Edward Test Pass Oxygen Delivery Device Ventilator Bedside Oxygen Rate (breaths/min) 20 Bedside FiO2 40 % Blood Gas PEEP 10 Bedside Glucose 97 mg/dl
[2017-03-03] MEDS: LEVALBUTEROL 1.25MG/0.5ML NEB INH SCH ×2 (15:10→19:33)
[2017-03-03 15:17] LABS: ISTAT ARTERIAL BLOOD GAS HCO3 26 meq/L (19-24); ISTAT ARTERIAL BLOOD GAS PCO2 39 mmHg (35-46); ISTAT ARTERIAL BLOOD GAS PO2 111 mmHg (80-95); ISTAT ARTERIAL BLOOD GAS pH 7.43 (7.35-7.45); ISTAT CARBON DIOXIDE 27 mEq/l (24-31); ISTAT FIO2 40 %
[2017-03-03 15:18] LABS: ISTAT ALLEN TEST ACCEPTABLE; ISTAT DELIVERY SYSTEM Ventilator; ISTAT PEEP 10; ISTAT SAMPLE TYPE ARTERIAL; ISTAT SITE R Radial; PRESSURE 30
[2017-03-03 15:19] LABS: ISTAT SPO2 98 %
--- NOTE | 2017-03-03 15:47 | Progress Note ---
Internal Med Progress Note Date of Service: Mar 03, 2017. Provider Documentation: SUBJECTIVE: The patient was seen and examined Remains stable on VENT Desaturates during Bronchoscopy Will try to wean and extubate Remains stable on Vent -slow weaning OBJECTIVE: Vital Signs-as noted below Exam: General-Not in any distress Eyes-opening eyes ENT-Normal Neck-Supple Lungs-Clear to auscultate bilaterally Heart-Regular,no murmur Abdomen-Benign.no masses,bowel sound present Extremities-Trace edema bilaterally Neuro-Sedated on VENT Lab data as noted below. ASSESSMENT & PLAN: ACUTE HYPOXIC RESPIRATORY FAILURE: -likely secondary to RUL and BAN Pneumonia -Component of COPD-nonsmoker -patient has a history of bronchiectasis and aspiration -profound hypoxia in the ER, O2 sats in the 60s on admission -required intubation on admission 02/27; -CXR and CT suggestive of multifocal pneumonia; and -was started on Cefepime, Levaquin and Vancomycin in the ED as well as solu- medrol; now on vanco and cefepime day#3 -patient in ICU, Materials Scientist consulted, management appreciated - planning for bronchoscopy in AM w/ possible EBUS -lactic acidosis likely secondary to above -continued on IV fluids for now -failed Bronchoscopy due to desaturation -will try to wean and extubate in a day or two -Remains stable Right Perihilar and left base masses noted -Noted before -POA wants tissue diagnosis -Bronchoscopy + Biopsy -failed Started on IV Cefepime and Vanco Will take a few more days before extubation Mental Retardation Stable ELEVATED TROPONINS: -EKG suggests QT prolongation -TTE Report: essentially no wall motion abnormalities, EF 55-60% * -- Conclusions -- * The left ventricle is normal in size. * There is normal left ventricular wall thickness. * No regional wall motion abnormalities noted. * Ejection Fraction = 55-60%. * The right ventricle is normal in size and function. * There is trace tricuspid regurgitation. * Doppler findings do not suggest pulmonary hypertension. The inferior vena cava is mildly dilated -serial CM trended down DVT PROPHYLAXIS Lovenox DISPOSITION Awaited Vital Signs: Date Time Temp Pulse Resp B/P (MAP) Pulse Ox O2 Delivery O2 Flow Rate FiO2 03/03/17 14:13 40 03/03/17 14:00 66 14 120/49 (72) 97 CPAP 40 Mechanical Ventilator 03/03/17 12:00 97 CPAP 40 03/03/17 12:00 37.0 66 10 127/67 (87) 97 CPAP 40 03/03/17 12:00 40 03/03/17 10:47 40 03/03/17 10:00 66 20 100/81 (87) 98 Mechanical Ventilator 40 03/03/17 09:45 40 03/03/17 08:00 36.8 60 20 145/81 (102) 98 Mechanical Ventilator 40 03/03/17 08:00 Mechanical Ventilator 40 03/03/17 08:00 40 03/03/17 08:00 98 Mechanical Ventilator 40 03/03/17 07:06 40 03/03/17 06:01 55 20 131/55 (80) 98 Mechanical Ventilator 03/03/17 05:25 40 03/03/17 04:01 60 20 159/84 (109) 98 Mechanical Ventilator 03/03/17 04:00 Mechanical Ventilator 40 03/03/17 04:00 40 03/03/17 03:41 63 15 148/71 (96) 97 Mechanical Ventilator 03/03/17 02:30 40 03/03/17 02:01 61 20 131/78 (95) 98 Mechanical Ventilator 03/03/17 01:00 20 156/90 (112) 98 Mechanical Ventilator 03/03/17 00:51 37.2 58 20 139/79 (99) 96 Mechanical Ventilator 03/03/17 00:01 40 03/03/17 00:01 63 20 142/78 (99) 98 Mechanical Ventilator 03/03/17 00:01 98 Mechanical Ventilator 40 03/02/17 23:05 40 03/02/17 23:01 60 20 133/72 (92) 98 Mechanical Ventilator 03/02/17 22:02 59 20 132/89 (94) 98 03/02/17 21:01 62 20 138/74 (88) 98 03/02/17 20:01 65 20 129/77 (83) 98 03/02/17 20:00 99 Mechanical Ventilator 40 03/02/17 20:00 40 03/02/17 20:00 36.9 03/02/17 19:52 40 03/02/17 19:19 75 20 146/89 (106) 98 03/02/17 18:01 56 20 133/81 (100) 99 03/02/17 17:45 40 03/02/17 17:01 55 18 154/70 (95) 95 03/02/17 16:01 48 20 142/84 (106) 99 03/02/17 16:00 98 Mechanical Ventilator 40 03/02/17 16:00 40 03/02/17 16:00 36.4 Lab Results: Results Past 24 Hours Test 03/02/17 18:27 03/03/17 00:15 03/03/17 05:09 03/03/17 05:25 Range/Units Bedside Glucose 108 90 84 70-90 mg/dl White Blood Count 10.18 4.8-10.8 K/uL Red Blood Count 3.91 4.2-5.4 M/uL Hemoglobin 11.5 12.0-16.0 g/dL Hematocrit 35.6 37-47 % Mean Corpuscular Volume 91.0 80-100 fL Mean Corpuscular Hemoglobin 29.4 25-34 pg Mean Corpuscular Hemoglobin Concent 32.3 32-36 g/dl Platelet Count 219 130-400 K/uL Mean Platelet Volume 10.3 7.4-10.4 fL Neutrophils (%) (Auto) 85.8 % Lymphocytes (%) (Auto) 5.2 % Monocytes (%) (Auto) 8.7 % Eosinophils (%) (Auto) 0.0 % Basophils (%) (Auto) 0.0 % Neutrophils # (Auto) 8.73 1.4-6.5 K/uL Lymphocytes # (Auto) 0.53 1.2-3.4 K/uL Monocytes # (Auto) 0.89 0.11-0.59 K/uL Eosinophils # (Auto) 0.00 0-0.5 K/uL Basophils # (Auto) 0.00 0-0.2 K/uL RDW Standard Deviation 50.4 36.4-46.3 fL RDW Coefficient of Variation 15.1 11.5-14.5 % Immature Granulocyte % (Auto) 0.3 % Immature Granulocyte # (Auto) 0.03 0.00-0.02 K/uL Sodium Level 138 136-145 mmol/L Potassium Level 3.4 3.5-5.1 mmol/L Chloride Level 108 98-107 mmol/L Carbon Dioxide Level 26 21-32 mmol/L Anion Gap 4.0 3-11 mmol/L Blood Urea Nitrogen 20 7-18 mg/dl Creatinine 0.67 0.60-1.20 mg/dl Est Creatinine Clear Calc Drug Dose 115.5 ml/min Estimated GFR () 121.3 Estimated GFR (Non- 104.7 BUN/Creatinine Ratio 30.0 10-20 Random Glucose 108 70-99 mg/dl Calcium Level 7.4 8.5-10.1 mg/dl Phosphorus Level 2.8 2.5-4.9 mg/dl Magnesium Level 2.7 1.8-2.4 mg/dl Test 03/03/17 09:37 03/03/17 11:11 Range/Units Blood Gas Sample Site R Radial Bedside Blood Gas pH (LAB) 7.33 7.35-7.45 Bedside Blood Gas pCO2 (LAB) 48 35-46 mmHg Bedside Blood Gas pO2 (LAB) 146 80-95 mmHg Bedside Blood Gas HCO3 (LAB) 26 19-24 meq/L Bedside Blood Gas Total CO2 27 24-31 mEq/l Bedside Blood Gas Base Excess (LAB) 0.0 -9-1.8 meq/L Bedside Blood Gas O2 Saturation 99.0 90-95 % Edward Test Pass Oxygen Delivery Device Ventilator Bedside Oxygen Rate (breaths/min) 20 Bedside FiO2 40 % Blood Gas PEEP 10 Bedside Glucose 97 70-90 mg/dl
[2017-03-03] MEDS: LACTULOSE SYRUP 30 GM/45 ML UDP PO SCH (17:32)
[2017-03-03] MEDS: PRAVASTATIN SOD 20 MG TAB PO SCH (20:52)
[2017-03-03 20:54] LABS: BLOOD UREA NITROGEN 19 mg/dl (7-18); BUN/CREATININE RATIO 29.6 (10-20); CARBON DIOXIDE 20 mmol/L (21-32); CHLORIDE 109 mmol/L (98-107); CREATININE 0.64 mg/dl (0.60-1.20); GLUCOSE 98 mg/dl (70-99); SODIUM 134 mmol/L (136-145)
[2017-03-04] VITALS (21 sets, daily range): BP systolic 87–152; BP diastolic 52–87; PULSE 57–78; TEMP 36.6–36.9; O2SAT 93–98
[2017-03-04] MEDS: LACTULOSE SYRUP 30 GM/45 ML UDP PO SCH ×2 (01:00→05:17)
[2017-03-04] MEDS: LEVALBUTEROL 1.25MG/0.5ML NEB INH SCH ×4 (02:09→18:55)
[2017-03-04 03:19] LABS: BUN/CREATININE RATIO 24.2 (10-20); CALCIUM 8.1 mg/dl (8.5-10.1); CREATININE 0.68 mg/dl (0.60-1.20); MAGNESIUM 2.3 mg/dl (1.8-2.4); PHOSPHORUS 2.9 mg/dl (2.5-4.9); POTASSIUM 4.4 mmol/L (3.5-5.1)
[2017-03-04] MEDS: CEFEPIME IV 2,000 MG in SYRINGE 7.5 ML IV SCH ×3 (05:17→22:00)
[2017-03-04] MEDS: INSULIN ASPART 100 UNITS/ML 3 ML PEN SC SCH ×2 (06:00)
[2017-03-04] MEDS: CLONAZEPAM 0.5 MG TAB PO SCH ×3 (07:27→19:36)
[2017-03-04] MEDS: METHYLPREDNISOLONE IV 40 MG in SYRINGE 0 ML IV SCH ×2 (07:27→19:36)
[2017-03-04] MEDS: OLANZAPINE ZYDIS 5 MG ORALLY DIS. TAB PO SCH ×2 (07:27→19:36)
[2017-03-04] MEDS: SERTRALINE HCL 50 MG TAB PO SCH (07:27)
[2017-03-04] MEDS: HEPARIN SOD 5000 UNIT/0.5 ML CARP SQ SCH ×2 (07:28→19:38)
[2017-03-04] MEDS ORDERED: LACTULOSE SYRUP 30 GM/45 ML UDP PO PRN (08:45)
[2017-03-04 11:41] LABS: ISTAT ARTERIAL BLOOD GAS PCO2 50 mmHg (35-46); ISTAT ARTERIAL BLOOD GAS pH 7.36 (7.35-7.45)
[2017-03-04 11:42] LABS: ISTAT ARTERIAL BLOOD GAS HCO3 28 meq/L (19-24); ISTAT ARTERIAL BLOOD GAS PO2 81 mmHg (80-95); ISTAT CARBON DIOXIDE 29 mEq/l (24-31)
[2017-03-04 11:46] LABS: ISTAT ALLEN TEST ACCEPTABLE; ISTAT DELIVERY SYSTEM Ventilator; ISTAT FIO2 30 %; ISTAT SAMPLE TYPE ARTERIAL; ISTAT SITE R Radial
[2017-03-04 11:48] LABS: ISTAT PEEP 5
[2017-03-04 11:49] LABS: PRESSURE 8
--- NOTE | 2017-03-04 11:49 | Progress Note ---
Internal Med Progress Note Date of Service: Mar 04, 2017. Provider Documentation: SUBJECTIVE: The patient was seen and examined Remains stable on VENT-not sedated since yesterday Tolerated CPAP last night Try to extubate today OBJECTIVE: Vital Signs-as noted below Exam: General-Not in any distress Moderate distress at rest Eyes-opening eyes ENT-Normal Neck-Supple Lungs-Clear to auscultate bilaterally Heart-Regular,no murmur Abdomen-Benign.no masses,bowel sound present Extremities-Trace edema bilaterally Neuro-Stable on vent Holds hands Lab data as noted below. ASSESSMENT & PLAN: ACUTE HYPOXIC RESPIRATORY FAILURE: -likely secondary to RUL and BAN Pneumonia -Component of COPD-nonsmoker -patient has a history of bronchiectasis and aspiration -profound hypoxia in the ER, O2 sats in the 60s on admission -required intubation on admission 02/27; -CXR and CT suggestive of multifocal pneumonia; and -was started on Cefepime, Levaquin and Vancomycin in the ED as well as solu- medrol; now on vanco and cefepime day#3 -patient in ICU, [employer] consulted, management appreciated - planning for bronchoscopy in AM w/ possible EBUS -lactic acidosis likely secondary to above -continued on IV fluids for now -failed Bronchoscopy due to desaturation -will try to wean and extubate in a day or two -Remains stable of sedation -try to extubate today 03/04/17 Right Perihilar and left base masses noted -Noted before -POA wants tissue diagnosis -Bronchoscopy + Biopsy -failed Started on IV Cefepime and Vanco Will take a few more days before extubation Continue Cefepime for now Mental Retardation Stable ELEVATED TROPONINS: -EKG suggests QT prolongation -TTE Report: essentially no wall motion abnormalities, EF 55-60% * -- Conclusions -- * The left ventricle is normal in size. * There is normal left ventricular wall thickness. * No regional wall motion abnormalities noted. * Ejection Fraction = 55-60%. * The right ventricle is normal in size and function. * There is trace tricuspid regurgitation. * Doppler findings do not suggest pulmonary hypertension. The inferior vena cava is mildly dilated -serial CM trended down Nutrition Enteral Feeding DVT PROPHYLAXIS SQ Heparin GI prophylaxis IV Protonix DISPOSITION Awaited Family updated daily by the [employer] Vital Signs: Date Time Temp Pulse Resp B/P (MAP) Pulse Ox O2 Delivery O2 Flow Rate FiO2 03/04/17 11:22 67 20 96 Mask 4.0 03/04/17 10:01 73 16 142/83 (102) 97 Oxymask 6.0 03/04/17 09:01 76 17 136/87 (103) 94 CPAP 30 03/04/17 08:01 36.9 73 10 140/74 (96) 95 CPAP 30 03/04/17 08:00 CPAP 40 03/04/17 08:00 30 03/04/17 08:00 CPAP 30 Mechanical Ventilator 03/04/17 07:11 30 03/04/17 07:01 75 11 138/84 (102) 95 CPAP 30 03/04/17 06:01 75 10 139/80 (99) 94 CPAP 30 03/04/17 05:11 78 11 140/85 (103) 97 CPAP 40 03/04/17 05:10 40 03/04/17 04:00 36.9 11 87/53 (64) 93 CPAP 40 03/04/17 04:00 40 03/04/17 04:00 CPAP 40 03/04/17 03:00 68 11 123/62 (82) 97 CPAP 40 03/04/17 02:10 40 03/04/17 02:00 36.8 75 8 124/79 (94) 98 CPAP 40 03/04/17 01:00 70 8 152/75 (100) 97 CPAP 40 03/04/17 00:05 40 03/04/17 00:05 CPAP 40 03/04/17 00:02 70 8 137/52 (80) 96 CPAP 40 03/03/17 23:35 40 03/03/17 23:01 78 11 85/62 (70) 97 CPAP 40 03/03/17 22:01 36.8 75 8 124/55 (78) 97 CPAP 40 03/03/17 21:45 40 03/03/17 21:01 80 8 176/162 (167) 96 CPAP 40 03/03/17 20:01 76 7 175/163 (167) 98 CPAP 40 03/03/17 20:00 40 03/03/17 20:00 CPAP 40 03/03/17 19:36 40 03/03/17 18:00 69 10 106/58 (74) 97 CPAP 40 03/03/17 17:17 40 03/03/17 16:00 36.9 68 9 119/77 (91) 96 Mechanical Ventilator 40 03/03/17 16:00 40 03/03/17 16:00 96 CPAP 40 03/03/17 14:13 40 03/03/17 14:00 66 14 120/49 (72) 97 CPAP 40 Mechanical Ventilator 03/03/17 12:00 97 CPAP 40 03/03/17 12:00 37.0 66 10 127/67 (87) 97 CPAP 40 03/03/17 12:00 40 Lab Results: Results Past 24 Hours Test 03/03/17 17:38 03/03/17 19:54 03/03/17 21:55 03/04/17 00:26 Range/Units Bedside Glucose 97 100 70-90 mg/dl Sodium Level 134 136-145 mmol/L Potassium Level 4.2 3.5-5.1 mmol/L Chloride Level 109 98-107 mmol/L Carbon Dioxide Level 20 21-32 mmol/L Anion Gap 6.0 3-11 mmol/L Blood Urea Nitrogen 19 7-18 mg/dl Creatinine 0.64 0.60-1.20 mg/dl Est Creatinine Clear Calc Drug Dose 120.9 ml/min Estimated GFR () 123.2 Estimated GFR (Non- 106.3 BUN/Creatinine Ratio 29.6 10-20 Random Glucose 98 70-99 mg/dl Calcium Level 8.0 8.5-10.1 mg/dl Test 03/04/17 02:51 03/04/17 06:12 03/04/17 08:42 Range/Units Sodium Level 136 136-145 mmol/L Potassium Level 4.4 3.5-5.1 mmol/L Chloride Level 106 98-107 mmol/L Carbon Dioxide Level 26 21-32 mmol/L Anion Gap 4.0 3-11 mmol/L Blood Urea Nitrogen 17 7-18 mg/dl Creatinine 0.68 0.60-1.20 mg/dl Est Creatinine Clear Calc Drug Dose 113.8 ml/min Estimated GFR () 120.7 Estimated GFR (Non- 104.2 BUN/Creatinine Ratio 24.2 10-20 Random Glucose 106 70-99 mg/dl Calcium Level 8.1 8.5-10.1 mg/dl Phosphorus Level 2.9 2.5-4.9 mg/dl Magnesium Level 2.3 1.8-2.4 mg/dl Bedside Glucose 93 70-90 mg/dl
[2017-03-04 11:50] LABS: ISTAT SPO2 94 %
[2017-03-04] MEDS: PEPTAMEN INTENSE VHP 1000ML BAG NG PRN (12:13)
[2017-03-04] MEDS: PANTOprazole INJ 40 MG in SYRINGE 0 ML IV SCH (12:13)
--- NOTE | 2017-03-04 17:24 | Critical Care Progress Note ---
Critical Care Progress Note Date of Service Mar 04, 2017. Attending Dr. Vegas Subjective No events overnight, the patient remains on CPAP overnight, today in the morning she was extubated successfully. NG tube kept in place for feeding and medications. Review of systems not obtainable from the patient due to her mental retardation. Objective VSS, S1S2 RRR, lungs with diminished BS, abdomen is benign. CCE. neuro awake but does not follow commands. BL. Physical exam on 03/01/17 revealed stable vital signs, off pressors, heart examination S1-S2 regular rate and rhythm, abdomen is benign, trace edema in the periphery. Neurologically difficult to assess. On 03/02/2017, the patient continued to have difficulty adjusting to the ventilator. The patient also had episodes of hypoxia and hypercapnia. On 03/03/2017, the patient physical exam revealed stable vital signs, no JVP, heart examination S1-S2 regular rate and rhythm, bilateral rhonchi, abdomen is benign but distended, trace edema in the periphery. Neurologically difficult to assess. On 03/04/2017, the patient physical exam revealed stable vital signs, she has rhonchi bilaterally, heart examination S1-S2 regular rate and rhythm, abdomen is benign, she has trace edema in the periphery. Current SOFA Score SOFA Score Response (Comments) Value PaO2/FiO2 (mmHg) < 400 1 SaO2 / FIO2 221 - 301 1 Platelets (x10) > 150 0 Bilirubin (mg/dL) < 1.2 0 Maye Coma Score 15 0 Level of Hypotension No Hypotension 0 Creatinine (mg/dL) < 1.2 0 Total 2 Assessment & Plan #1 acute respiratory failure, hypoxic and hypercapnic. #2 bilateral lipoid pneumonia. #3 left upper lobe infectious pneumonia, healthcare acquired mainly. 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 #5 constipation, resolved. Plan: #1 extubated the patient to aerosol. #2 keep bronchodilators. #3 the patient is nothing by mouth according to swallow team as she has been extubated and she will continue to be nothing by mouth for 24 hours post extubation. #4 continue cefepime. #5 which gave a G-tube in place and continue with her tube feeding. #6 DVT and GI prophylaxis. #7 no treatment for lipoid pneumonia. #8 continue with Zyprexa. #9. Zoloft low-dose. #10. Doxepin. #11 physical therapy in the morning. #12 change lactulose to as needed. Case discussed with the staff and with the retirement staff at the bedside. Critical care time spent with the patient was 45 minutes. Consults & Procedures Consultants: none Procedures: bronch in am. Data Medications: Current Inpatient Medications Medications (Trade) Dose Ordered Sig/Kiera Route Start Time Stop Time Status Last Admin Dose Admin Miscellaneous Information ( Icu Electrolyte Replacement Protocol) 1 ea per protocol PRN N/A 02/27/17 13:15 03/06/17 13:14 Ipratropium [place] (Atrovent 0.02% 0.5MG/2.5ML Neb) 0.5 mg Q4H PRN INH 02/27/17 13:15 03/29/17 13:14 Glucose (Glucose 40% Gel) 15-30 GRAMS 15 GRAMS... UD PRN PO 02/27/17 13:15 03/29/17 13:14 Glucose (Glucose Chew Tab) 4-8 Tablets 4 Tabl... UD PRN PO 02/27/17 13:15 03/29/17 13:14 Dextrose (Dextrose 50% 50ML Syringe) 25-50ML OF 50% DW IV FOR... UD PRN IV 02/27/17 13:15 03/29/17 13:14 Glucagon (Glucagon Inj) 1 mg UD PRN SQ 02/27/17 13:15 03/29/17 13:14 Clonazepam (Klonopin Tab) 0.5 mg TID PO 02/27/17 21:00 03/29/17 20:59 03/04/17 14:38 0.5 MG Pravastatin Sodium (Pravachol Tab) 20 mg HS PO 02/27/17 21:00 03/29/17 20:59 03/03/17 20:52 20 MG Pantoprazole Sodium 40 mg/ Syringe 10 ml @ 5 mls/min DAILY@11 IV 02/28/17 11:00 03/30/17 10:59 03/04/17 12:13 5 MLS/MIN Cefepime HCl 2000 mg/Syringe 20 ml @ 5 mls/min Q8H IV 02/27/17 22:00 03/06/17 21:59 03/04/17 14:38 5 MLS/MIN Heparin Sodium (Porcine) (Heparin 10 Unit/ ml 5 ml Flush) 5 ml PRN PRN FLUSH 02/27/17 18:45 03/29/17 18:44 Heparin Sodium (Porcine) (Heparin Sq 5000 Unit/0.5ml) 5,000 unit Q12 SQ 03/01/17 21:00 03/31/17 20:59 03/04/17 07:28 5,000 UNIT Enteral Nutritional Formula (Peptamen Intense VHP) 1,000 ml UD PRN NG 03/02/17 10:30 04/01/17 10:29 03/04/17 12:13 1,000 ML Methylprednisolone Sodium Succinate 40 mg/Syringe 0.64 ml @ 1.5 mls/min Q12H IV 03/02/17 21:00 04/01/17 20:59 03/04/17 07:27 1.5 MLS/MIN Olanzapine (Zyprexa Zydis Od Tab) 5 mg BID PO 03/02/17 21:00 04/01/17 20:59 03/04/17 07:27 5 MG Fentanyl Citrate (Fentanyl Inj) 50 mcg Q1HWA PRN IV 03/03/17 08:15 03/17/17 08:14 Levalbuterol (Xopenex 1.25MG/ 0.5ML Neb) 1.25 mg Q6R INH 03/03/17 15:00 04/02/17 14:59 03/04/17 14:22 1.25 MG Lactulose (Chronulac Syrup) 30 gm Q6 PRN PO 03/04/17 08:45 04/03/17 08:44 I & O: 24-Hour Column 03/05/17 07:59 Intake Total 85 ml Output Total 1450 ml Balance -1365 ml Vital Signs: Date Time Temp Pulse Resp B/P (MAP) Pulse Ox O2 Delivery O2 Flow Rate FiO2 03/04/17 16:00 Nasal Cannula 2.0 03/04/17 16:00 36.8 63 12 137/71 (93) 94 Nasal Cannula 2.0 03/04/17 14:22 72 20 96 Nasal Cannula 2.0 03/04/17 14:00 71 15 143/79 (100) 96 Nasal Cannula 2.0 03/04/17 12:01 36.6 74 21 145/82 (103) 96 Oxymask 4.0 03/04/17 12:00 Oxymask 4.0 03/04/17 11:22 67 20 96 Mask 4.0 03/04/17 10:01 73 16 142/83 (102) 97 Oxymask 6.0 03/04/17 09:01 76 17 136/87 (103) 94 CPAP 30 03/04/17 08:01 36.9 73 10 140/74 (96) 95 CPAP 30 03/04/17 08:00 CPAP 40 03/04/17 08:00 30 03/04/17 08:00 CPAP 30 Mechanical Ventilator 03/04/17 07:11 30 03/04/17 07:01 75 11 138/84 (102) 95 CPAP 30 03/04/17 06:01 75 10 139/80 (99) 94 CPAP 30 03/04/17 05:11 78 11 140/85 (103) 97 CPAP 40 03/04/17 05:10 40 03/04/17 04:00 36.9 11 87/53 (64) 93 CPAP 40 03/04/17 04:00 40 03/04/17 04:00 CPAP 40 03/04/17 03:00 68 11 123/62 (82) 97 CPAP 40 03/04/17 02:10 40 03/04/17 02:00 36.8 75 8 124/79 (94) 98 CPAP 40 03/04/17 01:00 70 8 152/75 (100) 97 CPAP 40 03/04/17 00:05 40 03/04/17 00:05 CPAP 40 03/04/17 00:02 70 8 137/52 (80) 96 CPAP 40 03/03/17 23:35 40 03/03/17 23:01 78 11 85/62 (70) 97 CPAP 40 03/03/17 22:01 36.8 75 8 124/55 (78) 97 CPAP 40 03/03/17 21:45 40 03/03/17 21:01 80 8 176/162 (167) 96 CPAP 40 03/03/17 20:01 76 7 175/163 (167) 98 CPAP 40 03/03/17 20:00 40 03/03/17 20:00 CPAP 40 03/03/17 19:36 40 03/03/17 18:00 69 10 106/58 (74) 97 CPAP 40 Laboratory Results: Last 24 Hours Test 03/03/17 17:38 03/03/17 19:54 03/03/17 21:55 03/04/17 00:26 Bedside Glucose 97 mg/dl 100 mg/dl Sodium Level 134 mmol/L Potassium Level mmol/L 4.2 mmol/L Chloride Level 109 mmol/L Carbon Dioxide Level 20 mmol/L Anion Gap 6.0 mmol/L Blood Urea Nitrogen 19 mg/dl Creatinine 0.64 mg/dl Est Creatinine Clear Calc Drug Dose 120.9 ml/min Estimated GFR () 123.2 Estimated GFR (Non- 106.3 BUN/Creatinine Ratio 29.6 Random Glucose 98 mg/dl Calcium Level 8.0 mg/dl Test 03/04/17 02:51 03/04/17 06:12 03/04/17 08:42 Sodium Level 136 mmol/L Potassium Level 4.4 mmol/L Chloride Level 106 mmol/L Carbon Dioxide Level 26 mmol/L Anion Gap 4.0 mmol/L Blood Urea Nitrogen 17 mg/dl Creatinine 0.68 mg/dl Est Creatinine Clear Calc Drug Dose 113.8 ml/min Estimated GFR () 120.7 Estimated GFR (Non- 104.2 BUN/Creatinine Ratio 24.2 Random Glucose 106 mg/dl Calcium Level 8.1 mg/dl Phosphorus Level 2.9 mg/dl Magnesium Level 2.3 mg/dl Bedside Glucose 93 mg/dl Blood Gas Specimen Type ARTERIAL Blood Gas Sample Site R Radial Blood Gas Patient Temperature 36.9 Bedside Blood Gas pH (LAB) 7.36 Bedside Blood Gas pCO2 (LAB) 50 mmHg Bedside Blood Gas pO2 (LAB) 81 mmHg Bedside Blood Gas HCO3 (LAB) 28 meq/L Bedside Blood Gas Total CO2 29 mEq/l Bedside Blood Gas Base Excess (LAB) 2.0 meq/L Bedside Blood Gas O2 Saturation 95.0 % Oxygen Saturation (Pulse Oximetry) 94 % Edward Test ACCEPTABLE Oxygen Delivery Device Ventilator Bedside FiO2 30 % Blood Gas PEEP 5 Blood Gas Pressure Support 8
[2017-03-04] MEDS: PRAVASTATIN SOD 20 MG TAB PO SCH (19:36)
[2017-03-05] VITALS (23 sets, daily range): BP systolic 96–160; BP diastolic 46–95; PULSE 65–88; TEMP 36.7–37.1; O2SAT 92–99
[2017-03-05] MEDS: LEVALBUTEROL 1.25MG/0.5ML NEB INH SCH ×2 (01:58→07:00)
[2017-03-05 06:04] LABS: COMPLETE YES; EOS % 0.2 %; HEMATOCRIT 39.1 % (37-47); IG% 0.4 %; LYMPH % 13.2 %; LYMPH ABS # 1.33 K/uL (1.2-3.4); MEAN CELL VOLUME 91.4 fL (80-100); MEAN CORPUSCULAR HGB CONC 31.7 g/dl (32-36); MONO % 13.1 %; NEUT % 73.1 %; PLATELET COUNT 272 K/uL (130-400); RED BLOOD COUNT 4.28 M/uL (4.2-5.4); WHITE BLOOD COUNT 10.05 K/uL (4.8-10.8)
[2017-03-05] MEDS: CEFEPIME IV 2,000 MG in SYRINGE 7.5 ML IV SCH ×3 (06:26→22:24)
[2017-03-05 06:31] LABS: BUN/CREATININE RATIO 32.4 (10-20); CALCIUM 8.8 mg/dl (8.5-10.1); CREATININE 0.61 mg/dl (0.60-1.20); POTASSIUM 4.2 mmol/L (3.5-5.1)
[2017-03-05 06:32] LABS: PHOSPHORUS 3.3 mg/dl (2.5-4.9)
--- NOTE | 2017-03-05 08:27 | DIAGNOSTIC IMAGING REPORT ---
CHEST ONE VIEW PORTABLE HISTORY: Pneumonia. Follow-up. COMPARISON: Chest 03/03/2017. FINDINGS: The endotracheal tube is been removed. No pneumothorax. Nasogastric tube terminates below the diaphragm. The heart is stable in size. There is mild central pulmonary vascular congestion without overt edema. Right middle lobe and left lung base airspace opacities persist. The upper lung zones remain clear. IMPRESSION: 1. No change in the right middle lobe and left lung base airspace opacities. 2. The endotracheal tube has been removed. 3. Nasogastric tube terminates below the diaphragm. Electronically signed by: Berhane Brown M.D. 03/05/2017 8:25 AM Dictated Date/Time: 03/05/2017 8:23 AM
[2017-03-05] MEDS: LANSOPRAZOLE SOLUTAB 30 MG PO SCH (09:08)
[2017-03-05] MEDS: OLANZAPINE ZYDIS 5 MG ORALLY DIS. TAB PO SCH ×2 (09:08→20:00)
[2017-03-05] MEDS: CLONAZEPAM 0.5 MG TAB PO SCH ×3 (09:09→20:00)
[2017-03-05] MEDS: METHYLPREDNISOLONE IV 40 MG in SYRINGE 0 ML IV SCH ×2 (09:09→20:00)
[2017-03-05] MEDS: HEPARIN SOD 5000 UNIT/0.5 ML CARP SQ SCH ×2 (09:10→20:01)
--- NOTE | 2017-03-05 10:35 | Critical Care Progress Note ---
Critical Care Progress Note Date of Service Mar 05, 2017. Attending Dr. Ascencion Copeland The patient is clinically improving, she is currently on nasal cannula, saturations 96%, awaiting swallow eval today. The patient continued to have NG tube feeding, the patient cannot provide review of system. Objective VSS, S1S2 RRR, lungs with diminished BS, abdomen is benign. CCE. neuro awake but does not follow commands. BL. Physical exam on 03/01/17 revealed stable vital signs, off pressors, heart examination S1-S2 regular rate and rhythm, abdomen is benign, trace edema in the periphery. Neurologically difficult to assess. On 03/02/2017, the patient continued to have difficulty adjusting to the ventilator. The patient also had episodes of hypoxia and hypercapnia. On 03/03/2017, the patient physical exam revealed stable vital signs, no JVP, heart examination S1-S2 regular rate and rhythm, bilateral rhonchi, abdomen is benign but distended, trace edema in the periphery. Neurologically difficult to assess. On 03/04/2017, the patient physical exam revealed stable vital signs, she has rhonchi bilaterally, heart examination S1-S2 regular rate and rhythm, abdomen is benign, she has trace edema in the periphery. On 03/05/2017, the patient physical exam showed stable vital signs, off the ventilator, no stridor, minimal crackles at the bases, heart examination S1-S2 regular rate and rhythm, abdomen is slightly distended but nontender, minimal edema in the periphery. Neurologic the patient difficult to assess. Current SOFA Score SOFA Score Response (Comments) Value PaO2/FiO2 (mmHg) < 400 1 SaO2 / FIO2 221 - 301 1 Platelets (x10) > 150 0 Bilirubin (mg/dL) < 1.2 0 [place] Coma Score 15 0 Level of Hypotension No Hypotension 0 Creatinine (mg/dL) < 1.2 0 Total 2 Assessment & Plan All her labs and x-rays has been reviewed. Assessment and plan: #1 acute respiratory failure, hypoxic, hypercapnic, responded to the treatment currently extubated. #2 lipoid pneumonia, stable. #3 obstructive lung disease in the form of bronchiectasis. Has been stable. Currently on the twice daily Solu-Medrol. #4 left upper lobe pneumonia resolving. #5 constipation resolved. #6 mental retardation. Plan: #1 I have reviewed her chest x-ray by ilia which showed significant improvement in the left upper lobe infiltrate and the pulmonary vascular congestion. #21 ask speech pathology to better the patient for swallowing. #3 the patient will continue on Solu-Medrol 40 mg IV every 12 hours for 7 days and then stop it. #4 cefepime is completing 7 days course and can be stopped in the morning. #5 I will stop fentanyl. #6 continue with DVT prophylaxis. #7 no skin issues in this patient. #8 case discussed with the family and with the care group on a daily basis. #9 case discussed with the staff on [place] details. #10 patient can be transferred to regular floor. Case discussed with Dr. joel, appreciate his input. Critical care time spent with the patient was 35 minutes. Consults & Procedures Consultants: none Procedures: bronch in am. Data Medications: Current Inpatient Medications Medications (Trade) Dose Ordered Sig/Kiera Route Start Time Stop Time Status Last Admin Dose Admin Clonazepam (Klonopin Tab) 0.5 mg TID PO 02/27/17 21:00 03/29/17 20:59 03/05/17 09:09 0.5 MG Pravastatin Sodium (Pravachol Tab) 20 mg HS PO 02/27/17 21:00 03/29/17 20:59 03/04/17 19:36 20 MG Cefepime HCl 2000 mg/Syringe 20 ml @ 5 mls/min Q8H IV 02/27/17 22:00 03/06/17 21:59 03/05/17 06:26 5 MLS/MIN Heparin Sodium (Porcine) (Heparin 10 Unit/ ml 5 ml Flush) 5 ml PRN PRN FLUSH 02/27/17 18:45 03/29/17 18:44 Heparin Sodium (Porcine) (Heparin Sq 5000 Unit/0.5ml) 5,000 unit Q12 SQ 03/01/17 21:00 03/31/17 20:59 03/05/17 09:10 5,000 UNIT Enteral Nutritional Formula (Peptamen Intense VHP) 1,000 ml UD PRN NG 03/02/17 10:30 04/01/17 10:29 03/04/17 12:13 1,000 ML Methylprednisolone Sodium Succinate 40 mg/Syringe 0.64 ml @ 1.5 mls/min Q12H IV 03/02/17 21:00 04/01/17 20:59 03/05/17 09:09 1.5 MLS/MIN Olanzapine (Zyprexa Zydis Od Tab) 5 mg BID PO 03/02/17 21:00 04/01/17 20:59 03/05/17 09:08 5 MG Lactulose (Chronulac Syrup) 30 gm Q6 PRN PO 03/04/17 08:45 04/03/17 08:44 Lansoprazole (Prevacid Solutab) 30 mg QAM PO 03/05/17 09:00 03/09/17 08:59 03/05/17 09:08 30 MG Albuterol/ Ipratropium (Duoneb) 3 ml QIDR INH 03/05/17 12:00 04/04/17 11:59 Vital Signs: Date Time Temp Pulse Resp B/P (MAP) Pulse Ox O2 Delivery O2 Flow Rate FiO2 03/05/17 10:01 72 14 151/75 (100) 94 Nasal Cannula 2.0 03/05/17 09:07 69 21 144/81 (102) 94 Nasal Cannula 2.0 03/05/17 08:02 36.9 76 13 96/46 (63) 94 Nasal Cannula 2.0 03/05/17 08:00 Nasal Cannula 2.0 03/05/17 07:01 72 14 124/61 (82) 99 Nasal Cannula 2.0 03/05/17 07:01 71 16 95 Nasal Cannula 2.0 03/05/17 06:01 72 18 138/67 (90) 94 Nasal Cannula 2.0 03/05/17 05:01 73 20 132/86 (101) 94 Nasal Cannula 2.0 03/05/17 04:01 37.0 74 16 138/61 (86) 95 Nasal Cannula 2.0 03/05/17 04:00 Nasal Cannula 2.0 03/05/17 03:01 84 18 134/70 (91) 94 Nasal Cannula 2.0 03/05/17 02:02 76 15 128/95 (106) 97 Nasal Cannula 2.0 03/05/17 01:58 70 18 95 Nasal Cannula 2.0 03/05/17 01:27 76 14 133/84 (100) 94 Nasal Cannula 2.0 03/05/17 00:01 Nasal Cannula 2.0 03/05/17 00:01 37.1 65 14 113/64 (80) 94 Nasal Cannula 2.0 03/04/17 23:01 62 11 125/68 (87) 94 Nasal Cannula 2.0 03/04/17 22:00 65 14 109/65 (80) 94 Nasal Cannula 2.0 03/04/17 20:00 36.8 71 22 146/81 (102) 94 Nasal Cannula 2.0 03/04/17 20:00 Nasal Cannula 2.0 03/04/17 18:55 57 12 94 Nasal Cannula 2.0 03/04/17 18:00 59 13 120/63 (82) 95 Nasal Cannula 2.0 03/04/17 16:00 Nasal Cannula 2.0 03/04/17 16:00 36.8 63 12 137/71 (93) 94 Nasal Cannula 2.0 03/04/17 14:22 72 20 96 Nasal Cannula 2.0 03/04/17 14:00 71 15 143/79 (100) 96 Nasal Cannula 2.0 03/04/17 12:01 36.6 74 21 145/82 (103) 96 Oxymask 4.0 03/04/17 12:00 Oxymask 4.0 03/04/17 11:22 67 20 96 Mask 4.0 Laboratory Results: Last 24 Hours Test 03/05/17 05:39 White Blood Count 10.05 K/uL Red Blood Count 4.28 M/uL Hemoglobin 12.4 g/dL Hematocrit 39.1 % Mean Corpuscular Volume 91.4 fL Mean Corpuscular Hemoglobin 29.0 pg Mean Corpuscular Hemoglobin Concent 31.7 g/dl Platelet Count 272 K/uL Mean Platelet Volume 10.0 fL Neutrophils (%) (Auto) 73.1 % Lymphocytes (%) (Auto) 13.2 % Monocytes (%) (Auto) 13.1 % Eosinophils (%) (Auto) 0.2 % Basophils (%) (Auto) 0.0 % Neutrophils # (Auto) 7.34 K/uL Lymphocytes # (Auto) 1.33 K/uL Monocytes # (Auto) 1.32 K/uL Eosinophils # (Auto) 0.02 K/uL Basophils # (Auto) 0.00 K/uL RDW Standard Deviation 48.5 fL RDW Coefficient of Variation 14.4 % Immature Granulocyte % (Auto) 0.4 % Immature Granulocyte # (Auto) 0.04 K/uL Sodium Level 136 mmol/L Potassium Level 4.2 mmol/L Chloride Level 100 mmol/L Carbon Dioxide Level 32 mmol/L Anion Gap 4.0 mmol/L Blood Urea Nitrogen 20 mg/dl Creatinine 0.61 mg/dl Est Creatinine Clear Calc Drug Dose 123.1 ml/min Estimated GFR () 125.1 Estimated GFR (Non- 108.0 BUN/Creatinine Ratio 32.4 Random Glucose 99 mg/dl Calcium Level 8.8 mg/dl Phosphorus Level 3.3 mg/dl Magnesium Level 2.0 mg/dl
--- NOTE | 2017-03-05 10:43 | Progress Note ---
Internal Med Progress Note Date of Service: Mar 05, 2017. Provider Documentation: SUBJECTIVE: The patient was seen and examined S/P Extubation Has decreased cough reflex-has to have round the clock Nebs Remains stable OBJECTIVE: Vital Signs-as noted below Exam: General-Not in any distress Eyes-open ENT-Normal Neck-Supple Lungs-Clear to auscultate bilaterally with decreased breath sound Occasional crackles Heart-Regular,no murmur Abdomen-Benign.no masses,bowel sound present Extremities-Trace edema bilaterally Neuro-AA Has Mental retardation Moving all limbs Lab data as noted below. CXR::1. No change in the right middle lobe and left lung base airspace opacities. 2. The endotracheal tube has been removed. 3. Nasogastric tube terminates below the diaphragm. ASSESSMENT & PLAN: ACUTE HYPOXIC RESPIRATORY FAILURE: -likely secondary to RUL and BAN Pneumonia -Component of COPD-nonsmoker -patient has a history of bronchiectasis and aspiration -profound hypoxia in the ER, O2 sats in the 60s on admission -required intubation on admission 02/27; -CXR and CT suggestive of multifocal pneumonia; and -was started on Cefepime, Levaquin and Vancomycin in the ED as well as solu- medrol; now on vanco and cefepime day#3 -patient in ICU, Simplex Operator consulted, management appreciated - planning for bronchoscopy in AM w/ possible EBUS -lactic acidosis likely secondary to above -continued on IV fluids for now -failed Bronchoscopy due to desaturation -S/P Extubation -Doing reasonably well following Extubation -Continue current dose of Steroid,Antibiotics,Nebs -No t yet ready to be transferred to [facility] Right Perihilar and left base masses noted -Noted before -POA wants tissue diagnosis -Bronchoscopy + Biopsy -failed Started on IV Cefepime and Vanco Continue Cefepime for a TOTAL OF 7 DAYS Mental Retardation Stable ELEVATED TROPONINS: -EKG suggests QT prolongation -TTE Report: essentially no wall motion abnormalities, EF 55-60% * -- Conclusions -- * The left ventricle is normal in size. * There is normal left ventricular wall thickness. * No regional wall motion abnormalities noted. * Ejection Fraction = 55-60%. * The right ventricle is normal in size and function. * There is trace tricuspid regurgitation. * Doppler findings do not suggest pulmonary hypertension. The inferior vena cava is mildly dilated -serial CM trended down Nutrition Has been on Enteral Feeding Speech evaluation today and change to Oral feed if appropriate DVT PROPHYLAXIS SQ Heparin GI prophylaxis IV Protonix DISPOSITION Awaited Family updated daily by the Simplex Operator Vital Signs: Date Time Temp Pulse Resp B/P (MAP) Pulse Ox O2 Delivery O2 Flow Rate FiO2 03/05/17 10:01 72 14 151/75 (100) 94 Nasal Cannula 2.0 03/05/17 09:07 69 21 144/81 (102) 94 Nasal Cannula 2.0 03/05/17 08:02 36.9 76 13 96/46 (63) 94 Nasal Cannula 2.0 03/05/17 08:00 Nasal Cannula 2.0 03/05/17 07:01 72 14 124/61 (82) 99 Nasal Cannula 2.0 03/05/17 07:01 71 16 95 Nasal Cannula 2.0 03/05/17 06:01 72 18 138/67 (90) 94 Nasal Cannula 2.0 03/05/17 05:01 73 20 132/86 (101) 94 Nasal Cannula 2.0 03/05/17 04:01 37.0 74 16 138/61 (86) 95 Nasal Cannula 2.0 03/05/17 04:00 Nasal Cannula 2.0 03/05/17 03:01 84 18 134/70 (91) 94 Nasal Cannula 2.0 03/05/17 02:02 76 15 128/95 (106) 97 Nasal Cannula 2.0 03/05/17 01:58 70 18 95 Nasal Cannula 2.0 03/05/17 01:27 76 14 133/84 (100) 94 Nasal Cannula 2.0 03/05/17 00:01 Nasal Cannula 2.0 03/05/17 00:01 37.1 65 14 113/64 (80) 94 Nasal Cannula 2.0 03/04/17 23:01 62 11 125/68 (87) 94 Nasal Cannula 2.0 03/04/17 22:00 65 14 109/65 (80) 94 Nasal Cannula 2.0 03/04/17 20:00 36.8 71 22 146/81 (102) 94 Nasal Cannula 2.0 03/04/17 20:00 Nasal Cannula 2.0 03/04/17 18:55 57 12 94 Nasal Cannula 2.0 03/04/17 18:00 59 13 120/63 (82) 95 Nasal Cannula 2.0 03/04/17 16:00 Nasal Cannula 2.0 03/04/17 16:00 36.8 63 12 137/71 (93) 94 Nasal Cannula 2.0 03/04/17 14:22 72 20 96 Nasal Cannula 2.0 03/04/17 14:00 71 15 143/79 (100) 96 Nasal Cannula 2.0 03/04/17 12:01 36.6 74 21 145/82 (103) 96 Oxymask 4.0 03/04/17 12:00 Oxymask 4.0 03/04/17 11:22 67 20 96 Mask 4.0 Lab Results: Results Past 24 Hours Test 03/05/17 05:39 Range/Units White Blood Count 10.05 4.8-10.8 K/uL Red Blood Count 4.28 4.2-5.4 M/uL Hemoglobin 12.4 12.0-16.0 g/dL Hematocrit 39.1 37-47 % Mean Corpuscular Volume 91.4 80-100 fL Mean Corpuscular Hemoglobin 29.0 25-34 pg Mean Corpuscular Hemoglobin Concent 31.7 32-36 g/dl Platelet Count 272 130-400 K/uL Mean Platelet Volume 10.0 7.4-10.4 fL Neutrophils (%) (Auto) 73.1 % Lymphocytes (%) (Auto) 13.2 % Monocytes (%) (Auto) 13.1 % Eosinophils (%) (Auto) 0.2 % Basophils (%) (Auto) 0.0 % Neutrophils # (Auto) 7.34 1.4-6.5 K/uL Lymphocytes # (Auto) 1.33 1.2-3.4 K/uL Monocytes # (Auto) 1.32 0.11-0.59 K/uL Eosinophils # (Auto) 0.02 0-0.5 K/uL Basophils # (Auto) 0.00 0-0.2 K/uL RDW Standard Deviation 48.5 36.4-46.3 fL RDW Coefficient of Variation 14.4 11.5-14.5 % Immature Granulocyte % (Auto) 0.4 % Immature Granulocyte # (Auto) 0.04 0.00-0.02 K/uL Sodium Level 136 136-145 mmol/L Potassium Level 4.2 3.5-5.1 mmol/L Chloride Level 100 98-107 mmol/L Carbon Dioxide Level 32 21-32 mmol/L Anion Gap 4.0 3-11 mmol/L Blood Urea Nitrogen 20 7-18 mg/dl Creatinine 0.61 0.60-1.20 mg/dl Est Creatinine Clear Calc Drug Dose 123.1 ml/min Estimated GFR () 125.1 Estimated GFR (Non- 108.0 BUN/Creatinine Ratio 32.4 10-20 Random Glucose 99 70-99 mg/dl Calcium Level 8.8 8.5-10.1 mg/dl Phosphorus Level 3.3 2.5-4.9 mg/dl Magnesium Level 2.0 1.8-2.4 mg/dl
[2017-03-05] MEDS: ALBUT/IPRATROP 3MG/0.5MG NEB 3 ML VIAL INH SCH ×3 (11:05→19:36)
[2017-03-05] MEDS: PEPTAMEN INTENSE VHP 1000ML BAG NG PRN (11:41)
[2017-03-05] MEDS: PRAVASTATIN SOD 20 MG TAB PO SCH (20:00)
[2017-03-06] VITALS (20 sets, daily range): BP systolic 101–150; BP diastolic 57–98; PULSE 59–98; TEMP 36.7–37.2; O2SAT 92–98
[2017-03-06 05:47] LABS: BUN/CREATININE RATIO 35.2 (10-20); CALCIUM 9.3 mg/dl (8.5-10.1); CREATININE 0.64 mg/dl (0.60-1.20); MAGNESIUM 1.9 mg/dl (1.8-2.4); POTASSIUM 4.1 mmol/L (3.5-5.1)
[2017-03-06] MEDS: CEFEPIME IV 2,000 MG in SYRINGE 7.5 ML IV SCH ×2 (06:37→13:28)
[2017-03-06] MEDS: PEPTAMEN INTENSE VHP 1000ML BAG NG PRN (06:37)
[2017-03-06 06:39] LABS: COMPLETE YES; EOS % 0.6 %; HEMATOCRIT 41.2 % (37-47); IG% 0.5 %; LYMPH % 10.7 %; LYMPH ABS # 1.35 K/uL (1.2-3.4); MEAN CELL VOLUME 90.5 fL (80-100); MEAN CORPUSCULAR HEMOGLOBIN 29.9 pg (25-34); MEAN PLATELET VOLUME 9.8 fL (7.4-10.4); MONO % 12.3 %; NEUT % 75.9 %; PLATELET COUNT 313 K/uL (130-400); RED BLOOD COUNT 4.55 M/uL (4.2-5.4); WHITE BLOOD COUNT 12.65 K/uL (4.8-10.8)
[2017-03-06] MEDS: ALBUT/IPRATROP 3MG/0.5MG NEB 3 ML VIAL INH SCH ×4 (06:56→19:11)
[2017-03-06] MEDS: CLONAZEPAM 0.5 MG TAB PO SCH ×3 (09:19→21:48)
[2017-03-06] MEDS: METHYLPREDNISOLONE IV 40 MG in SYRINGE 0 ML IV SCH ×2 (09:19→21:49)
[2017-03-06] MEDS: HEPARIN SOD 5000 UNIT/0.5 ML CARP SQ SCH ×2 (09:19→21:50)
[2017-03-06] MEDS: LANSOPRAZOLE SOLUTAB 30 MG PO SCH (09:19)
--- NOTE | 2017-03-06 10:45 | Critical Care Progress Note ---
Critical Care Progress Note Date of Service Mar 06, 2017. Attending Dr. [place] Subjective Review of systems is not obtainable to the patient baseline mental retardation. No events occurred overnight. Objective VSS, S1S2 RRR, lungs with diminished BS, abdomen is benign. CCE. neuro awake but does not follow commands. BL. Physical exam on 03/01/17 revealed stable vital signs, off pressors, heart examination S1-S2 regular rate and rhythm, abdomen is benign, trace edema in the periphery. Neurologically difficult to assess. On 03/02/2017, the patient continued to have difficulty adjusting to the ventilator. The patient also had episodes of hypoxia and hypercapnia. On 03/03/2017, the patient physical exam revealed stable vital signs, no JVP, heart examination S1-S2 regular rate and rhythm, bilateral rhonchi, abdomen is benign but distended, trace edema in the periphery. Neurologically difficult to assess. On 03/04/2017, the patient physical exam revealed stable vital signs, she has rhonchi bilaterally, heart examination S1-S2 regular rate and rhythm, abdomen is benign, she has trace edema in the periphery. On 03/05/2017, the patient physical exam showed stable vital signs, off the ventilator, no stridor, minimal crackles at the bases, heart examination S1-S2 regular rate and rhythm, abdomen is slightly distended but nontender, minimal edema in the periphery. Neurologic the patient difficult to assess. On 03/06/2017, the patient physical exam revealed stable vital signs, she is maintaining her airways, she remains extubated day 2, no fever, heavy urine output noted by the nursing staff to be excessive, heart examination S1-S2 regular rate and rhythm, basilar crackles, abdomen is benign and no edema in the periphery. Neurologically difficult to assess. Current SOFA Score SOFA Score Response (Comments) Value PaO2/FiO2 (mmHg) < 400 1 SaO2 / FIO2 221 - 301 1 Platelets (x10) > 150 0 Bilirubin (mg/dL) < 1.2 0 [place] Coma Score 15 0 Level of Hypotension No Hypotension 0 Creatinine (mg/dL) < 1.2 0 Total 2 Assessment & Plan Her labs reviewed personally, her chest x-ray showed bilateral consolidation which are old representing lipoid pneumonia noted to the patient. Impression: #1 acute respiratory failure, resolved, the patient is postextubation day 2. #2 left upper lobe pneumonia resolving and the patient complaining her course of antibiotics. #3 polyuria could be related to serotonin/norepinephrine reuptake inhibitor such as olanzapine. #4 lipoid pneumonia, no specific treatment. #5 acute lung injury, responded to steroids. #6 dysphagia. #7 mental retardation. Plan: #1 I will stop Zyprexa. #2 restart doxepin 10 mg at bedtime. #3 obtain daily. #4 I would watch what her urine output. If it does not decrease it could be just related to excessive volume resuscitation versus centrally induced diabetes insipidus. However her sodium remains normal, I would hold off on checking the osmolality and I'm hoping that the urine output was decreased after stopping Zyprexa. #5 swallow evaluation today. #6 continue NG tube feeding. #7 DVT and GI prophylaxis. #8 no skin issues. #9 glucose control. #[address] joel, appreciate his acceptance of this case to regular floor. #11 when updated the family. #12 case discussed with the staff on rounds and details. Critical care time spent with the patient was 35 minutes. Consults & Procedures Consultants: none Procedures: bronch in am. Data Medications: Current Inpatient Medications Medications (Trade) Dose Ordered Sig/Kiera Route Start Time Stop Time Status Last Admin Dose Admin Clonazepam (Klonopin Tab) 0.5 mg TID PO 02/27/17 21:00 03/29/17 20:59 03/06/17 09:19 0.5 MG Pravastatin Sodium (Pravachol Tab) 20 mg HS PO 02/27/17 21:00 03/29/17 20:59 03/05/17 20:00 20 MG Cefepime HCl 2000 mg/Syringe 20 ml @ 5 mls/min Q8H IV 02/27/17 22:00 03/06/17 21:59 03/06/17 06:37 5 MLS/MIN Heparin Sodium (Porcine) (Heparin 10 Unit/ ml 5 ml Flush) 5 ml PRN PRN FLUSH 02/27/17 18:45 03/29/17 18:44 Heparin Sodium (Porcine) (Heparin Sq 5000 Unit/0.5ml) 5,000 unit Q12 SQ 03/01/17 21:00 03/31/17 20:59 03/06/17 09:19 5,000 UNIT Enteral Nutritional Formula (Peptamen Intense VHP) 1,000 ml UD PRN NG 03/02/17 10:30 04/01/17 10:29 03/06/17 06:37 1,000 ML Methylprednisolone Sodium Succinate 40 mg/Syringe 0.64 ml @ 1.5 mls/min Q12H IV 03/02/17 21:00 04/01/17 20:59 03/06/17 09:19 1.5 MLS/MIN Lactulose (Chronulac Syrup) 30 gm Q6 PRN PO 03/04/17 08:45 04/03/17 08:44 Lansoprazole (Prevacid Solutab) 30 mg QAM PO 03/05/17 09:00 03/09/17 08:59 03/06/17 09:19 30 MG Albuterol/ Ipratropium (Duoneb) 3 ml QIDR INH 03/05/17 12:00 04/04/17 11:59 03/06/17 06:56 3 ML Doxepin HCl ([place] Cap) 10 mg HS PO 03/06/17 21:00 04/05/17 20:59 Vital Signs: Date Time Temp Pulse Resp B/P (MAP) Pulse Ox O2 Delivery O2 Flow Rate FiO2 03/06/17 09:01 82 21 115/69 (84) 93 Nasal Cannula 2.0 03/06/17 08:01 37.2 88 21 134/76 (95) 92 Nasal Cannula 2.0 03/06/17 08:00 Nasal Cannula 2.0 03/06/17 07:01 84 18 143/79 (100) 98 Nasal Cannula 2.0 03/06/17 06:58 86 18 95 Nasal Cannula 2.0 03/06/17 05:02 98 23 131/78 (95) 95 Nasal Cannula 2.0 03/06/17 05:00 36.8 81 18 149/81 (103) 94 Nasal Cannula 2.0 03/06/17 04:00 Nasal Cannula 2.0 03/06/17 03:01 73 17 146/88 (107) 96 Nasal Cannula 2.0 03/06/17 02:01 77 19 117/92 (100) 94 Nasal Cannula 2.0 03/06/17 01:01 81 19 101/86 (91) 96 Nasal Cannula 2.0 03/06/17 00:01 Nasal Cannula 2.0 03/06/17 00:01 37.1 83 16 128/57 (80) 95 Nasal Cannula 2.0 03/05/17 23:01 74 16 106/49 (68) 94 Nasal Cannula 2.0 03/05/17 22:01 79 15 126/66 (86) 93 Nasal Cannula 2.0 03/05/17 21:01 76 17 135/69 (91) 92 Nasal Cannula 2.0 03/05/17 20:01 37.0 82 18 146/76 (99) 93 Nasal Cannula 2.0 03/05/17 20:00 Nasal Cannula 2.0 03/05/17 19:36 82 17 95 Nasal Cannula 2.0 03/05/17 18:00 72 18 140/71 (94) 93 Nasal Cannula 2.0 03/05/17 16:00 Nasal Cannula 2.0 03/05/17 16:00 36.9 84 22 160/73 (102) 94 Nasal Cannula 2.0 03/05/17 15:05 88 16 94 Nasal Cannula 2.0 03/05/17 14:00 75 19 142/88 (106) 94 Nasal Cannula 2.0 03/05/17 12:20 36.7 75 18 140/91 (107) 93 Nasal Cannula 2.0 03/05/17 12:00 Nasal Cannula 2.0 03/05/17 11:07 68 18 96 Nasal Cannula 2.0 Laboratory Results: Last 24 Hours Test 03/06/17 04:41 03/06/17 06:13 Sodium Level 134 mmol/L Potassium Level 4.1 mmol/L Chloride Level 94 mmol/L Carbon Dioxide Level 35 mmol/L Anion Gap 5.0 mmol/L Blood Urea Nitrogen 23 mg/dl Creatinine 0.64 mg/dl Est Creatinine Clear Calc Drug Dose 117.3 ml/min Estimated GFR () 123.2 Estimated GFR (Non- 106.3 BUN/Creatinine Ratio 35.2 Random Glucose 97 mg/dl Calcium Level 9.3 mg/dl Phosphorus Level 4.0 mg/dl Magnesium Level 1.9 mg/dl White Blood Count 12.65 K/uL Red Blood Count 4.55 M/uL Hemoglobin 13.6 g/dL Hematocrit 41.2 % Mean Corpuscular Volume 90.5 fL Mean Corpuscular Hemoglobin 29.9 pg Mean Corpuscular Hemoglobin Concent 33.0 g/dl Platelet Count 313 K/uL Mean Platelet Volume 9.8 fL Neutrophils (%) (Auto) 75.9 % Lymphocytes (%) (Auto) 10.7 % Monocytes (%) (Auto) 12.3 % Eosinophils (%) (Auto) 0.6 % Basophils (%) (Auto) 0.0 % Neutrophils # (Auto) 9.61 K/uL Lymphocytes # (Auto) 1.35 K/uL Monocytes # (Auto) 1.55 K/uL Eosinophils # (Auto) 0.08 K/uL Basophils # (Auto) 0.00 K/uL RDW Standard Deviation 47.1 fL RDW Coefficient of Variation 14.5 % Immature Granulocyte % (Auto) 0.5 % Immature Granulocyte # (Auto) 0.06 K/uL Nucleated RBC Absolute Count (auto) 0.02 K/uL Nucleated Red Blood Cells % 0.1 %
--- NOTE | 2017-03-06 11:38 | Progress Note ---
Internal Med Progress Note Date of Service: Mar 06, 2017. Provider Documentation: SUBJECTIVE: The patient was seen and examined S/P Extubation.Day #2 Has decreased cough reflex-has to have round the clock Nebs Remains stable in ICU OBJECTIVE: Vital Signs-as noted below Exam: General-Not in any distress Eyes-open ENT-Normal Neck-Supple Lungs-Clear to auscultate bilaterally with decreased breath sound Occasional crackles Heart-Regular,no murmur Abdomen-Benign.no masses,bowel sound present Extremities-Trace edema bilaterally Neuro-AA Has Mental retardation Moving all limbs Lab data as noted below. CXR::1. No change in the right middle lobe and left lung base airspace opacities. 2. The endotracheal tube has been removed. 3. Nasogastric tube terminates below the diaphragm. ASSESSMENT & PLAN: ACUTE HYPOXIC RESPIRATORY FAILURE: -likely secondary to RUL and BAN Pneumonia -Component of COPD-nonsmoker -patient has a history of bronchiectasis and aspiration -profound hypoxia in the ER, O2 sats in the 60s on admission -required intubation on admission 02/27; -CXR and CT suggestive of multifocal pneumonia; and -was started on Cefepime, Levaquin and Vancomycin in the ED as well as solu- medrol; now on vanco and cefepime day#3 -patient in ICU, Managed Care Specialist consulted, management appreciated - planning for bronchoscopy in AM w/ possible EBUS -lactic acidosis likely secondary to above -continued on IV fluids for now -failed Bronchoscopy due to desaturation -S/P Extubation .Day #2 -03/06/17 -Doing reasonably well following Extubation -Continue current dose of Steroid,Antibiotics,Nebs -Stable to be transferred to [facility] -D/C Antibiotic today Right Perihilar and left base masses noted -Noted before -POA wants tissue diagnosis -Bronchoscopy + Biopsy -failed Started on IV Cefepime and Vanco (discontinued) Continue Cefepime for a TOTAL OF 7 DAYS D/C Antibiotic today Mental Retardation Stable ELEVATED TROPONINS: -EKG suggests QT prolongation -TTE Report: essentially no wall motion abnormalities, EF 55-60% * -- Conclusions -- * The left ventricle is normal in size. * There is normal left ventricular wall thickness. * No regional wall motion abnormalities noted. * Ejection Fraction = 55-60%. * The right ventricle is normal in size and function. * There is trace tricuspid regurgitation. * Doppler findings do not suggest pulmonary hypertension. The inferior vena cava is mildly dilated -serial CM trended down -no more cardiac issue Nutrition Has been on Enteral Feeding Speech evaluation today and change to Oral feed if appropriate DVT PROPHYLAXIS SQ Heparin GI prophylaxis IV Protonix DISPOSITION Awaited Family updated daily by the Managed Care Specialist Transferred to [facility] Vital Signs: Date Time Temp Pulse Resp B/P (MAP) Pulse Ox O2 Delivery O2 Flow Rate FiO2 03/06/17 09:01 82 21 115/69 (84) 93 Nasal Cannula 2.0 03/06/17 08:01 37.2 88 21 134/76 (95) 92 Nasal Cannula 2.0 03/06/17 08:00 Nasal Cannula 2.0 03/06/17 07:01 84 18 143/79 (100) 98 Nasal Cannula 2.0 03/06/17 06:58 86 18 95 Nasal Cannula 2.0 03/06/17 05:02 98 23 131/78 (95) 95 Nasal Cannula 2.0 03/06/17 05:00 36.8 81 18 149/81 (103) 94 Nasal Cannula 2.0 03/06/17 04:00 Nasal Cannula 2.0 03/06/17 03:01 73 17 146/88 (107) 96 Nasal Cannula 2.0 03/06/17 02:01 77 19 117/92 (100) 94 Nasal Cannula 2.0 03/06/17 01:01 81 19 101/86 (91) 96 Nasal Cannula 2.0 03/06/17 00:01 Nasal Cannula 2.0 03/06/17 00:01 37.1 83 16 128/57 (80) 95 Nasal Cannula 2.0 03/05/17 23:01 74 16 106/49 (68) 94 Nasal Cannula 2.0 03/05/17 22:01 79 15 126/66 (86) 93 Nasal Cannula 2.0 03/05/17 21:01 76 17 135/69 (91) 92 Nasal Cannula 2.0 03/05/17 20:01 37.0 82 18 146/76 (99) 93 Nasal Cannula 2.0 03/05/17 20:00 Nasal Cannula 2.0 03/05/17 19:36 82 17 95 Nasal Cannula 2.0 03/05/17 18:00 72 18 140/71 (94) 93 Nasal Cannula 2.0 03/05/17 16:00 Nasal Cannula 2.0 03/05/17 16:00 36.9 84 22 160/73 (102) 94 Nasal Cannula 2.0 03/05/17 15:05 88 16 94 Nasal Cannula 2.0 03/05/17 14:00 75 19 142/88 (106) 94 Nasal Cannula 2.0 03/05/17 12:20 36.7 75 18 140/91 (107) 93 Nasal Cannula 2.0 03/05/17 12:00 Nasal Cannula 2.0 Lab Results: Results Past 24 Hours Test 03/06/17 04:41 03/06/17 06:13 Range/Units Sodium Level 134 136-145 mmol/L Potassium Level 4.1 3.5-5.1 mmol/L Chloride Level 94 98-107 mmol/L Carbon Dioxide Level 35 21-32 mmol/L Anion Gap 5.0 3-11 mmol/L Blood Urea Nitrogen 23 7-18 mg/dl Creatinine 0.64 0.60-1.20 mg/dl Est Creatinine Clear Calc Drug Dose 117.3 ml/min Estimated GFR () 123.2 Estimated GFR (Non- 106.3 BUN/Creatinine Ratio 35.2 10-20 Random Glucose 97 70-99 mg/dl Calcium Level 9.3 8.5-10.1 mg/dl Phosphorus Level 4.0 2.5-4.9 mg/dl Magnesium Level 1.9 1.8-2.4 mg/dl White Blood Count 12.65 4.8-10.8 K/uL Red Blood Count 4.55 4.2-5.4 M/uL Hemoglobin 13.6 12.0-16.0 g/dL Hematocrit 41.2 37-47 % Mean Corpuscular Volume 90.5 80-100 fL Mean Corpuscular Hemoglobin 29.9 25-34 pg Mean Corpuscular Hemoglobin Concent 33.0 32-36 g/dl Platelet Count 313 130-400 K/uL Mean Platelet Volume 9.8 7.4-10.4 fL Neutrophils (%) (Auto) 75.9 % Lymphocytes (%) (Auto) 10.7 % Monocytes (%) (Auto) 12.3 % Eosinophils (%) (Auto) 0.6 % Basophils (%) (Auto) 0.0 % Neutrophils # (Auto) 9.61 1.4-6.5 K/uL Lymphocytes # (Auto) 1.35 1.2-3.4 K/uL Monocytes # (Auto) 1.55 0.11-0.59 K/uL Eosinophils # (Auto) 0.08 0-0.5 K/uL Basophils # (Auto) 0.00 0-0.2 K/uL RDW Standard Deviation 47.1 36.4-46.3 fL RDW Coefficient of Variation 14.5 11.5-14.5 % Immature Granulocyte % (Auto) 0.5 % Immature Granulocyte # (Auto) 0.06 0.00-0.02 K/uL Nucleated RBC Absolute Count (auto) 0.02 0-0 K/uL Nucleated Red Blood Cells % 0.1 %
[2017-03-06] MEDS: DOXEPIN HCL 10 MG CAP PO SCH (21:49)
[2017-03-06] MEDS: PRAVASTATIN SOD 20 MG TAB PO SCH (21:49)
[2017-03-07] VITALS (17 sets, daily range): BP systolic 105–164; BP diastolic 67–94; PULSE 76–103; TEMP 36.8–37.4; O2SAT 84–96
[2017-03-07] MEDS: ALBUT/IPRATROP 3MG/0.5MG NEB 3 ML VIAL INH SCH ×4 (07:22→20:00)
[2017-03-07 09:28] LABS: BASO % 0.1 %; BASO ABS # 0.01 K/uL (0-0.2); COMPLETE YES; EOS % 0.6 %; HEMATOCRIT 42.8 % (37-47); IG% 0.6 %; LYMPH % 11.4 %; LYMPH ABS # 1.58 K/uL (1.2-3.4); MEAN CELL VOLUME 90.5 fL (80-100); MEAN CORPUSCULAR HEMOGLOBIN 30.4 pg (25-34); MEAN CORPUSCULAR HGB CONC 33.6 g/dl (32-36); MEAN PLATELET VOLUME 9.9 fL (7.4-10.4); MONO % 15.7 %; NEUT % 71.6 %; PLATELET COUNT 335 K/uL (130-400); RED BLOOD COUNT 4.73 M/uL (4.2-5.4); WHITE BLOOD COUNT 13.81 K/uL (4.8-10.8)
[2017-03-07 09:47] LABS: BUN/CREATININE RATIO 49.8 (10-20); CALCIUM 9.5 mg/dl (8.5-10.1); CREATININE 0.58 mg/dl (0.60-1.20); POTASSIUM 4.2 mmol/L (3.5-5.1)
[2017-03-07] MEDS: CLONAZEPAM 0.5 MG TAB PO SCH ×3 (09:55→21:08)
[2017-03-07] MEDS: METHYLPREDNISOLONE IV 40 MG in SYRINGE 0 ML IV SCH (09:59)
[2017-03-07] MEDS: LANSOPRAZOLE SOLUTAB 30 MG PO SCH (09:59)
[2017-03-07] MEDS: HEPARIN SOD 5000 UNIT/0.5 ML CARP SQ SCH ×2 (10:01→21:09)
--- NOTE | 2017-03-07 15:52 | Progress Note ---
Internal Med Progress Note Date of Service: Mar 07, 2017. Provider Documentation: SUBJECTIVE: The patient was seen and examined S/P Extubation.Day #3 Has decreased cough reflex-has to have round the clock Nebs Remains stable in Tele Has had Speech evaluation -took out NGT OBJECTIVE: Vital Signs-as noted below Exam: General-Minimal Distress at rest Still requiring Restraints to prevent any pulling out of tubes Eyes-open ENT-Normal Neck-Supple Lungs-Clear to auscultate bilaterally with decreased breath sound Occasional crackles Heart-Regular,no murmur Abdomen-Benign.no masses,bowel sound present Extremities-Trace edema bilaterally Neuro-AA Has Mental retardation Moving all limbs Lab data as noted below. CXR::1. No change in the right middle lobe and left lung base airspace opacities. 2. The endotracheal tube has been removed. 3. Nasogastric tube terminates below the diaphragm. ASSESSMENT & PLAN: ACUTE HYPOXIC RESPIRATORY FAILURE: -likely secondary to RUL and BAN Pneumonia -Component of COPD-nonsmoker -patient has a history of bronchiectasis and aspiration -profound hypoxia in the ER, O2 sats in the 60s on admission -required intubation on admission 02/27; -CXR and CT suggestive of multifocal pneumonia; and -was started on Cefepime, Levaquin and Vancomycin in the ED as well as solu- medrol; now on vanco and cefepime day#3 -patient in ICU, Treatment Technician consulted, management appreciated - planning for bronchoscopy in AM w/ possible EBUS -lactic acidosis likely secondary to above -continued on IV fluids for now -failed Bronchoscopy due to desaturation -S/P Extubation .Day #3 -03/06/17 -Doing reasonably well following Extubation -Continue current dose of Steroid,Antibiotics,Nebs -D/C Antibiotic today -remains stable in Tele Right Perihilar and left base masses noted -Noted before -POA wants tissue diagnosis -Bronchoscopy + Biopsy -failed Started on IV Cefepime and Vanco (discontinued) Continue Cefepime for a TOTAL OF 7 DAYS D/C Antibiotic today Mental Retardation Stable ELEVATED TROPONINS: -EKG suggests QT prolongation -TTE Report: essentially no wall motion abnormalities, EF 55-60% * -- Conclusions -- * The left ventricle is normal in size. * There is normal left ventricular wall thickness. * No regional wall motion abnormalities noted. * Ejection Fraction = 55-60%. * The right ventricle is normal in size and function. * There is trace tricuspid regurgitation. * Doppler findings do not suggest pulmonary hypertension. The inferior vena cava is mildly dilated -serial CM trended down -no more cardiac issue Nutrition Has been on Enteral Feeding Speech evaluation today and change to Oral feed if appropriate Speech evaluation done today Tolerated her meals Continue diet as per Speech therapy recommendation DVT PROPHYLAXIS SQ Heparin GI prophylaxis IV Protonix DISPOSITION Awaited Family updated daily by the Treatment Technician Transferred to [facility] service for discharge planning Vital Signs: Date Time Temp Pulse Resp B/P (MAP) Pulse Ox O2 Delivery O2 Flow Rate FiO2 03/07/17 14:43 84 16 93 Nasal Cannula 2.0 03/07/17 12:00 96 Nasal Cannula 2.0 03/07/17 11:14 76 16 95 Nasal Cannula 2.0 03/07/17 11:02 36.9 83 22 164/94 (117) 93 Nasal Cannula 2.0 03/07/17 08:07 36.9 89 24 150/82 (104) 95 Nasal Cannula 3.0 03/07/17 08:00 96 Nasal Cannula 2.0 03/07/17 07:22 88 20 95 Nasal Cannula 2.0 03/07/17 04:02 36.8 88 18 105/67 (80) 95 Nasal Cannula 2.0 03/07/17 04:00 95 Nasal Cannula 2.0 03/07/17 00:27 37.1 84 16 106/82 (90) 93 2.0 03/07/17 00:00 95 Nasal Cannula 2.0 03/06/17 20:00 95 Nasal Cannula 2.0 03/06/17 19:28 37.1 85 24 138/85 (102) 94 Nasal Cannula 2.0 03/06/17 19:11 81 20 95 Nasal Cannula 2.0 03/06/17 16:27 84 20 97 Nasal Cannula 2.0 03/06/17 16:00 Nasal Cannula 2.0 Lab Results: Results Past 24 Hours Test 03/07/17 09:00 Range/Units White Blood Count 13.81 4.8-10.8 K/uL Red Blood Count 4.73 4.2-5.4 M/uL Hemoglobin 14.4 12.0-16.0 g/dL Hematocrit 42.8 37-47 % Mean Corpuscular Volume 90.5 80-100 fL Mean Corpuscular Hemoglobin 30.4 25-34 pg Mean Corpuscular Hemoglobin Concent 33.6 32-36 g/dl Platelet Count 335 130-400 K/uL Mean Platelet Volume 9.9 7.4-10.4 fL Neutrophils (%) (Auto) 71.6 % Lymphocytes (%) (Auto) 11.4 % Monocytes (%) (Auto) 15.7 % Eosinophils (%) (Auto) 0.6 % Basophils (%) (Auto) 0.1 % Neutrophils # (Auto) 9.89 1.4-6.5 K/uL Lymphocytes # (Auto) 1.58 1.2-3.4 K/uL Monocytes # (Auto) 2.17 0.11-0.59 K/uL Eosinophils # (Auto) 0.08 0-0.5 K/uL Basophils # (Auto) 0.01 0-0.2 K/uL RDW Standard Deviation 48.6 36.4-46.3 fL RDW Coefficient of Variation 14.8 11.5-14.5 % Immature Granulocyte % (Auto) 0.6 % Immature Granulocyte # (Auto) 0.08 0.00-0.02 K/uL Sodium Level 133 136-145 mmol/L Potassium Level 4.2 3.5-5.1 mmol/L Chloride Level 95 98-107 mmol/L Carbon Dioxide Level 36 21-32 mmol/L Anion Gap 2.0 3-11 mmol/L Blood Urea Nitrogen 29 7-18 mg/dl Creatinine 0.58 0.60-1.20 mg/dl Est Creatinine Clear Calc Drug Dose 126.5 ml/min Estimated GFR () 127.2 Estimated GFR (Non- 109.8 BUN/Creatinine Ratio 49.8 10-20 Random Glucose 100 70-99 mg/dl Calcium Level 9.5 8.5-10.1 mg/dl
[2017-03-07] MEDS: PRAVASTATIN SOD 20 MG TAB PO SCH (21:08)
[2017-03-07] MEDS: DOXEPIN HCL 10 MG CAP PO SCH (21:08)
[2017-03-08] VITALS (10 sets, daily range): BP systolic 115–155; BP diastolic 73–94; PULSE 68–90; TEMP 36.5–37.1; O2SAT 90–99
[2017-03-08] MEDS: ALBUT/IPRATROP 3MG/0.5MG NEB 3 ML VIAL INH SCH ×4 (07:47→20:00)
[2017-03-08] MEDS: CLONAZEPAM 0.5 MG TAB PO SCH ×3 (09:20→21:53)
[2017-03-08] MEDS: LANSOPRAZOLE SOLUTAB 30 MG PO SCH (09:20)
[2017-03-08] MEDS: HEPARIN SOD 5000 UNIT/0.5 ML CARP SQ SCH ×2 (09:21→22:06)
--- NOTE | 2017-03-08 10:47 | Progress Note ---
Internal Med Progress Note Date of Service: Mar 08, 2017. Provider Documentation: SUBJECTIVE: Seen and examined at bedside Non verbal at baseline No distress Being weaned off oxygen Tolerating diet Labs pending OBJECTIVE: Vital Signs-as noted below Physical Exam: General Appearance:Moderately built and nourished, no apparent distress Head: normocephalic, Atraumatic Eyes: normal inspection, EOMI, PERRL Neck: supple, Trachea midline Respiratory/Chest: Normal breath sounds, CTA Cardiovascular: S1, S2, No murmur Abdomen/GI:Soft, Non tender, Bowel sounds present Extremities/Musculoskelatal:normal inspection, no edema Neurologic/Psych:grossly no focal neurological deficits, + mental retardation Skin: normal color, warm Lab data as noted below. ASSESSMENT & PLAN: Acute Hypoxic Respiratory Failure: likely secondary to RUL and BAN Pneumonia Component of COPD; H/O bronchiectasis and aspiration Presented with profound hypoxia in the ER, O2 sats in the 60s required intubation CXR and CT suggestive of multifocal pneumonia Completed IV antibiotics S/P bronchoscopy but could not complete as desaturated S/P Extubation: 03/06/17 Continue PO prednisone taper, Nebs Wean off oxygen as able labs pending Right Perihilar and left base masses noted Noted before POA prefers to have tissue diagnosis Bronchoscopy + Biopsy failed Completed Antibiotic therapy Mental Retardation Stable Elevated Troponin: EKG suggests QT prolongation TTE Report: essentially no wall motion abnormalities, EF 55-60% * -- Conclusions -- * The left ventricle is normal in size. * There is normal left ventricular wall thickness. * No regional wall motion abnormalities noted. * Ejection Fraction = 55-60%. * The right ventricle is normal in size and function. * There is trace tricuspid regurgitation. * Doppler findings do not suggest pulmonary hypertension. The inferior vena cava is mildly dilated serial CM trended down no more cardiac issue Nutrition Enteral Feeding discontinued Speech evaluation completed Continue diet as per Speech therapy recommendation DVT Px: SQ Heparin GI prophylaxis IV Protonix DISPOSITION Awaited Social service for discharge planning PROCEDURES: CTA: 1. No acute aortic pathology or evidence of pulmonary thromboembolic disease. 2. Multifocal consolidative alveolar opacities of the left greater than right upper lobes and to a lesser extent within the bilateral lower lobes suggests multifocal pneumonia. 3. Large irregular masslike areas of low attenuating consolidation with macroscopic fat attenuation of the perihilar right upper lobe and basal left lower lobe are again noted without significant change from 03/17/2009 study with 1.8 cm low attenuating consolidation of the right upper lobe mildly enlarged from comparison. Differential considerations would include chronic lipoid pneumonia, or pulmonary alveolar proteinosis among other etiologies. These findings could be correlated with bronchoscopy and tissue sampling for definitive diagnosis. 4. Low attenuating right hilar lymph node also noted. CT Head: No acute intracranial abnormality Speech Eval: * 1. Initiate a pureed diet, nectar thick liquids 2. STRICT aspiration precautions, NO straws. Fully upright for meals and for 30 minutes after meals. 3. Will need assistance with feeding. Small bites, slow rate. Only feed when awake, alert, and able to participate. Stop feeding with any increased signs of fatigue. 4. Stringent oral care as tolerated. Provide care prior to and after meals along with before bed. Monitor for any pocketing. 5. Speech will monitor closely for tolerance. Should any increased difficulty with swallowing or overt aspiration be evidenced, recommend returning to NPO status and video swallow study. Vital Signs: Date Time Temp Pulse Resp B/P (MAP) Pulse Ox O2 Delivery O2 Flow Rate FiO2 03/08/17 11:03 36.7 68 14 115/73 (87) 90 Nasal Cannula 03/08/17 07:47 79 16 99 Nasal Cannula 2.0 03/08/17 07:36 36.9 76 22 155/81 (105) 94 Nasal Cannula 2.0 03/08/17 04:00 Nasal Cannula 2.0 03/08/17 03:44 37.1 75 20 134/86 (102) 96 03/08/17 00:01 Nasal Cannula 2.0 03/07/17 23:12 36.8 90 16 147/82 (103) 90 Nasal Cannula 2.0 03/07/17 20:00 Nasal Cannula 2.0 03/07/17 19:46 87 16 88 Room Air 03/07/17 19:37 89 Nasal Cannula 2.0 03/07/17 19:35 36.9 103 20 131/88 (102) 84 Room Air 03/07/17 16:00 96 Nasal Cannula 2.0 03/07/17 15:42 37.4 98 22 147/70 (95) 94 Nasal Cannula 2.0 03/07/17 14:43 84 16 93 Nasal Cannula 2.0 03/07/17 12:00 96 Nasal Cannula 2.0 Lab Results: Results Past 24 Hours Test 03/08/17 09:43 Range/Units
[2017-03-08 11:30] LABS: BASO % 0.1 %; BASO ABS # 0.01 K/uL (0-0.2); COMPLETE YES; EOS % 0.9 %; HEMATOCRIT 43.2 % (37-47); IG% 0.4 %; LYMPH % 14.2 %; LYMPH ABS # 2.04 K/uL (1.2-3.4); MEAN CELL VOLUME 90.9 fL (80-100); MEAN CORPUSCULAR HEMOGLOBIN 29.7 pg (25-34); MEAN CORPUSCULAR HGB CONC 32.6 g/dl (32-36); MEAN PLATELET VOLUME 10.2 fL (7.4-10.4); MONO % 13.9 %; NEUT % 70.5 %; PLATELET COUNT 331 K/uL (130-400); RED BLOOD COUNT 4.75 M/uL (4.2-5.4); WHITE BLOOD COUNT 14.36 K/uL (4.8-10.8)
[2017-03-08 11:53] LABS: BUN/CREATININE RATIO 35.7 (10-20); CALCIUM 9.4 mg/dl (8.5-10.1); CREATININE 0.65 mg/dl (0.60-1.20); POTASSIUM 3.3 mmol/L (3.5-5.1)
[2017-03-08] MEDS: PRAVASTATIN SOD 20 MG TAB PO SCH (21:53)
[2017-03-08] MEDS: DOXEPIN HCL 10 MG CAP PO SCH (21:53)
[2017-03-09] VITALS (12 sets, daily range): BP systolic 138–172; BP diastolic 75–102; PULSE 75–93; TEMP 36.6–37.3; O2SAT 90–99
[2017-03-09] MEDS: ALBUT/IPRATROP 3MG/0.5MG NEB 3 ML VIAL INH SCH (07:09)
[2017-03-09] MEDS: CLONAZEPAM 0.5 MG TAB PO SCH ×3 (07:30→20:20)
[2017-03-09] MEDS: HEPARIN SOD 5000 UNIT/0.5 ML CARP SQ SCH ×2 (07:31→20:31)
[2017-03-09 09:39] LABS: COMPLETE YES; EOS % 1.2 %; HEMATOCRIT 43.4 % (37-47); IG% 0.5 %; LYMPH % 7.1 %; LYMPH ABS # 0.92 K/uL (1.2-3.4); MEAN CELL VOLUME 91.4 fL (80-100); MEAN CORPUSCULAR HEMOGLOBIN 30.1 pg (25-34); MEAN CORPUSCULAR HGB CONC 32.9 g/dl (32-36); MONO % 11.2 %; PLATELET COUNT 317 K/uL (130-400); RED BLOOD COUNT 4.75 M/uL (4.2-5.4)
[2017-03-09 09:58] LABS: BUN/CREATININE RATIO 29.4 (10-20); CALCIUM 9.4 mg/dl (8.5-10.1); CREATININE 0.79 mg/dl (0.60-1.20); POTASSIUM 3.7 mmol/L (3.5-5.1)
--- NOTE | 2017-03-09 11:13 | Progress Note ---
Internal Med Progress Note Date of Service: Mar 09, 2017. Provider Documentation: SUBJECTIVE: Seen and examined at bedside Non verbal at baseline No apparent distress Still requiring 1-2 L of oxygen to maintain sats Tolerating diet BP labile OBJECTIVE: Vital Signs-as noted below Physical Exam: General Appearance:Moderately built and nourished, no apparent distress Head: normocephalic, Atraumatic Eyes: normal inspection, EOMI, PERRL Neck: supple, Trachea midline Respiratory/Chest: Normal breath sounds, CTA Cardiovascular: S1, S2, No murmur Abdomen/GI:Soft, Non tender, Bowel sounds present Extremities/Musculoskelatal:normal inspection, no edema Neurologic/Psych:grossly no focal neurological deficits, + mental retardation Skin: normal color, warm Lab data as noted below. ASSESSMENT & PLAN: Acute Hypoxic Respiratory Failure: likely secondary to RUL and BAN Pneumonia Component of COPD; H/O bronchiectasis and aspiration Presented with profound hypoxia in the ER, O2 sats in the 60s required intubation CXR and CT suggestive of multifocal pneumonia Completed IV antibiotics S/P bronchoscopy but could not complete as desaturated S/P Extubation: 03/06/17 Continue PO prednisone taper, Nebs PRN Wean off oxygen as able Continue current management Right Perihilar and left base masses noted Noted before as well POA prefers to have tissue diagnosis Bronchoscopy + Biopsy failed Completed Antibiotic therapy Mental Retardation Stable Elevated Troponin: EKG suggests QT prolongation TTE Report: essentially no wall motion abnormalities, EF 55-60% * -- Conclusions -- * The left ventricle is normal in size. * There is normal left ventricular wall thickness. * No regional wall motion abnormalities noted. * Ejection Fraction = 55-60%. * The right ventricle is normal in size and function. * There is trace tricuspid regurgitation. * Doppler findings do not suggest pulmonary hypertension. The inferior vena cava is mildly dilated serial CM trended down no more cardiac issue Nutrition Enteral Feeding discontinued Speech evaluation completed Continue diet as per Speech therapy recommendation DVT Px: SQ Heparin GI prophylaxis IV Protonix DISPOSITION Plan to discharge back to [facility] Social service for discharge planning PROCEDURES: CTA: 1. No acute aortic pathology or evidence of pulmonary thromboembolic disease. 2. Multifocal consolidative alveolar opacities of the left greater than right upper lobes and to a lesser extent within the bilateral lower lobes suggests multifocal pneumonia. 3. Large irregular masslike areas of low attenuating consolidation with macroscopic fat attenuation of the perihilar right upper lobe and basal left lower lobe are again noted without significant change from 03/17/2009 study with 1.8 cm low attenuating consolidation of the right upper lobe mildly enlarged from comparison. Differential considerations would include chronic lipoid pneumonia, or pulmonary alveolar proteinosis among other etiologies. These findings could be correlated with bronchoscopy and tissue sampling for definitive diagnosis. 4. Low attenuating right hilar lymph node also noted. CT Head: No acute intracranial abnormality Speech Eval: * 1. Initiate a pureed diet, nectar thick liquids 2. STRICT aspiration precautions, NO straws. Fully upright for meals and for 30 minutes after meals. 3. Will need assistance with feeding. Small bites, slow rate. Only feed when awake, alert, and able to participate. Stop feeding with any increased signs of fatigue. 4. Stringent oral care as tolerated. Provide care prior to and after meals along with before bed. Monitor for any pocketing. 5. Speech will monitor closely for tolerance. Should any increased difficulty with swallowing or overt aspiration be evidenced, recommend returning to NPO status and video swallow study. Vital Signs: Date Time Temp Pulse Resp B/P (MAP) Pulse Ox O2 Delivery O2 Flow Rate FiO2 03/09/17 11:06 36.7 90 31 150/102 (118) 94 03/09/17 09:00 147/87 (107) 03/09/17 08:00 Room Air 2.0 03/09/17 07:36 36.6 82 14 172/101 (124) 91 Room Air 03/09/17 07:09 75 16 90 Room Air 03/09/17 04:24 36.7 80 16 169/91 (117) 99 Humidified Air 2.0 03/09/17 04:00 Nasal Cannula 2.0 03/09/17 00:00 Nasal Cannula 2.0 03/08/17 23:29 36.5 82 16 141/77 (98) 95 Nasal Cannula 2.0 03/08/17 20:00 Nasal Cannula 2.0 03/08/17 19:26 36.8 85 15 142/78 (99) 91 Nasal Cannula 2.0 03/08/17 19:10 90 16 93 Room Air 03/08/17 16:00 Nasal Cannula 2.0 03/08/17 15:30 36.7 75 11 155/94 (114) 91 Nasal Cannula 2.0 03/08/17 15:14 71 16 91 Room Air 03/08/17 12:00 Nasal Cannula 2.0 03/08/17 11:44 79 16 95 Nasal Cannula 2.0 Lab Results: Results Past 24 Hours Test 03/09/17 09:22 Range/Units White Blood Count 13.00 4.8-10.8 K/uL Red Blood Count 4.75 4.2-5.4 M/uL Hemoglobin 14.3 12.0-16.0 g/dL Hematocrit 43.4 37-47 % Mean Corpuscular Volume 91.4 80-100 fL Mean Corpuscular Hemoglobin 30.1 25-34 pg Mean Corpuscular Hemoglobin Concent 32.9 32-36 g/dl Platelet Count 317 130-400 K/uL Mean Platelet Volume 10.0 7.4-10.4 fL Neutrophils (%) (Auto) 80.0 % Lymphocytes (%) (Auto) 7.1 % Monocytes (%) (Auto) 11.2 % Eosinophils (%) (Auto) 1.2 % Basophils (%) (Auto) 0.0 % Neutrophils # (Auto) 10.40 1.4-6.5 K/uL Lymphocytes # (Auto) 0.92 1.2-3.4 K/uL Monocytes # (Auto) 1.46 0.11-0.59 K/uL Eosinophils # (Auto) 0.15 0-0.5 K/uL Basophils # (Auto) 0.00 0-0.2 K/uL RDW Standard Deviation 49.4 36.4-46.3 fL RDW Coefficient of Variation 14.9 11.5-14.5 % Immature Granulocyte % (Auto) 0.5 % Immature Granulocyte # (Auto) 0.07 0.00-0.02 K/uL Sodium Level 136 136-145 mmol/L Potassium Level 3.7 3.5-5.1 mmol/L Chloride Level 99 98-107 mmol/L Carbon Dioxide Level 29 21-32 mmol/L Anion Gap 8.0 3-11 mmol/L Blood Urea Nitrogen 23 7-18 mg/dl Creatinine 0.79 0.60-1.20 mg/dl Est Creatinine Clear Calc Drug Dose 93.3 ml/min Estimated GFR () 103.3 Estimated GFR (Non- 89.1 BUN/Creatinine Ratio 29.4 10-20 Random Glucose 127 70-99 mg/dl Calcium Level 9.4 8.5-10.1 mg/dl
[2017-03-09] MEDS ORDERED: ALBUT/IPRATROP 3MG/0.5MG NEB 3 ML VIAL INH PRN (12:00)
[2017-03-09] MEDS: LANSOPRAZOLE SOLUTAB 30 MG PO SCH (17:14)
[2017-03-09] MEDS: DOXEPIN HCL 10 MG CAP PO SCH (20:20)
[2017-03-09] MEDS: PRAVASTATIN SOD 20 MG TAB PO SCH (20:20)
[2017-03-10 07:24] VITALS: BP 180/113; PULSE 85; O2SAT 95
[2017-03-10 08:00] VITALS: O2SAT 89
[2017-03-10] MEDS: CLONAZEPAM 0.5 MG TAB PO SCH ×3 (09:03→21:23)
[2017-03-10] MEDS: LANSOPRAZOLE SOLUTAB 30 MG PO SCH (09:03)
[2017-03-10] MEDS: HEPARIN SOD 5000 UNIT/0.5 ML CARP SQ SCH ×2 (09:09→21:28)
[2017-03-10 09:28] VITALS: O2SAT 89
[2017-03-10] MEDS ORDERED: NURSING DECISION MEDICATION ORDER SCH (10:00)
[2017-03-10 10:35] VITALS: BP 108/82
[2017-03-10] MEDS ORDERED: MICONAZOLE NITRATE POWDER 43 GM EXT PRN (12:15)
[2017-03-10 14:03] VITALS: O2SAT 88
[2017-03-10 16:00] VITALS: O2SAT 91
--- NOTE | 2017-03-10 17:36 | Progress Note ---
Internal Med Progress Note Date of Service: Mar 10, 2017. Provider Documentation: SUBJECTIVE: Seen and examined at bedside Pulled out IV site overnight Trying to be weaned off oxygen as able Saturating 91% on room air today Non verbal at baseline No apparent distress Tolerating diet OBJECTIVE: Vital Signs-as noted below Physical Exam: General Appearance:Moderately built and nourished, no apparent distress Head: normocephalic, Atraumatic Eyes: normal inspection, EOMI, PERRL Neck: supple, Trachea midline Respiratory/Chest: Normal breath sounds, CTA Cardiovascular: S1, S2, No murmur Abdomen/GI:Soft, Non tender, Bowel sounds present Extremities/Musculoskelatal:normal inspection, no edema Neurologic/Psych:grossly no focal neurological deficits, + mental retardation Skin: normal color, warm Lab data as noted below. ASSESSMENT & PLAN: Acute Hypoxic Respiratory Failure: likely secondary to RUL and BAN Pneumonia Component of COPD; H/O bronchiectasis and aspiration Presented with profound hypoxia in the ER, O2 sats in the 60s required intubation CXR and CT suggestive of multifocal pneumonia Completed IV antibiotics S/P bronchoscopy but could not complete as desaturated S/P Extubation: 03/06/17 Continue PO prednisone taper, Nebs PRN Being weaned off of oxygen as able Continue current management Right Perihilar and left base masses noted Noted before as well POA prefers to have tissue diagnosis Bronchoscopy + Biopsy failed Completed Antibiotic therapy Mental Retardation Stable Elevated Troponin: EKG suggests QT prolongation TTE Report: essentially no wall motion abnormalities, EF 55-60% * -- Conclusions -- * The left ventricle is normal in size. * There is normal left ventricular wall thickness. * No regional wall motion abnormalities noted. * Ejection Fraction = 55-60%. * The right ventricle is normal in size and function. * There is trace tricuspid regurgitation. * Doppler findings do not suggest pulmonary hypertension. The inferior vena cava is mildly dilated serial CM trended down no more cardiac issue Nutrition Enteral Feeding discontinued Speech evaluation completed Continue diet as per Speech therapy recommendation DVT Px: SQ Heparin GI prophylaxis IV Protonix DISPOSITION Plan to discharge back to [facility] when stable Social service for discharge planning PROCEDURES: CTA: 1. No acute aortic pathology or evidence of pulmonary thromboembolic disease. 2. Multifocal consolidative alveolar opacities of the left greater than right upper lobes and to a lesser extent within the bilateral lower lobes suggests multifocal pneumonia. 3. Large irregular masslike areas of low attenuating consolidation with macroscopic fat attenuation of the perihilar right upper lobe and basal left lower lobe are again noted without significant change from 03/17/2009 study with 1.8 cm low attenuating consolidation of the right upper lobe mildly enlarged from comparison. Differential considerations would include chronic lipoid pneumonia, or pulmonary alveolar proteinosis among other etiologies. These findings could be correlated with bronchoscopy and tissue sampling for definitive diagnosis. 4. Low attenuating right hilar lymph node also noted. CT Head: No acute intracranial abnormality Speech Eval: * 1. Initiate a pureed diet, nectar thick liquids 2. STRICT aspiration precautions, NO straws. Fully upright for meals and for 30 minutes after meals. 3. Will need assistance with feeding. Small bites, slow rate. Only feed when awake, alert, and able to participate. Stop feeding with any increased signs of fatigue. 4. Stringent oral care as tolerated. Provide care prior to and after meals along with before bed. Monitor for any pocketing. 5. Speech will monitor closely for tolerance. Should any increased difficulty with swallowing or overt aspiration be evidenced, recommend returning to NPO status and video swallow study. Vital Signs: Date Time Temp Pulse Resp B/P (MAP) Pulse Ox O2 Delivery O2 Flow Rate FiO2 03/10/17 16:00 91 Room Air 03/10/17 14:03 88 Room Air 03/10/17 10:35 108/82 (91) 03/10/17 09:28 89 Room Air 03/10/17 08:00 89 Room Air 03/10/17 07:24 85 20 180/113 (135) 95 2.0 03/10/17 00:00 Nasal Cannula 2.0 03/09/17 23:05 36.7 93 18 138/75 (96) 95 Nasal Cannula 2.0 Lab Results: Results Past 24 Hours Test 03/09/17 20:46 03/10/17 07:31 Range/Units Bedside Glucose 86 87 70-90 mg/dl
[2017-03-10] MEDS: PRAVASTATIN SOD 20 MG TAB PO SCH (21:24)
[2017-03-10] MEDS: DOXEPIN HCL 10 MG CAP PO SCH (21:24)
[2017-03-11 06:01] LABS: HEMATOCRIT 45.1 % (37-47); MEAN CELL VOLUME 91.9 fL (80-100); MEAN CORPUSCULAR HEMOGLOBIN 30.3 pg (25-34); PLATELET COUNT 314 K/uL (130-400); RED BLOOD COUNT 4.91 M/uL (4.2-5.4); WHITE BLOOD COUNT 12.06 K/uL (4.8-10.8)
[2017-03-11 06:33] LABS: BUN/CREATININE RATIO 31.3 (10-20); CALCIUM 9.9 mg/dl (8.5-10.1); CREATININE 0.67 mg/dl (0.60-1.20); POTASSIUM 3.4 mmol/L (3.5-5.1)
[2017-03-11] MEDS: CLONAZEPAM 0.5 MG TAB PO SCH ×2 (07:49→13:32)
[2017-03-11] MEDS: LANSOPRAZOLE SOLUTAB 30 MG PO SCH (07:50)
[2017-03-11] MEDS: HEPARIN SOD 5000 UNIT/0.5 ML CARP SQ SCH (07:51)
[2017-03-11 08:00] VITALS: O2SAT 96
[2017-03-11] MEDS ORDERED: POTASSIUM CHLORIDE 10 MEQ TABCR PO ONE (11:30)
--- NOTE | 2017-03-11 11:38 | Progress Note ---
Internal Med Progress Note Date of Service: Mar 11, 2017. Provider Documentation: SUBJECTIVE: Seen and examined at bedside Sitter at bedside No apparent distress Currently off oxygen Saturating 96% on room air Non verbal at baseline OBJECTIVE: Vital Signs-as noted below Physical Exam: General Appearance:Moderately built and nourished, no apparent distress Head: normocephalic, Atraumatic Eyes: normal inspection, EOMI, PERRL Neck: supple, Trachea midline Respiratory/Chest: Normal breath sounds, CTA Cardiovascular: S1, S2, No murmur Abdomen/GI:Soft, Non tender, Bowel sounds present Extremities/Musculoskelatal:normal inspection, no edema Neurologic/Psych:grossly no focal neurological deficits, + mental retardation Skin: normal color, warm Lab data as noted below. ASSESSMENT & PLAN: Acute Hypoxic Respiratory Failure: likely secondary to RUL and BAN Pneumonia Component of COPD; H/O bronchiectasis and aspiration Presented with profound hypoxia in the ER, O2 sats in the 60s required intubation CXR and CT suggestive of multifocal pneumonia Completed IV antibiotics S/P bronchoscopy but could not complete as desaturated S/P Extubation: 03/06/17 Continue PO prednisone taper, Nebs PRN Not wearing oxygen, as pulls off Saturating 96% on rrom air Right Perihilar and left base masses noted Noted before as well POA prefers to have tissue diagnosis Bronchoscopy + Biopsy failed Completed Antibiotic therapy Mental Retardation Stable Elevated Troponin: EKG suggests QT prolongation TTE Report: essentially no wall motion abnormalities, EF 55-60% * -- Conclusions -- * The left ventricle is normal in size. * There is normal left ventricular wall thickness. * No regional wall motion abnormalities noted. * Ejection Fraction = 55-60%. * The right ventricle is normal in size and function. * There is trace tricuspid regurgitation. * Doppler findings do not suggest pulmonary hypertension. The inferior vena cava is mildly dilated serial CM trended down no more cardiac issue Nutrition Enteral Feeding discontinued Speech evaluation completed Continue diet as per Speech therapy recommendation DVT Px: SQ Heparin GI prophylaxis On Prevcid DISPOSITION Plan to discharge back to [facility] when accepted Social service for discharge planning Follow up with for Primary Care on 03/16/17 at 10:05Am Complete the prednisone course as prescribed Seek immediate medical attention if your symptoms reoccur or worsen PROCEDURES: CTA: 1. No acute aortic pathology or evidence of pulmonary thromboembolic disease. 2. Multifocal consolidative alveolar opacities of the left greater than right upper lobes and to a lesser extent within the bilateral lower lobes suggests multifocal pneumonia. 3. Large irregular masslike areas of low attenuating consolidation with macroscopic fat attenuation of the perihilar right upper lobe and basal left lower lobe are again noted without significant change from 03/17/2009 study with 1.8 cm low attenuating consolidation of the right upper lobe mildly enlarged from comparison. Differential considerations would include chronic lipoid pneumonia, or pulmonary alveolar proteinosis among other etiologies. These findings could be correlated with bronchoscopy and tissue sampling for definitive diagnosis. 4. Low attenuating right hilar lymph node also noted. CT Head: No acute intracranial abnormality Speech Eval: * 1. Initiate a pureed diet, nectar thick liquids 2. STRICT aspiration precautions, NO straws. Fully upright for meals and for 30 minutes after meals. 3. Will need assistance with feeding. Small bites, slow rate. Only feed when awake, alert, and able to participate. Stop feeding with any increased signs of fatigue. 4. Stringent oral care as tolerated. Provide care prior to and after meals along with before bed. Monitor for any pocketing. 5. Speech will monitor closely for tolerance. Should any increased difficulty with swallowing or overt aspiration be evidenced, recommend returning to NPO status and video swallow study. Vital Signs: Date Time Temp Pulse Resp B/P (MAP) Pulse Ox O2 Delivery O2 Flow Rate FiO2 03/11/17 09:20 Room Air 03/10/17 23:35 Room Air 03/10/17 16:00 91 Room Air 03/10/17 14:03 88 Room Air Lab Results: Results Past 24 Hours Test 03/10/17 16:52 03/10/17 19:59 03/11/17 05:35 03/11/17 07:34 Range/Units Bedside Glucose 98 111 93 70-90 mg/dl White Blood Count 12.06 4.8-10.8 K/uL Red Blood Count 4.91 4.2-5.4 M/uL Hemoglobin 14.9 12.0-16.0 g/dL Hematocrit 45.1 37-47 % Mean Corpuscular Volume 91.9 80-100 fL Mean Corpuscular Hemoglobin 30.3 25-34 pg Mean Corpuscular Hemoglobin Concent 33.0 32-36 g/dl RDW Standard Deviation 49.7 36.4-46.3 fL RDW Coefficient of Variation 14.8 11.5-14.5 % Platelet Count 314 130-400 K/uL Mean Platelet Volume 10.0 7.4-10.4 fL Sodium Level 142 136-145 mmol/L Potassium Level 3.4 3.5-5.1 mmol/L Chloride Level 102 98-107 mmol/L Carbon Dioxide Level 35 21-32 mmol/L Anion Gap 5.0 3-11 mmol/L Blood Urea Nitrogen 21 7-18 mg/dl Creatinine 0.67 0.60-1.20 mg/dl Est Creatinine Clear Calc Drug Dose 110.0 ml/min Estimated GFR () 121.3 Estimated GFR (Non- 104.7 BUN/Creatinine Ratio 31.3 10-20 Random Glucose 98 70-99 mg/dl Calcium Level 9.9 8.5-10.1 mg/dl
[2017-03-11] MEDS ORDERED: PRED10TA PO (12:27)
--- NOTE | 2017-03-11 12:31 | Discharge Summary ---
Discharge Summary Date of Service Mar 11, 2017. Discharge Summary Admission Date: Feb 27, 2017 at 13:23 Discharge Date: Mar 11, 2017 Discharge Disposition: [facility] facility Principal Diagnosis: Acute respiratory failure, Pneumonia Procedures: CT Head: No acute intracranial abnormality. CTA: 1. No acute aortic pathology or evidence of pulmonary thromboembolic disease. 2. Multifocal consolidative alveolar opacities of the left greater than right upper lobes and to a lesser extent within the bilateral lower lobes suggests multifocal pneumonia. 3. Large irregular masslike areas of low attenuating consolidation with macroscopic fat attenuation of the perihilar right upper lobe and basal left lower lobe are again noted without significant change from 03/17/2009 study with 1.8 cm low attenuating consolidation of the right upper lobe mildly enlarged from comparison. Differential considerations would include chronic lipoid pneumonia, or pulmonary alveolar proteinosis among other etiologies. These findings could be correlated with bronchoscopy and tissue sampling for definitive diagnosis. 4. Low attenuating right hilar lymph node also noted. ECHO: * The left ventricle is normal in size. * There is normal left ventricular wall thickness. * No regional wall motion abnormalities noted. * Ejection Fraction = 55-60%. * The right ventricle is normal in size and function. * There is trace tricuspid regurgitation. * Doppler findings do not suggest pulmonary hypertension. * The inferior vena cava is mildly dilated. Consultations: [facility] Plans Staff Officer Pending Studies/Follow-Up: Follow up with for Primary Care on 03/16/17 at 10:05Am Complete the prednisone course as prescribed Seek immediate medical attention if your symptoms reoccur or worsen Speech Therapy Recommendations: 1. Pureed diet, nectar thick liquids 2. STRICT aspiration precautions, NO straws. Fully upright for meals and for 30 minutes after meals. 3. Will need assistance with feeding. Small bites, slow rate. Only feed when awake, alert, and able to participate. Stop feeding with any increased signs of fatigue. 4. Stringent oral care as tolerated. Provide care prior to and after meals along with before bed. Monitor for any pocketing. Medication Reconciliation New Medications: Prednisone Tab (Prednisone) 10 Mg Tab 10 MG PO UD for 8 Days, #15 TAB Start taking 30mg for 2 days, then 20mg for 3 days, then 10mg for 3 days and stop Continued Medications: Acetaminophen (Tylenol) 500 Mg Tab 500 MG PO Q4 PRN for Pain or Fever, TAB Albuterol Sulf (Proventil 0.083% 2.5MG/3ML) 2.5 Mg/3 Ml Nebu 2.5 MG INH Q2H PRN, EA Aluminum/Magnesium/Simeth (Maalox Max Susp) Susp 30 ML PO Q4H PRN for Indigestion Amoxicillin (Amoxil) 500 Mg Cap 2000 MG PO UD PRN, CAP PRIOR TO DENTAL APPOINTMENT. Bisacodyl (Dulcolax) 10 Mg Sup 1 SUPP CA UD PRN, SUP 1 SUPPOSITORY RECTALLY ON THE 3RD DAY OF NO BOWEL MOVEMENT,OR NO MORE THAN 3 BM'S IN A 3 DAY PERIOD Clonazepam (Klonopin) 0.5 Mg Tab 0.5 MG PO TID, 0 Refills Dermatological Products, Misc. (Liquid Bandage) 1 Liq Liq 1 APPLN TOP PRN for CUTS,SCRAPES Dextromethorphan-Guaifenesin (Robitussin-Dm Syrup) 1 Syp Syp 10 ML PO Q6 PRN for Cough Diazepam (Valium) 5 Mg Tab 5 MG PO QD@2000, 0 Refills Diazepam (Valium) 5 Mg Tab 2.5 MG PO BID, TAB TAKE HALF A TABLET AT 0800 AND 1600 HOURS. Diphenhydramine Hcl (Benadryl Allergy) 25 Mg Tab 1 TAB PO Q6H PRN for Itching Docusate Sodium (Docusate Sodium) 100 Mg Cap 100 MG PO BID Doxepin Hcl (Sinequan) 10 Mg Cap 10 MG PO QD@2000, CAP Ethinyl Estradiol/Levonorgest (Rhodelia-28) 1 Tab Tab 1 TAB PO DAILY ONE TABLET DAILY FOR 84 DAY THEN 7 DAYS OFF. Fexofenadine Hcl (Nasrin) 180 Mg Tab 180 MG PO DAILY, TAB Fluticasone Propionate (Nasal) (Flonase Allergy Relief) 50 Mcg/Act Spr 2 SPRAYS RAGHAV DAILY Guaifenesin Ext Rel (Mucinex Ext Rel) 600 Mg Tabcr 1200 MG PO BID, TAB Hydrocortisone (Topical) (Cortizone-10) 1 % Oin 1 APPLN TOP TID PRN for RASH Ibuprofen (Ibuprofen) 200 Mg Cap 400 MG PO Q6 PRN for MENSTRUAL CRAMPS Lactobacillus (Floranex) 1 Tab Tab Loperamide Hcl (Imodium A-D) 2 Mg Tab 2 MG PO UD PRN for Diarrhea Magnesium Oxide (Mag-Ox) 400 Mg Tab 400 MG PO BID, 0 Refills Montelukast Sodium (Singulair) 10 Mg Tab 10 MG PO HS, TAB Multiple Vitamin (Multivitamin) 1 Tab Tab 1 TABLET PO DAILY, TAB Neomycin/Polymyx/Bacitr (Neosporin) Oint 1 APPL TOP PRN for CUTS,SCRAPES Nystatin-Triamcinolone (Nystatin/Triamcinolon... 099110-7.1 Unit/gm-%) 1 Oin Oin 1 APPLN TD TID PRN for PRN Omeprazole (Prilosec) 20 Mg Capcr 20 MG PO DAILY, CAP Potassium Chloride (Micro-K Ext Rel) 10 Meq Capcr 10 MEQ PO BID, CAP Powders (Vagisil Deodorant) 1 Pow Pow 1 APPL TOP UD PRN for VAGINAL ICTH/REDNESS UP TO 8 TIMES A DAY Pravastatin Sodium (Pravachol) 20 Mg Tab 20 MG PO HS, TAB Sertraline (Zoloft) 25 Mg Tab 25 MG PO DAILY, TAB Starch-Maltodextrin (Thickenin (Thick-It Original) 1 Pow Pow PO TO ALL DRINKS Trazodone Hcl (Trazodone) 100 Mg Tab 100 MG PO UD, TAB Admission Information HPI (per Admitting provider): This is a 46 year old female with a PMH of Angelman's syndrome, mental retardation, hx. of recurrent aspiration pneumonia, hx. of epilepsy - presented from her [facility] ([facility]). She was initially taken to urgent care - noted to have oxygenation in the 70s. After a few CXR's - her caretakers were told to bring her to the ED. She was brought in by litter van - her O2 sats in the ED were in the 60s and 70s. She was cyanotic and was also agitated. She was fighting and due to this to protect her and her airway - it was decided that she would be intubated. CXR and CT chest were obtained and suggestive of multifocal pneumonia. She has had a history of aspiration issues in the past. Physical Exam (per Admitting): General Appearance: + pertinent finding (intubated and sedated) Respiratory/Chest: + crackles (diffusely) Cardiovascular: regular rate, rhythm, no edema, no murmur Abdomen/GI: normal bowel sounds, non tender, soft Extremities/Musculoskelatal: normal inspection, normal capillary refill, no pedal edema Neurologic/Psych: + pertinent finding (she is sedated and intubated) Skin: + pertinent finding (cold, cool skin) Hospital Course Acute Hypoxic Respiratory Failure: likely secondary to RUL and BAN Pneumonia Component of COPD; H/O bronchiectasis and aspiration Presented with profound hypoxia in the ER, O2 sats in the 60s required intubation CXR and CT suggestive of multifocal pneumonia Completed IV antibiotics S/P bronchoscopy but could not complete as desaturated S/P Extubation: 03/06/17 Continue PO prednisone taper, Nebs PRN Not wearing oxygen, as pulls off Saturating 96% on rrom air Right Perihilar and left base masses noted Noted before as well POA prefers to have tissue diagnosis Bronchoscopy + Biopsy failed Completed Antibiotic therapy Mental Retardation Stable Elevated Troponin: EKG suggests QT prolongation TTE Report: essentially no wall motion abnormalities, EF 55-60% * -- Conclusions -- * The left ventricle is normal in size. * There is normal left ventricular wall thickness. * No regional wall motion abnormalities noted. * Ejection Fraction = 55-60%. * The right ventricle is normal in size and function. * There is trace tricuspid regurgitation. * Doppler findings do not suggest pulmonary hypertension. The inferior vena cava is mildly dilated serial CM trended down no more cardiac issue Nutrition Enteral Feeding discontinued Speech evaluation completed Continue diet as per Speech therapy recommendation DVT Px: SQ Heparin GI prophylaxis On Prevcid DISPOSITION Plan to discharge back to [facility] when accepted Social service for discharge planning Follow up with for Primary Care on 03/16/17 at 10:05Am Complete the prednisone course as prescribed Seek immediate medical attention if your symptoms reoccur or worsen PROCEDURES: CTA: 1. No acute aortic pathology or evidence of pulmonary thromboembolic disease. 2. Multifocal consolidative alveolar opacities of the left greater than right upper lobes and to a lesser extent within the bilateral lower lobes suggests multifocal pneumonia. 3. Large irregular masslike areas of low attenuating consolidation with macroscopic fat attenuation of the perihilar right upper lobe and basal left lower lobe are again noted without significant change from 03/17/2009 study with 1.8 cm low attenuating consolidation of the right upper lobe mildly enlarged from comparison. Differential considerations would include chronic lipoid pneumonia, or pulmonary alveolar proteinosis among other etiologies. These findings could be correlated with bronchoscopy and tissue sampling for definitive diagnosis. 4. Low attenuating right hilar lymph node also noted. CT Head: No acute intracranial abnormality Speech Eval: * 1. Initiate a pureed diet, nectar thick liquids 2. STRICT aspiration precautions, NO straws. Fully upright for meals and for 30 minutes after meals. 3. Will need assistance with feeding. Small bites, slow rate. Only feed when awake, alert, and able to participate. Stop feeding with any increased signs of fatigue. 4. Stringent oral care as tolerated. Provide care prior to and after meals along with before bed. Monitor for any pocketing. 5. Speech will monitor closely for tolerance. Should any increased difficulty with swallowing or overt aspiration be evidenced, recommend returning to NPO status and video swallow study. Total time spent on discharge = 35 minutes This includes examination of the patient, discharge planning, medication reconciliation, and communication with other providers. Discharge Instructions Discharge Instructions Date of Service Mar 11, 2017. Admission Reason for Admission: Acute Respiratory Failure With Hypoxia Discharge Discharge Diagnosis / Problem: Acute respiratory failure, Pneumonia Discharge Goals Goal(s): Decrease discomfort, Improve function Activity Recommendations Activity Limitations: resume your previous activity Exercise/Sports Limitations: as tolerated . Instructions / Follow-Up Instructions / Follow-Up Follow up with for Primary Care on 03/16/17 at 10:05Am Complete the prednisone course as prescribed Seek immediate medical attention if your symptoms reoccur or worsen Speech Therapy Recommendations: 1. Pureed diet, nectar thick liquids 2. STRICT aspiration precautions, NO straws. Fully upright for meals and for 30 minutes after meals. 3. Will need assistance with feeding. Small bites, slow rate. Only feed when awake, alert, and able to participate. Stop feeding with any increased signs of fatigue. 4. Stringent oral care as tolerated. Provide care prior to and after meals along with before bed. Monitor for any pocketing. Current Hospital Diet Patient's current hospital diet: Regular Diet 1. Pureed diet, nectar thick liquids 2. STRICT aspiration precautions, NO straws. Fully upright for meals and for 30 minutes after meals. 3. Will need assistance with feeding. Small bites, slow rate. Only feed when awake, alert, and able to participate. Stop feeding with any increased signs of fatigue. 4. Stringent oral care as tolerated. Provide care prior to and after meals along with before bed. Monitor for any pocketing. Discharge Diet Recommended Diet: Regular Diet Pending Studies Studies pending at discharge: no Laboratory Results Hemoglobin A1c Test 02/28/17 06:14 Range/Units Estimated Average Glucose 117 mg/dl Hemoglobin A1c 5.7 H 4.5-5.6 % Medical Emergencies . Who to Call and When: Medical Emergencies: If at any time you feel your situation is an emergency, please call 911 immediately. . Non-Emergent Contact Non-Emergency issues call your: Primary Care Provider Call Non-Emergent contact if: you have a fever, your pain is not controlled, your pain is worsening, your pain is unusual for you, your pain is concerning you, you have any medication questions Seek immediate medical attention if your symptoms reoccur or worsen . . "Provider Documentation" section prepared by Bello Mcrae. . VTE Core Measure Inpt VTE Proph given/why not?: Unfractionated heparin SQ <Electronically signed by Bello Mcrae MD> Signed: 03/11/17 1231 Signed: The status of this report is Signed * If report status is Draft, the document has not been finalized by the responsible provider.
[2017-03-24] MEDS ORDERED: ALUMSUS2 PO (13:52)
[2017-03-24] MEDS ORDERED: LACT1TAB4 PO (13:52)
[2017-03-24] MEDS ORDERED: SERT25TA PO (13:52)
[2017-03-24] MEDS ORDERED: FLUT0.15 NAE (13:52)
[2017-03-24] MEDS ORDERED: MULTTAB58 PO (14:00)
== END 2017-03-11 15:30 | disposition home or self-care (01) | DRG 207 ==
LOC: C.EDB 11:22 → C.MSICU 13:23 → UNDOADMIN 13:23 → ENRESERV 14:46 → C.2E 03-06 12:47 → ENRESERV 03-09 13:25 → C.MS4W 03-09 13:48
PROVIDERS: ADMIT Family Medicine; ATTEND Internal Medicine
PROC: 5A1955Z Respiratory Ventilation, Greater than 96 Consecutive Hours (ICD-10-PCS; principal; 2017-02-27)
PROC: 0BH17EZ Insertion of Endotracheal Airway into Trachea, Via Natural or Artificial Opening (ICD-10-PCS; principal; 2017-02-27)
PROC: 0BC18ZZ Extirpation of Matter from Trachea, Via Natural or Artificial Opening Endoscopic (ICD-10-PCS; 2017-03-01)
DX: J69.0 Pneumonitis due to inhalation of food and vomit (principal); J96.01 Acute respiratory failure with hypoxia; J96.02 Acute respiratory failure with hypercapnia; F72 Severe intellectual disabilities; Q93.5 Other deletions of part of a chromosome; J44.0 Chronic obstructive pulmonary disease with (acute) lower respiratory infection; E78.5 Hyperlipidemia, unspecified; R91.8 Other nonspecific abnormal finding of lung field; J98.09 Other diseases of bronchus, not elsewhere classified; K59.00 Constipation, unspecified; Z79.899 Other long term (current) drug therapy; Z88.8 Allergy status to other drugs, medicaments and biological substances

== ENCOUNTER 2017-03-24 14:09 | Emergency (ER) | payer OTHER ==
[~2017-03-24 14:09] MED LIST changes: -ALUMSUS PO; +ALUMSUS2 PO; +DIPH1TAB87 PO; -DIPH25TA24 PO; -FENTANYL CITRATE INJ 50 MCG/1 ML 2 ML VIAL IV ONE; -FLNIN NAE; +FLUT0.15 NAE; -KETAMINE HCL INJ 50 MG/ML 10 ML VIAL IV ONE; +LACT1TAB4 PO; -MIDAZOLAM HCL 5 MG/ML 2ML VIAL IV ONE; +MULTTAB58 PO; +NYST1OIN9 TD; -NYSTPOW2 TOP; -POTA-327 PO; +POTA10CA28 PO; +SERT25TA PO; -SODIUM CHLORIDE 0.9% 10ML FLUSH IV ONE; -SODIUM CHLORIDE 0.9% 2.5 ML FLUSH IV ONE; -SODIUM CHLORIDE 0.9% INJ 10 ML VIAL IV ONE; +TRAZ100T29 PO; -VECURONIUM BROMIDE 10 MG VIAL IV ONE
[2017-03-24] MEDS ORDERED: DIAZ-165 PO (15:09)
[2017-03-24] MEDS ORDERED: MAGN400T6 PO (15:09)
[2017-03-24] MEDS ORDERED: LORAZEPAM 1 MG TAB SL STA (15:21)
[2017-03-24] MEDS ORDERED: GUAI100S16 PO (15:51)
[2017-03-24] MEDS ORDERED: POLY1POW2 PO (15:51)
[2017-03-24] MEDS ORDERED: [UNRECOGNIZED DRUG - CODE] PO (15:51)
[2017-03-24] MEDS ORDERED: TRAZ1TAB52 PO (15:51)
--- NOTE | 2017-03-24 15:55 | EMERGENCY ROOM VISIT NOTE ---
History First contact with patient: 14:56 Chief Complaint: UNABLE TO VOID Stated Complaint: NO URINARY OUTPUT SINCE 3PM YESTERDAY Nursing Triage Summary: Pt. is here with nursing care from her detention. They report she is incontinent but has not voided in 24 hours. Unable to bladder scan at this time, nursing care staff from home reports they typically have to restrain pt. to do anything. History of Present Illness The patient is a 46 year old female who presents to the Emergency Room with complaints of no urinary output since yesterday at 3PM (approx 24 hours). The history was obtained from the nursing rides supervisor as the patient is nonverbal at baseline and has a history of special needs. They reported that she is normally incontinent but has not wet her briefs in over 24 hours. They deny any behavioral changes, and state she has not had fever or chills. They did note that she had 2 loose bowel movements. They were unable to obtain vitals or bladder scan her as they typically need restraints in order to examine her. Her only medication change was the addition of albuterol pills that were given to her after her admission from February 27 to the with aspiration pneumonia. Review of Systems Unable to obtain a review of systems due to patient's mental status. Past Medical/Surgical History Medical Problems: (1) Acute respiratory failure with hypoxia (2) ANXIETY STATE NOS (3) Aspiration pneumonia (4) HYPERLIPIDEMIA NEC/NOS (5) HYPOXEMIA (6) SEVERE MENTAL RETARDAT Family History FHx: cancer Social History Smoking Status: Never Smoker Alcohol Use: none Drug Use: none Marital Status: single Housing Status: assisted living Occupation Status: disabled Current/Historical Medications Scheduled Diazepam (Valium), 5 MG PO TID Docusate Sodium (Silace), 100 MG PO BID Doxepin Hcl (Sinequan), 10 MG PO QD@2000 Fexofenadine Hcl (Nasrin), 180 MG PO QAM Fluticasone Propionate (Nasal) (Flonase Allergy Relief), 2 SPRAYS RAGHAV QAM Guaifenesin (Guaifenesin), 20 ML PO BID Lactobacillus (Floranex), 2 TABS PO BID Levonorgestrel & Eth Estradiol (Marlissa), 1 TAB PO UD Magnesium Oxide (Mag-Ox), 400 MG PO BID Montelukast Sodium (Singulair), 10 MG PO HS Multiple Vitamin (Multivitamin), 1 TABLET PO DAILY Omeprazole (Prilosec), 20 MG PO DAILY Polyethylene Glycol 3350 (Bulk (Polyethylene Glycol 3350), 17 GM PO Q2D Potassium Chloride (K-Tabs), 10 MEQ PO BID Pravastatin Sodium (Pravachol), 20 MG PO HS Psyllium (Metamucil), 1 TBS PO BID Sertraline (Zoloft), 25 MG PO DAILY Starch-Maltodextrin (Thickenin (Thick-It Original), 1 DOSE PO UD Trazodone Hcl (Desyrel), 150 MG PO HS Scheduled PRN Acetaminophen (Acetaminophen), 650 MG PO Q4H PRN for SOLO/General Discomfort/Fever Albuterol Sulf (Proventil 0.083% 2.5MG/3ML), 2.5 MG NEB Q6H PRN for SOB/Wheezing Aluminum/Magnesium/Simeth (Maalox Max Susp), 30 ML PO QID PRN for Indigestion Amoxicillin (Amoxil), 2,000 MG PO UD PRN for Prior to Dental Appointment(s) Loperamide Hcl (Imodium A-D), 4 MG PO UD PRN for Diarrhea Naproxen (Naproxen), 375 MG PO BID PRN for Pain Neomycin/Polymyx/Bacitr (Neosporin), 1 APPLN TOP UD PRN for Minor Cuts/Abrasion( s) Powders (Vagisil Deodorant), 1 APPL TOP UD PRN for Vaginal Redness/Itch [Solarcaine Aloe Gel], 1 APPLN TOP TID PRN for Sunburn Physical Exam Vital Signs Date Time Temp Pulse Resp B/P (MAP) Pulse Ox O2 Delivery O2 Flow Rate FiO2 03/24/17 14:15 20 Room Air Physical Exam Unable to obtain a full physical examination due to lack of cooperation. General: Patient is awake, alert. She is active and moving around her room in a wheelchair. Medical Decision & Procedures Laboratory Results 03/24/17 17:15 Red Blood Count 4.48, Mean Corpuscular Volume 95.8, Mean Corpuscular Hemoglobin 30.1, Mean Corpuscular Hemoglobin Concent 31.5, Mean Platelet Volume 9.4, Neutrophils (%) (Auto) 56.0, Lymphocytes (%) (Auto) 24.8, Monocytes (%) (Auto) 13.5, Eosinophils (%) (Auto) 5.2, Basophils (%) (Auto) 0.4, Neutrophils # (Auto ) 3.98, Lymphocytes # (Auto) 1.76, Monocytes # (Auto) 0.96, Eosinophils # (Auto ) 0.37, Basophils # (Auto) 0.03 03/24/17 17:15 Test 03/24/17 17:15 White Blood Count 7.11 K/uL (4.8-10.8) Red Blood Count 4.48 M/uL (4.2-5.4) Hemoglobin 13.5 g/dL (12.0-16.0) Hematocrit 42.9 % (37-47) Mean Corpuscular Volume 95.8 fL (80-100) Mean Corpuscular Hemoglobin 30.1 pg (25-34) Mean Corpuscular Hemoglobin Concent 31.5 g/dl (32-36) Platelet Count 253 K/uL (130-400) Mean Platelet Volume 9.4 fL (7.4-10.4) Neutrophils (%) (Auto) 56.0 % Lymphocytes (%) (Auto) 24.8 % Monocytes (%) (Auto) 13.5 % Eosinophils (%) (Auto) 5.2 % Basophils (%) (Auto) 0.4 % Neutrophils # (Auto) 3.98 K/uL (1.4-6.5) Lymphocytes # (Auto) 1.76 K/uL (1.2-3.4) Monocytes # (Auto) 0.96 K/uL (0.11-0.59) Eosinophils # (Auto) 0.37 K/uL (0-0.5) Basophils # (Auto) 0.03 K/uL (0-0.2) RDW Standard Deviation 55.4 fL (36.4-46.3) RDW Coefficient of Variation 16.2 % (11.5-14.5) Immature Granulocyte % (Auto) 0.1 % Immature Granulocyte # (Auto) 0.01 K/uL (0.00-0.02) Anion Gap 4.0 mmol/L (3-11) Estimated GFR () 94.6 Estimated GFR (Non- 81.6 BUN/Creatinine Ratio 6.1 (10-20) Calcium Level 9.6 mg/dl (8.5-10.1) Medications Administered Medications (Trade) Dose Ordered Sig/Kiera Route Start Time Stop Time Status Last Admin Dose Admin Lorazepam (Ativan Tab) 1 mg NOW STAT SL 03/24/17 15:21 03/24/17 15:24 DC 03/24/17 15:34 1 MG ED Course 14:46: The patient was evaluated in room A2. A complete history and physical exam was performed. 15:00: The case was discussed with Dr. Waldrop. 15:15: The patient was seen with Dr. Waldrop 15:21: 1mg sublingual ativan ordered 15:45: The patient was reassessed. She is slightly calmer. I was able to auscultate her heart and lungs and palpate her flanks to assess for pain. She did not give any indication of being in pain. 16:30: The patient was reassessed. No changes. 17:50: The patient was bladder scanned and found to have 160mls in her bladder. Discussed this and blood-work findings with her nursing rides supervisor who was agreeable for discharge. Medical Decision Differential Diagnosis includes kidney stone, renal failure, ureteral or kidney tumor, dehydration amongst other etiologies. Ms. Vaughan is a 46 year old female who reportedly did not produce any urine for over 24 hours as per the staff at her detention. We were unable to examine her fully given lack of cooperation, but she did not exhibit any signs of pain or tenderness. She did not exhibit flank tenderness, auscultation of her heart and lungs were normal, she was at her baseline with regards to behaviour and activity. Her CBC and BMP were unremarkable. Her bladder scan revealed 160mls of fluid. This was discussed with her nursing rides supervisor, and she was felt safe for discharge. They were also counselled on returning if she developed fever, chills, behavioural changes, or they continued to notice a lack of urine production. Impression Primary Impression: Urine output low Departure Information Referrals Juan Lowry D.OClaude (PCP) Patient Instructions My [facility] Additional Instructions Ms. Vaughan was admitted to [facility] due to the fact that she did not produce urine in over 24 hours. Her blood work and limited examination at the hospital was all normal, namely she did not have any signs of infection, nor was there any signs of kidney injury. Her bladder scan revealed 160mls of fluid in her bladder, which is normal, and not what one would expect in someone who is retaining urine. We feel at this time that she is safe for discharge, given that there were no abnormal finding on our investigations. If she does, however, develop a fever, chills, shows signs of being in pain or discomfort, or continues not to produce urine, please seek medical attention. Resident Tracking Resident Involvement: Resident Care Provided Care Provided: Adult ED
[2017-03-24] MEDS ORDERED: PSYL48.59 PO (16:03)
[2017-03-24] MEDS ORDERED: DOCU10LI PO (16:03)
[2017-03-24] MEDS ORDERED: POTA10TA PO (16:03)
[2017-03-24] MEDS ORDERED: NAPR-1221 PO (16:06)
[2017-03-24] MEDS ORDERED: ACET-1346 PO (16:12)
[2017-03-24] MEDS ORDERED: NEOMOIN3 TOP (16:20)
[2017-03-24] MEDS ORDERED: LOPE-5 PO (16:20)
[2017-03-24] MEDS ORDERED: SOLARCAINE ALOE TOP (16:20)
[2017-03-24 17:23] LABS: BASO % 0.4 %; BASO ABS # 0.03 K/uL (0-0.2); EOS % 5.2 %; EOS ABS # 0.37 K/uL (0-0.5); HEMATOCRIT 42.9 % (37-47); HEMOGLOBIN 13.5 g/dL (12.0-16.0); IG# 0.01 K/uL (0.00-0.02); LYMPH % 24.8 %; LYMPH ABS # 1.76 K/uL (1.2-3.4); MEAN CELL VOLUME 95.8 fL (80-100); MEAN CORPUSCULAR HEMOGLOBIN 30.1 pg (25-34); MEAN CORPUSCULAR HGB CONC 31.5 g/dl (32-36); MEAN PLATELET VOLUME 9.4 fL (7.4-10.4); MONO % 13.5 %; MONO ABS # 0.96 K/uL (0.11-0.59); NEUT ABS # 3.98 K/uL (1.4-6.5); PLATELET COUNT 253 K/uL (130-400); RED CELL DISTRIBUTION WIDTH CV 16.2 % (11.5-14.5); RED CELL DISTRIBUTION WIDTH SD 55.4 fL (36.4-46.3); WHITE BLOOD COUNT 7.11 K/uL (4.8-10.8)
[2017-03-24 17:42] LABS: BLOOD UREA NITROGEN 5 mg/dl (7-18); CALCIUM 9.6 mg/dl (8.5-10.1); CARBON DIOXIDE 32 mmol/L (21-32); CREATININE 0.85 mg/dl (0.60-1.20); GLUCOSE 92 mg/dl (70-99); POTASSIUM 4.7 mmol/L (3.5-5.1); SODIUM 139 mmol/L (136-145)
[2017-03-24] MEDS ORDERED: PRLSR20 PO (17:42)
[2017-03-24] MEDS ORDERED: [UNRECOGNIZED DRUG - CODE] TOP (17:42)
[2017-03-24] MEDS ORDERED: STARPOW19 PO (17:42)
--- NOTE | 2017-03-24 18:46 | EMERGENCY ROOM VISIT NOTE ---
History Report prepared by Luma: Gustavo Castillo Under the Supervision of: Dr. Humza Waldrop M.D. First contact with patient: 14:56 Chief Complaint: UNABLE TO VOID Stated Complaint: NO URINARY OUTPUT SINCE 3PM YESTERDAY Nursing Triage Summary: Pt. is here with nursing care from her [place] [facility]. They report she is incontinent but has not voided in 24 hours. Unable to bladder scan at this time, nursing care staff from home reports they typically have to restrain pt. to do anything. History of Present Illness The patient is a 46 year old female who presents to the Emergency Room with complaints of a constant inability to urinate beginning 24 hours ago. The patient's nursing putty and caulking supervisor states the patient is usually incontinent, and her underwear has been dry. She reports the patient has a history of MR and is nonverbal. The putty and caulking supervisor notes the patient had two loose bowel movements yesterday. She states the patient was in the hospital from the to the 13 of March for aspirational pneumonia. The putty and caulking supervisor reports the patient has not had behavior changes, fevers, and chills. HPI limited secondary to the patient's lack of cooperation and developmental delay. Source of History: nursing staff (putty and caulking supervisor) History Limited By: poor cooperation, other (developmental delay) Review of Systems ROS limited secondary to the patient's lack of cooperation and developmental delay. Past Medical & Surgical Medical Problems: (1) Acute respiratory failure with hypoxia (2) ANXIETY STATE NOS (3) Aspiration pneumonia (4) HYPERLIPIDEMIA NEC/NOS (5) HYPOXEMIA (6) SEVERE MENTAL RETARDAT Family History FHx: cancer Social History Smoking Status: Never Smoker Alcohol Use: none Drug Use: none Marital Status: single Housing Status: assisted living Occupation Status: disabled Current/Historical Medications Scheduled Diazepam (Valium), 5 MG PO TID Docusate Sodium (Silace), 100 MG PO BID Doxepin Hcl (Sinequan), 10 MG PO QD@2000 Fexofenadine Hcl (Nasrin), 180 MG PO QAM Fluticasone Propionate (Nasal) (Flonase Allergy Relief), 2 SPRAYS RAGHAV QAM Guaifenesin (Guaifenesin), 20 ML PO BID Lactobacillus (Floranex), 2 TABS PO BID Levonorgestrel & Eth Estradiol (Marlissa), 1 TAB PO UD Magnesium Oxide (Mag-Ox), 400 MG PO BID Montelukast Sodium (Singulair), 10 MG PO HS Multiple Vitamin (Multivitamin), 1 TABLET PO DAILY Omeprazole (Prilosec), 20 MG PO DAILY Polyethylene Glycol 3350 (Bulk (Polyethylene Glycol 3350), 17 GM PO Q2D Potassium Chloride (K-Tabs), 10 MEQ PO BID Pravastatin Sodium (Pravachol), 20 MG PO HS Psyllium (Metamucil), 1 TBS PO BID Sertraline (Zoloft), 25 MG PO DAILY Starch-Maltodextrin (Thickenin (Thick-It Original), 1 DOSE PO UD Trazodone Hcl (Desyrel), 150 MG PO HS Scheduled PRN Acetaminophen (Acetaminophen), 650 MG PO Q4H PRN for SOLO/General Discomfort/Fever Albuterol Sulf (Proventil 0.083% 2.5MG/3ML), 2.5 MG NEB Q6H PRN for SOB/Wheezing Aluminum/Magnesium/Simeth (Maalox Max Susp), 30 ML PO QID PRN for Indigestion Amoxicillin (Amoxil), 2,000 MG PO UD PRN for Prior to Dental Appointment(s) Loperamide Hcl (Imodium A-D), 4 MG PO UD PRN for Diarrhea Naproxen (Naproxen), 375 MG PO BID PRN for Pain Neomycin/Polymyx/Bacitr (Neosporin), 1 APPLN TOP UD PRN for Minor Cuts/Abrasion( s) Powders (Vagisil Deodorant), 1 APPL TOP UD PRN for Vaginal Redness/Itch [Solarcaine Aloe Gel], 1 APPLN TOP TID PRN for Sunburn Allergies Coded Allergies: Etomidate (Verified Allergy, Unknown, UNKNOWN, 02/27/17) Haloperidol (Verified Allergy, Unknown, 02/27/17) Physical Exam Vital Signs Date Time Temp Pulse Resp B/P (MAP) Pulse Ox O2 Delivery O2 Flow Rate FiO2 03/24/17 14:15 20 Room Air Physical Exam Constitutional: Vital signs reviewed but not complete. Exam limited secondary to the patient's lack of cooperation and developmental delay Eyes: Conjunctiva are noninjected. ENT: Neck supple without meningeal signs. Respiratory: Clear to auscultation bilaterally. Breath sounds are equal bilaterally. Cardiovascular: Regular rate and rhythm. No rubs or gallops. GI: Soft, nondistended and nontender. Bowel sounds are present. Musculoskeletal: No peripheral edema. Integumentary: No cyanosis. Neurological: The patient is awake and alert. No focal deficits. Psychiatric: Unable to assess. Medical Decision & Procedures Laboratory Results 03/24/17 17:15 Red Blood Count 4.48, Mean Corpuscular Volume 95.8, Mean Corpuscular Hemoglobin 30.1, Mean Corpuscular Hemoglobin Concent 31.5, Mean Platelet Volume 9.4, Neutrophils (%) (Auto) 56.0, Lymphocytes (%) (Auto) 24.8, Monocytes (%) (Auto) 13.5, Eosinophils (%) (Auto) 5.2, Basophils (%) (Auto) 0.4, Neutrophils # (Auto ) 3.98, Lymphocytes # (Auto) 1.76, Monocytes # (Auto) 0.96, Eosinophils # (Auto ) 0.37, Basophils # (Auto) 0.03 03/24/17 17:15 Test 03/24/17 17:15 White Blood Count 7.11 K/uL (4.8-10.8) Red Blood Count 4.48 M/uL (4.2-5.4) Hemoglobin 13.5 g/dL (12.0-16.0) Hematocrit 42.9 % (37-47) Mean Corpuscular Volume 95.8 fL (80-100) Mean Corpuscular Hemoglobin 30.1 pg (25-34) Mean Corpuscular Hemoglobin Concent 31.5 g/dl (32-36) Platelet Count 253 K/uL (130-400) Mean Platelet Volume 9.4 fL (7.4-10.4) Neutrophils (%) (Auto) 56.0 % Lymphocytes (%) (Auto) 24.8 % Monocytes (%) (Auto) 13.5 % Eosinophils (%) (Auto) 5.2 % Basophils (%) (Auto) 0.4 % Neutrophils # (Auto) 3.98 K/uL (1.4-6.5) Lymphocytes # (Auto) 1.76 K/uL (1.2-3.4) Monocytes # (Auto) 0.96 K/uL (0.11-0.59) Eosinophils # (Auto) 0.37 K/uL (0-0.5) Basophils # (Auto) 0.03 K/uL (0-0.2) RDW Standard Deviation 55.4 fL (36.4-46.3) RDW Coefficient of Variation 16.2 % (11.5-14.5) Immature Granulocyte % (Auto) 0.1 % Immature Granulocyte # (Auto) 0.01 K/uL (0.00-0.02) Anion Gap 4.0 mmol/L (3-11) Estimated GFR () 94.6 Estimated GFR (Non- 81.6 BUN/Creatinine Ratio 6.1 (10-20) Calcium Level 9.6 mg/dl (8.5-10.1) Laboratory results as reviewed by me. Medications Administered Medications (Trade) Dose Ordered Sig/Kiera Route Start Time Stop Time Status Last Admin Dose Admin Lorazepam (Ativan Tab) 1 mg NOW STAT SL 03/24/17 15:21 03/24/17 15:24 DC 03/24/17 15:34 1 MG ED Course 1457: The patient was evaluated in room A02 by the resident under my supervision. A complete history and physical exam was performed. 1512: The patient was evaluated in room A02 by me. A complete history and physical exam was performed. 1521: Ordered Lorazepam 1mg SL 1749: After performing a bladder scan, the patient had 100cc of urine. Her renal function is normal per blood work. The resident discussed discharge instructions with the patient's putty and caulking supervisor. She understands the treatment plan and discharge instructions. Medical Decision This is a 46-year-old female who presents with decreased urination for 24 hours. Differential diagnosis includes anuria, renal failure, UTI, obstruction. I did perform a limited focused review of portions of the patient' s old chart on the electronic medical record. The patient was admitted for respiratory failure and aspiration pneumonia on February 27. I did evaluate the patient as noted above. Examination is difficult and the patient usually has to be sedated or restrained. We did give her Ativan 1 mg sublingually 2. A bladder scan was performed which did not show a significant amount of urine in her bladder. I did order and review the patient's blood work as noted in the electronic medical record. Renal function is normal. At this time it is unclear why they are seeing decreased urination. She does not have signs of renal failure or urinary retention. We did recommend they follow up closely with her family doctor. She was discharged in good condition. Resident Physician Supervision Note: I did evaluate and examine this patient myself. I did guide management for the patient. I agree with the resident's Dr. Everett Caruso assessment as discussed. Please see the resident's dictation for further details. Medication Reconcilliation Current Medication List: was personally reviewed by me Blood Pressure Screening Unobtainable secondary to the patient's poor cooperation and developmental delays. Impression Primary Impression: Decreased urination Scribe Attestation The scribe's documentation has been prepared under my direct and personally reviewed by me in its entirety. I confirm that the note above accurately reflects all work, treatment, procedures, and medical decision making performed by me. Departure Information Dispostion Home / Self-Care Referrals Juan Lowry D.O. (PCP) Forms HOME CARE DOCUMENTATION FORM, IMPORTANT VISIT INFORMATION, WORK / SCHOOL INSTRUCTIONS Patient Instructions My [facility] Additional Instructions Ms. Vaughan was admitted to [facility] due to the fact that she did not produce urine in over 24 hours. Her blood work and limited examination at the hospital was all normal, namely she did not have any signs of infection, nor was there any signs of kidney injury. Her bladder scan revealed 160mls of fluid in her bladder, which is normal, and not what one would expect in someone who is retaining urine. We feel at this time that she is safe for discharge, given that there were no abnormal finding on our investigations. If she does, however, develop a fever, chills, shows signs of being in pain or discomfort, or continues not to produce urine, please seek medical attention.
[2017-03-24 18:48] VITALS: PULSE 100
[2017-03-24] MEDS ORDERED: PRAV20TA2 PO (20:51)
[2017-03-24] MEDS ORDERED: FEXO1TAB46 PO (20:51)
[2017-03-24] MEDS ORDERED: MONT1TAB3 PO (20:51)
[2017-03-24] MEDS ORDERED: DOXE10CA PO (20:51)
[2017-03-24] MEDS ORDERED: AMOX500C3 PO (21:12)
[2017-03-24] MEDS ORDERED: ALBINS/ NEB (21:16)
== END 2017-03-24 18:35 | disposition home or self-care (01) ==
LOC: C.EDB 14:11 → C.EDA 18:35
DX: N39.9 Disorder of urinary system, unspecified (principal); E78.5 Hyperlipidemia, unspecified; F41.9 Anxiety disorder, unspecified; F72 Severe intellectual disabilities; Z79.899 Other long term (current) drug therapy; Z88.8 Allergy status to other drugs, medicaments and biological substances; Z80.9 Family history of malignant neoplasm, unspecified

== ENCOUNTER 2017-04-13 17:41 | Emergency (ER) | payer OTHER ==
[~2017-04-13 17:41] MED LIST changes: +ACET-1346 PO; +ALBINS/ NEB; -BISA10SU38 PR; -CLON0.5T3 PO; +DIAZ-165 PO; -DIAZ5TAB PO; -DIPH1TAB87 PO; -DOCU100C31 PO; +DOCU10LI PO; -GFNSR600 PO; +GUAI100S16 PO; -HYDR1OIN11 TOP; -IBUP1CAP9 PO; +MAGN400T6 PO; +NAPR-1221 PO; -NYST1OIN9 TD; +POLY1POW2 PO; -POTA10CA28 PO; +POTA10TA PO; +PSYL48.59 PO; -RBTDMUDL5 PO; +SOLARCAINE ALOE TOP; -TRAZ100T29 PO; +TRAZ1TAB52 PO; -TYLOTC500 PO; +[UNRECOGNIZED DRUG - CODE] PO; -[UNRECOGNIZED DRUG - CODE] PO; -[UNRECOGNIZED DRUG - CODE] TOP
[2017-04-13] MEDS ORDERED: [UNRECOGNIZED DRUG - CODE] TOP (17:42)
[2017-04-13] MEDS ORDERED: STARPOW19 PO (17:42)
[2017-04-13] MEDS ORDERED: PRLSR20 PO (17:42)
[2017-04-13 17:50] VITALS: TEMP 36.5
[2017-04-13] MEDS ORDERED: DIAZEPAM 5MG TAB PO ONE (18:30)
[2017-04-13 19:02] LABS: BASO % 0.5 %; BASO ABS # 0.04 K/uL (0-0.2); EOS % 1.6 %; EOS ABS # 0.13 K/uL (0-0.5); HEMOGLOBIN 13.1 g/dL (12.0-16.0); IG# 0.02 K/uL (0.00-0.02); LYMPH % 23.4 %; LYMPH ABS # 1.95 K/uL (1.2-3.4); MEAN PLATELET VOLUME 9.6 fL (7.4-10.4); MONO % 12.2 %; MONO ABS # 1.02 K/uL (0.11-0.59); NEUT % 62.1 %; NEUT ABS # 5.19 K/uL (1.4-6.5); PLATELET COUNT 324 K/uL (130-400); RED CELL DISTRIBUTION WIDTH CV 16.6 % (11.5-14.5); RED CELL DISTRIBUTION WIDTH SD 57.2 fL (36.4-46.3); WHITE BLOOD COUNT 8.35 K/uL (4.8-10.8)
--- NOTE | 2017-04-13 19:10 | EMERGENCY ROOM VISIT NOTE ---
History Report prepared by Luma: Nelia Stafford Under the Supervision of: Dr. Richard Badillo M.D. First contact with patient: 18:00 Chief Complaint: SWELLING TO EXTREMITY Stated Complaint: RT SWOLLEN FOOT/ANKLE History of Present Illness The patient is a 46 year old white female with a past medical history of intellectual disability, Angelman syndrome, asthma, HLD and HTN who presents to the ED with a cc of worsening swelling to the RLE for the past week. The patient is non-verbal and the history is obtained from [facility] staff at bedside. The patient has had some slight swelling to her right foot for a couple of weeks. It was initially diagnosed as dry skin at a [id number]. The patient' s symptoms worsened over the past week and she was diagnosed with cellulitis 4 days ago. She was placed on cephalexin. Staff states that the swelling redness have continued to worsen. They called her PCP today and were advised to bring the patient to the ED for further evaluation. The patient does not have any history of blood clots. HPI is limited secondary to the patient's baseline mental status. Source of History: patient History Limited By: other (mental status) Onset: 1 week ago Position: foot (right) Quality: other (swelling) Timing: worsening Note: Pt has redness to foot. Review of Systems ROS is limited secondary to the patient's baseline mental status. Past Medical & Surgical Medical Problems: (1) Acute respiratory failure with hypoxia (2) ANXIETY STATE NOS (3) Aspiration pneumonia (4) HYPERLIPIDEMIA NEC/NOS (5) HYPOXEMIA (6) SEVERE MENTAL RETARDAT Family History FHx: cancer Social History Smoking Status: Never Smoker Alcohol Use: none Drug Use: none Marital Status: single Housing Status: assisted living Occupation Status: disabled Current/Historical Medications Scheduled Cephalexin Monohydrate (Keflex), 500 MG PO Q12 Diazepam (Valium), 5 MG PO TID Doxepin Hcl (Sinequan), 10 MG PO QD@2000 Fexofenadine Hcl (Nasrin), 180 MG PO QAM Fluticasone Propionate (Nasal) (Flonase Allergy Relief), 2 SPRAYS RAGHAV QAM Guaifenesin (Guaifenesin), 20 ML PO BID Lactobacillus (Floranex), 2 TABS PO BID Levonorgestrel & Eth Estradiol (Marlissa), 1 TAB PO UD Magnesium Oxide (Mag-Ox), 400 MG PO BID Montelukast Sodium (Singulair), 10 MG PO HS Omeprazole (Prilosec), 20 MG PO DAILY Polyethylene Glycol 3350 (Bulk (Polyethylene Glycol 3350), 17 GM PO Q2D Potassium Chloride (K-Tabs), 10 MEQ PO BID Pravastatin Sodium (Pravachol), 20 MG PO HS Psyllium (Metamucil), 1 TBS PO BID Sertraline (Zoloft), 25 MG PO DAILY Starch-Maltodextrin (Thickenin (Thick-It Original), 1 DOSE PO UD Trazodone Hcl (Desyrel), 150 MG PO HS [Silace 50MG/5ML], 10 ML PO BID Scheduled PRN Acetaminophen (Acetaminophen), 650 MG PO Q4H PRN for SOLO/General Discomfort/Fever Amoxicillin (Amoxil), 2,000 MG PO UD PRN for Prior to Dental Appointment(s) Emollient (Cetaphil Moisturizing), 1 APPLN TOP TID PRN for DRYNESS Naproxen (Naproxen), 375 MG PO BID PRN for Pain Powders (Vagisil Deodorant), 1 APPL TOP UD PRN for Vaginal Redness/Itch Allergies Coded Allergies: Etomidate (Verified Allergy, Unknown, UNKNOWN, 02/27/17) Haloperidol (Verified Allergy, Unknown, 02/27/17) Physical Exam Vital Signs Date Time Temp Pulse Resp B/P (MAP) Pulse Ox O2 Delivery O2 Flow Rate FiO2 04/13/17 21:45 87 20 98 04/13/17 17:50 36.5 82 18 97 Room Air Physical Exam PE limited secondary to patient interaction. GENERAL: Awake, alert, well-appearing, NAD HENT: Normocephalic, atraumatic. EYES: Normal conjunctiva. Sclera non-icteric. NECK: Supple. No nuchal rigidity. FROM. RESPIRATORY: CTAB, no rhonchi, wheezing, crackles CARDIAC: RRR, no MRG ABDOMEN: Soft, NTND, BS+ MSK: No chest wall TTP. Some swelling and redness to the RLE, blanching erythema , right greater than left. Compartments are soft, she has some pretibial edema. NEURO: GCS 11, CN 2-12 intact, moves all 4s SKIN: No rash or jaundice noted. Medical Decision & Procedures ER Provider Diagnostic Interpretation: Radiology results as stated below per my review and radiologist interpretation: ULTRASOUND RIGHT LOWER EXTREMITY ARTERIAL LIMITED CLINICAL HISTORY: Right leg swelling. COMPARISON STUDY: No priors. FINDINGS: Real-time, grayscale, and color Doppler sonography of the right posterior tibial artery and the right dorsalis pedis artery is performed at the indicated site of interest. The dorsalis pedis artery is patent with velocities measuring up to 100 cm/s. Arterial waveforms are maintained. The posterior tibial artery is patent with velocities measuring up to 148 cm/s. Subcutaneous soft tissue edema is noted in this region. IMPRESSION: 1. The right posterior tibial and dorsalis pedis arteries are patent. 2. Soft tissue edema is noted in this region. Electronically signed by: Joselo Spivey M.D. 04/13/2017 8:24 PM Dictated Date/Time: 04/13/2017 8:22 PM ULTRASOUND RIGHT LOWER EXTREMITY VENOUS CLINICAL HISTORY: Right leg swelling. COMPARISON STUDY: Bilateral lower extremity venous ultrasound dated 03/17/2009. TECHNIQUE: Real-time, grayscale, and color Doppler sonography of the deep veins of the right lower extremity was performed from the inguinal crease to the calf. Compression and augmentation were utilized. The examination is degraded by lack of patient cooperation. FINDINGS: There is no sonographic evidence of deep venous thrombosis identified in the right lower extremity. The common femoral, superficial femoral, and popliteal veins are patent and normally compressible. The greater saphenous vein and the profunda femoris vein at the junction with the common femoral vein are clear. The visualized calf veins are patent. IMPRESSION: There is no sonographic evidence of deep venous thrombosis identified in the right lower extremity. Electronically signed by: Joselo Spivey M.D. 04/13/2017 8:25 PM Dictated Date/Time: 04/13/2017 8:24 PM Laboratory Results 04/13/17 18:50 Red Blood Count 4.36, Mean Corpuscular Volume 94.0, Mean Corpuscular Hemoglobin 30.0, Mean Corpuscular Hemoglobin Concent 32.0, Mean Platelet Volume 9.6, Neutrophils (%) (Auto) 62.1, Lymphocytes (%) (Auto) 23.4, Monocytes (%) (Auto) 12.2, Eosinophils (%) (Auto) 1.6, Basophils (%) (Auto) 0.5, Neutrophils # (Auto ) 5.19, Lymphocytes # (Auto) 1.95, Monocytes # (Auto) 1.02, Eosinophils # (Auto ) 0.13, Basophils # (Auto) 0.04 04/13/17 18:50 Test 04/13/17 18:50 White Blood Count 8.35 K/uL (4.8-10.8) Red Blood Count 4.36 M/uL (4.2-5.4) Hemoglobin 13.1 g/dL (12.0-16.0) Hematocrit 41.0 % (37-47) Mean Corpuscular Volume 94.0 fL (80-100) Mean Corpuscular Hemoglobin 30.0 pg (25-34) Mean Corpuscular Hemoglobin Concent 32.0 g/dl (32-36) Platelet Count 324 K/uL (130-400) Mean Platelet Volume 9.6 fL (7.4-10.4) Neutrophils (%) (Auto) 62.1 % Lymphocytes (%) (Auto) 23.4 % Monocytes (%) (Auto) 12.2 % Eosinophils (%) (Auto) 1.6 % Basophils (%) (Auto) 0.5 % Neutrophils # (Auto) 5.19 K/uL (1.4-6.5) Lymphocytes # (Auto) 1.95 K/uL (1.2-3.4) Monocytes # (Auto) 1.02 K/uL (0.11-0.59) Eosinophils # (Auto) 0.13 K/uL (0-0.5) Basophils # (Auto) 0.04 K/uL (0-0.2) RDW Standard Deviation 57.2 fL (36.4-46.3) RDW Coefficient of Variation 16.6 % (11.5-14.5) Immature Granulocyte % (Auto) 0.2 % Immature Granulocyte # (Auto) 0.02 K/uL (0.00-0.02) Anion Gap 5.0 mmol/L (3-11) Estimated GFR () 93.2 Estimated GFR (Non- 80.4 BUN/Creatinine Ratio 12.5 (10-20) Calcium Level 9.4 mg/dl (8.5-10.1) Laboratory results reviewed by me. Medications Administered Medications (Trade) Dose Ordered Sig/Kiera Route Start Time Stop Time Status Last Admin Dose Admin Diazepam (Valium Tab) 5 mg NOW ONCE PO 04/13/17 18:30 04/13/17 18:31 DC 04/13/17 18:48 5 MG ED Course 1802: The patient was evaluated in room C8. A complete history and physical exam was performed. 2051: I reassessed the patient at this time. She is resting comfortably. I discussed the results and treatment plan with the patient's caretakers. I answered all pertaining questions that they had. They expressed understanding and verbalized agreement. The patient will be discharged home. Medical Decision The patient is a 46 year old white female with a past medical history of intellectual disability, Angelman syndrome, asthma, HLD and HTN who presents to the ED with a cc of worsening swelling to the RLE for the past week. Differential diagnosis: Etiologies such as cellulitis, abscess, MRSA infection, DVT, necrotizing fasciitis, dermatitis, drug eruption, musculoskeletal, infection, joint effusion , trauma, lymphedema, idiopathic, CHF, as well as others were entertained. Patient was seen and evaluated the bedside. The patient's history and physical exam was somewhat limited based on the patient's intellectual disability. Patient does have some swelling to the right lower extremity. Patient does have some blanching erythema however is not very warm. Patient is moving the right lower extremity without difficulty. Patient did have blood work completed along with a venous and arterial Doppler. Patient's white blood cell count was normal. Patient has no left shift. The patient's Dopplers were negative for any DVT or arterial thrombus. Given this with a normal white blood cell count I do not believe that the patient is so as cellulitis. Patient may have some sort of lymphedema. Given that it is unilateral less likely CHF. The patient is very well-appearing. I told the caretakers to continue the antibiotics and to follow-up with the physician and discuss possibly changing the antibiotic. Again the patient is very well-appearing and do not believe that she requires further inpatient treatment. Believe she suitable for outpatient follow-up. Patient was given strict follow-up, discharge , and return precautions. All questions were answered. Patient was deemed suitable for outpatient follow-up at this time. Patient agreed with the plan of care and was safely discharged home. The chart was completed utilizing [employer] voice recognition software. Grammatical errors, random word insertions, pronoun errors, and incomplete sentences are an occasional consequence of this system due to software limitations, ambient noise, and hardware issues. Any formal questions or concerns about the content, text, or information contained within the body of this dictation should be directly addressed to the physician for clarification. Medication Reconcilliation Current Medication List: was personally reviewed by me Impression Primary Impression: Swelling of right extremity Scribe Attestation The scribe's documentation has been prepared under my direction and personally reviewed by me in its entirety. I confirm that the note above accurately reflects all work, treatment, procedures, and medical decision making performed by me. Departure Information Dispostion Home / Self-Care Referrals Juan Lowry D.O. (PCP) Forms HOME CARE DOCUMENTATION FORM, IMPORTANT VISIT INFORMATION, WORK / SCHOOL INSTRUCTIONS Patient Instructions ED Leg Swelling Unilateral, My [facility] Additional Instructions Please return to the emergency department if you have worsening or recurrent symptoms not amenable to at-home treatment. Please call for a follow-up appointment with her primary care physician. Please take your medications as prescribed. If you have other concerns and/or complaints please feel free to also call your primary care physician's office or return the ED for further evaluation, management, and treatment. Please try an Percy wrap for compression stocking. Please follow-up with your PCP and discuss an antibiotic change. As we discussed you had a negative arterial and venous ultrasound of the right lower extremity. Lower leg blood cell count was within normal limits. Please convey this information to your PCP. If they would like the records please tell them to call for release of information. Take your medications as prescribed. If taking an antibiotic consider taking a probiotic and/or eating yogurt, but at the least, please take with food as it can cause upset stomach. If culture results are not available at discharge, if they are positive for concern of infection, you will be informed of the results as soon as they are available. If you were seen between 11pm and 7AM all radiology reads will be re-read by our in house staff. If any major discrepancies are discovered, you will be notified. You have been examined and treated today on an emergency basis only. This is not a substitute for, or an effort to provide, complete comprehensive medical care. It is impossible to recognize and treat all injuries or illnesses in a single emergency department visit. It is therefore important that you follow up closely with [facility], your PCP, and/or your specialist(s). Call as soon as possible for an appointment. Thank you for your time and consideration. I look forward to speaking with you again soon. Please don't hesitate to call us if you have any questions.
[2017-04-13 19:25] LABS: BLOOD UREA NITROGEN 11 mg/dl (7-18); CALCIUM 9.4 mg/dl (8.5-10.1); CARBON DIOXIDE 31 mmol/L (21-32); CREATININE 0.86 mg/dl (0.60-1.20); GLUCOSE 107 mg/dl (70-99); POTASSIUM 4.3 mmol/L (3.5-5.1); SODIUM 136 mmol/L (136-145)
--- NOTE | 2017-04-13 20:25 | DIAGNOSTIC IMAGING REPORT ---
ULTRASOUND RIGHT LOWER EXTREMITY ARTERIAL LIMITED CLINICAL HISTORY: Right leg swelling. COMPARISON STUDY: No priors. FINDINGS: Real-time, grayscale, and color Doppler sonography of the right posterior tibial artery and the right dorsalis pedis artery is performed at the indicated site of interest. The dorsalis pedis artery is patent with velocities measuring up to 100 cm/s. Arterial waveforms are maintained. The posterior tibial artery is patent with velocities measuring up to 148 cm/s. Subcutaneous soft tissue edema is noted in this region. IMPRESSION: 1. The right posterior tibial and dorsalis pedis arteries are patent. 2. Soft tissue edema is noted in this region. Electronically signed by: Joselo Spivey M.D. 04/13/2017 8:24 PM Dictated Date/Time: 04/13/2017 8:22 PM
--- NOTE | 2017-04-13 20:26 | DIAGNOSTIC IMAGING REPORT ---
ULTRASOUND RIGHT LOWER EXTREMITY VENOUS CLINICAL HISTORY: Right leg swelling. COMPARISON STUDY: Bilateral lower extremity venous ultrasound dated 03/17/2009. TECHNIQUE: Real-time, grayscale, and color Doppler sonography of the deep veins of the right lower extremity was performed from the inguinal crease to the calf. Compression and augmentation were utilized. The examination is degraded by lack of patient cooperation. FINDINGS: There is no sonographic evidence of deep venous thrombosis identified in the right lower extremity. The common femoral, superficial femoral, and popliteal veins are patent and normally compressible. The greater saphenous vein and the profunda femoris vein at the junction with the common femoral vein are clear. The visualized calf veins are patent. IMPRESSION: There is no sonographic evidence of deep venous thrombosis identified in the right lower extremity. Electronically signed by: Josleo Spivey M.D. 04/13/2017 8:25 PM Dictated Date/Time: 04/13/2017 8:24 PM
[2017-04-13] MEDS ORDERED: EMOLCRE TOP (20:34)
[2017-04-13] MEDS ORDERED: SILACE PO (20:34)
[2017-04-13] MEDS ORDERED: CEPH500C2 PO (20:38)
[2017-04-13] MEDS ORDERED: MONT1TAB3 PO (20:51)
[2017-04-13] MEDS ORDERED: PRAV20TA2 PO (20:51)
[2017-04-13] MEDS ORDERED: DOXE10CA PO (20:51)
[2017-04-13] MEDS ORDERED: FEXO1TAB46 PO (20:51)
[2017-04-13] MEDS ORDERED: AMOX500C3 PO (21:12)
[2017-04-13 21:45] VITALS: PULSE 87; O2SAT 98
== END 2017-04-13 21:49 | disposition home or self-care (01) ==
LOC: C.EDB 17:42 → C.EDC 21:49
DX: R60.0 Localized edema (principal); L03.115 Cellulitis of right lower limb; F72 Severe intellectual disabilities; Q93.5 Other deletions of part of a chromosome; J45.909 Unspecified asthma, uncomplicated; E78.5 Hyperlipidemia, unspecified; I10 Essential (primary) hypertension; F41.9 Anxiety disorder, unspecified

== ENCOUNTER 2017-06-17 13:47 | Emergency (ER) | payer OTHER ==
[~2017-06-17 13:47] MED LIST changes: -ALBINS/ NEB; -ALUMSUS2 PO; +AMOX500C3 PO; +CEPH500C2 PO; -DOCU10LI PO; +DOXE10CA PO; +EMOLCRE TOP; +FEXO1TAB46 PO; -LOPE-5 PO; +MONT1TAB3 PO; -MULTTAB58 PO; -NEOMOIN3 TOP; +PRAV20TA2 PO; +PRLSR20 PO; +SILACE PO; -SOLARCAINE ALOE TOP; +STARPOW19 PO; +[UNRECOGNIZED DRUG - CODE] TOP
--- NOTE | 2017-06-17 14:24 | EMERGENCY ROOM VISIT NOTE ---
History Report prepared by Luma: Jack Martinez Under the Supervision of: Dr. Wai Chow M.D. First contact with patient: 14:17 Chief Complaint: REFERRED BY DOCTOR Stated Complaint: REF BY DR FOR CATHETER History of Present Illness The patient is a 47 year old female who presents to the Emergency Room with complaints of constant bilateral leg swelling that began 3 months ago. Per her salesforce business analyst, the patient has Angelman Syndrome and was seen by Dr. Damon who referred her to the ED for a straight catheter placement (with security holding her down) and a protein test. Dr. Damon and Urology refused to place the catheter. The salesforce business analyst states that the patient is going to be placed in restraints. Per her salesforce business analyst, the patient has aspirated on apple skins in the past and her SOB is unchanged from baseline. She was previously admitted for pneumonia in February. In February, her albumin was mildly low. She was seen for the same problem in March with negative ultrasounds and unremarkable CBCs and BMPs. Source of History: patient, transfer records, caregiver Onset: 3 months ago Position: leg (bilateral) Quality: other (swelling) Timing: constant Associated Symptoms: + SOB (unchanged from baseline) Review of Systems See HPI for pertinent positives & negatives. A total of 6 systems reviewed and were otherwise negative. Past Medical & Surgical Medical Problems: (1) Acute respiratory failure with hypoxia (2) Angelman syndrome (3) ANXIETY STATE NOS (4) Aspiration pneumonia (5) HYPERLIPIDEMIA NEC/NOS (6) HYPOXEMIA (7) SEVERE MENTAL RETARDAT Family History FHx: cancer Social History Smoking Status: Never Smoker Alcohol Use: none Drug Use: none Marital Status: single Housing Status: assisted living Occupation Status: disabled Current/Historical Medications Scheduled Diazepam (Valium), 5 MG PO TID Doxepin Hcl (Sinequan), 10 MG PO QD@2000 Ethinyl Estradiol/Levonorgest (Dodge-28), 1 TAB PO UD Fexofenadine Hcl (Nasrin), 180 MG PO QAM Fluticasone Propionate (Nasal) (Flonase Allergy Relief), 2 SPRAYS RAGHAV QAM Guaifenesin (Guaifenesin), 20 ML PO BID Lactobacillus (Floranex), 2 TABS PO BID Magnesium Oxide (Mag-Ox), 400 MG PO BID Montelukast Sodium (Singulair), 10 MG PO HS Omeprazole (Prilosec), 20 MG PO DAILY Polyethylene Glycol 3350 (Bulk (Polyethylene Glycol 3350), 17 GM PO Q2D Potassium Chloride (K-Tabs), 10 MEQ PO BID Pravastatin Sodium (Pravachol), 20 MG PO HS Psyllium (Metamucil), 1 TBS PO BID Sertraline (Zoloft), 25 MG PO DAILY Starch-Maltodextrin (Thickenin (Thick-It Original), 1 DOSE PO UD Trazodone Hcl (Desyrel), 150 MG PO HS [Silace 50MG/5ML], 10 ML PO BID Scheduled PRN Acetaminophen (Acetaminophen), 650 MG PO Q4H PRN for SOLO/General Discomfort/Fever Amoxicillin (Amoxil), 2,000 MG PO UD PRN for Prior to Dental Appointment(s) Emollient (Cetaphil Moisturizing), 1 APPLN TOP TID PRN for DRYNESS Naproxen (Naproxen), 375 MG PO BID PRN for Pain Powders (Vagisil Deodorant), 1 APPL TOP UD PRN for Vaginal Redness/Itch Allergies Coded Allergies: Etomidate (Verified Allergy, Unknown, UNKNOWN, 06/17/17) Haloperidol (Verified Allergy, Unknown, 06/17/17) Physical Exam Vital Signs Date Time Temp Pulse Resp B/P (MAP) Pulse Ox O2 Delivery O2 Flow Rate FiO2 06/17/17 17:47 114 28 170/63 88 Room Air Physical Exam GENERAL: Patient is severely intellectually disabled and in no acute distress though gets very upset with listening to her. EYES: No scleral icterus, unremarkable pupils. ENT: Mucous membranes moist, no nasal congestion. NECK: No masses appreciated, no meningismus, trachea is midline. RESPIRATORY: No dyspnea. Clear to auscultation and equal bilaterally. No wheeze , no rhonchi. CARDIOVASCULAR: Regular rate and rhythm. No murmurs, rubs, gallops appreciated. EXTREMITIES: Bilateral lower leg edema, equal, and nontender. Normal motion all extremities, no cyanosis. NEUROLOGIC: Alert and oriented, no acute motor or sensory deficits, no focal weakness, cranial nerves grossly intact. SKIN: No rash, no jaundice, no diaphoresis. Medical Decision & Procedures Laboratory Results Test 06/17/17 16:30 Urine Color YELLOW Urine Appearance CLEAR (CLEAR) Urine pH 7.0 (4.5-7.5) Urine Specific Blanchard 1.026 (1.000-1.030) Urine Protein NEG (NEG) Urine Glucose (UA) NEG (NEG) Urine Ketones NEG (NEG) Urine Occult Blood TRACE (NEG) Urine Nitrite NEG (NEG) Urine Bilirubin NEG (NEG) Urine Urobilinogen NEG (NEG) Urine Leukocyte Esterase NEG (NEG) Urine WBC (Auto) 1-5 /hpf (0-5) Urine RBC (Auto) 0-4 /hpf (0-4) Urine Hyaline Casts (Auto) 5-10 /lpf (0-5) Urine Epithelial Cells (Auto) >30 /lpf (0-5) Urine Bacteria (Auto) NEG (NEG) Urine Renal Epithelial Cells 10-20 /lpf (0-5) Urine Random Creatinine 187.0 mg/dl Laboratory results as reviewed by me. Medications Administered Medications (Trade) Dose Ordered Sig/Kiera Route Start Time Stop Time Status Last Admin Dose Admin Lorazepam (Ativan Inj) 2 mg NOW STAT IM 06/17/17 15:06 06/17/17 15:07 DC 06/17/17 15:26 2 MG ED Course 1417: The patient was evaluated in room A2. A complete history and physical exam was performed. 1445: I spoke with the head of [facility] who said Dr. Damon would speak with the ED. I explained my concerns that having security hold the patient down to place a catheter in would be considered assault. I still have not heard back from her. 1450: I had an extensive conversation with Dr. Damon. She reiterates that the patient needs to have her protein checked. She admits that this is not an emergent problem. She admits that she has not spoken with anybody else for this. 1500: I had a conversation with the patient's father ([phone]). He and the patient's mother note that the patient should be held down and have a catheter placed. 1506: I checked on the patient and she is getting worked up. We are going to give her some Ativan prior to the catheter placement. 1600: Reevaluated the patient. Discussed results and discharge instructions: The patient and her salesforce business analyst verbalized understanding and agreement. The patient is ready for discharge. Medical Decision 47 yr old female with severe ID who lives in [facility] arrives for evaluation of leg swelling. Sent over by PCP for straight cath UA. She has been seen multiple times previously here for this with negative bilateral dopplers and normal labs. Has had to be sedated just to get lab previously. Sent by PCP because they are unable to get UA in clinic nor would Urology be able to do it. I discussed this with PCP and made it clear I feel this is not an emergent issue, which she agrees it is definitely not an emergent issue but thought it would be easier to send to ER. I made it further clear I am confused what this will change in the urgent environment. Regardless PCP, patient's father and caregivers wish this to be done while they are here. I made it clear that I am uncomfortable with this but in order to expedite patients care I did go ahead with getting Cath done which was negative for protein. Advised follow up with PCP. Discharged with patient care specialist in no distress. Medication Reconcilliation Current Medication List: was personally reviewed by me Consults Time Called: 1421 Consulting Physician: Dr. Damon Returned Call: [phone] I had an extensive conversation with Dr. Damon. She reiterates that the patient needs to have her protein checked. She admits that this is not an emergent problem. She admits that she has not spoken with anybody else for this. Impression Primary Impression: Normal urinalysis Additional Impression: Leg swelling Scribe Attestation The scribe's documentation has been prepared under my direction and personally reviewed by me in its entirety. I confirm that the note above accurately reflects all work, treatment, procedures, and medical decision making performed by me. Departure Information Dispostion Home / Self-Care Referrals Juan Lowry D.O. (PCP) Forms HOME CARE DOCUMENTATION FORM, IMPORTANT VISIT INFORMATION, WORK / SCHOOL INSTRUCTIONS Patient Instructions ED Leg Swelling Bilateral, My [facility] Additional Instructions The Urinalysis was essentially normal from the emergency medicine standpoint, though there is Creatinine measurement that will need follow up with Primary Provider. Problem Qualifiers
[2017-06-17] MEDS ORDERED: LORAZEPAM 2 MG/ML 1 ML VIAL IM STA (15:06)
[2017-06-17] MEDS ORDERED: [UNRECOGNIZED DRUG - CODE] PO (16:26)
[2017-06-17 17:47] VITALS: BP 170/63; PULSE 114; O2SAT 88
== END 2017-06-17 17:57 | disposition home or self-care (01) ==
LOC: C.EDB 13:48 → C.EDA 17:57
DX: R60.0 Localized edema (principal); Z13.89 Encounter for screening for other disorder; Q93.5 Other deletions of part of a chromosome; F41.9 Anxiety disorder, unspecified; E78.5 Hyperlipidemia, unspecified; Z79.3 Long term (current) use of hormonal contraceptives; Z87.09 Personal history of other diseases of the respiratory system; Z88.8 Allergy status to other drugs, medicaments and biological substances